=== PATIENT | male | born 1960 | race Caucasian/White ===

== ENCOUNTER 2019-01-05 16:57 | Inpatient (IN) | payer OTHER ==
[~2019-01-05] VITALS: Ht 177.8 cm; Wt 80.0 kg
[2019-01-06] VITALS (11 sets, daily range): BP systolic 113–139; BP diastolic 54–88; PULSE 60–101; RESP 18–20; Ht 177.8 cm; Wt 80.0 kg
[2019-01-06] MEDS ORDERED: VANCOMYCIN IV PER PHARMACY XX SCH (01:00)
[2019-01-06] MEDS ORDERED: ONDANSETRON 4 MG INJ IV PRN (01:00)
[2019-01-06] MEDS ORDERED: ACETAMINOPHEN 325 MG TAB PO PRN (01:00)
[2019-01-06] MEDS ORDERED: VANCOMYCIN HCL 1.5 GM in SOD CHLORIDE 0.9% 250 ML IVPB ONE (02:00)
[2019-01-06] MEDS: RANITIDINE 150 MG TAB PO SCH ×3 (02:18→20:12)
--- NOTE | 2019-01-06 03:18 | HP ---
Date/Time of Note Date/Time of Note DATE: 01/06/19 TIME: 03:14 Assessment/Plan VTE Prophylaxis SCD applied (from Ns): Yes Pharmacological prophylaxis: other Assessment/Plan Hospital Course Assessment and plan: 58-year-old male past medical history of indwelling catheter secondary to recurrent UTIs, hypospadism, homelessness, hypertension, drug abuse, who was transferred over here due to insurance purposes after presenting to outside emergency room with chills and body aches, signs of likely urinary tract infection. 1. Recurrent UTIs: Again patient has positive UA and elevated white blood cell count. History of recurrent UTIs multidrug-resistant -For now patient will be placed on aztreonam antibiotics given his penicillin allergy, and will obtain infectious disease consult. -Follow-up TSH, A1c, lipid panel. Tylenol PRN pain fevers, follow final culture results, IV fluids 2. Hypertension: Blood pressure is presently stable -Monitor, continue current PRN medications 3. Homelessness: We will get social work therapist consult 4. History of drug use: Counseled on cessation, monitor for signs of withdrawal HPI/ROS Admit Date/Time Admit Date/Time Jan 05, 2019 at 22:58 Hx of Present Illness 58-year-old male past medical history of indwelling catheter secondary to recurrent UTIs, hypospadism, homelessness, hypertension, drug abuse, who was transferred over here due to insurance purposes after presenting to outside emergency room with chills and body aches. Patient diagnosed with UTI as his white blood cell count was found to be elevated at the outside hospital in the 19,000 range. Patient has a history of MDR UTIs in the past and for the last couple of weeks she has been having increased urinary frequency and dysuria and inability to empty his bladder. He also complained of hematuria. Also has been having some urinary incontinence. No upper or lower GI bleeding, no chest pain or shortness of breath, no diarrhea constipation. 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 PMH/Family/Social Past Medical History Medications Current Medications Nicotine (Nicoderm 21 Mg/ 24hr) 1 patch DAILY TRANSDERM ; Start 01/06/19 at 01:00 Acetaminophen (Tylenol Tab) 650 mg Q6H PRN PO MILD PAIN(1-3)OR ELEVATED TEMP; Start 01/06/19 at 01:00 Acetaminophen/ Hydrocodone Bitart ([place] (5/325)) 1 tab Q6H PRN PO MODERATE PAIN LEVEL 4-6; Start 01/06/19 at 01:00 Sodium Chloride 1,000 ml @ 100 mls/hr Q10H IV ; Start 01/06/19 at 01:00 Lorazepam (Ativan) 1 mg Q6H PRN IV ANXIETY; Start 01/06/19 at 01:00 Ondansetron HCl (Zofran Inj) 4 mg Q6H PRN IV NAUSEA AND/OR VOMITING; Start 01/06/19 at 01:00 Vancomycin HCl (Vanco Iv Per Pharmacy) VANCOMYCIN PER PHARMACY PER PROTOCOL XX ; Start 01/06/19 at 01:00 Aztreonam 2 gm/ Sodium Chloride 100 ml @ 100 mls/hr Q12 IVPB ; Start 01/06/19 at 09:00 Vancomycin HCl 1.5 gm/Sodium Chloride 250 ml @ 83.333 mls/ hr ONCE ONCE IVPB ; Start 01/06/19 at 02:00; Stop 01/06/19 at 04:59 Ranitidine HCl (Zantac) 150 mg BID PO Last administered on 01/06/19at 02:18; Admin Dose 150 MG; Start 01/06/19 at 02:01 Coded Allergies: Penicillins (Verified Allergy, Unknown, 12/05/13) Sulfa (Sulfonamide Antibiotics) (Verified Allergy, Unknown, 12/05/13) aspirin (Verified Allergy, Unknown, 12/05/13) Past Surgical History Past Surgical Hx: other (Multiple surgical repairs for the hypo-Spadia) Social History Alcohol Use: none Smoking Status: Unknown if ever smoked Drug Use: other (Multiple drugs) Exam/Review of Systems Vital Signs Vitals Vital Signs Date Temp Pulse Resp B/P (MAP) Pulse Ox O2 O2 Flow FiO2 Time Delivery Rate 01/06/19 90 00:00 Exam Exam Gen: Lying in bed, no acute distress Head: Atraumatic. Eyes: Normal Conjunctiva. ENT: Normal External Ears, Nose and Mouth. Neck: Full range of motion. No meningismus. Resp: Clear to auscultation bilaterally. Cardio: Regular rate and rhythm. Abd: Soft, nondistended, normal bowel sounds, non tender. Ext: No lower extremity edema bilaterally Neuro: No focal deficits RADHA CORTEZ Jan 06, 2019 03:18
[2019-01-06] MEDS: NICOTINE (21 MG/24 HR) PATCH TRANSDERM SCH (04:28)
[2019-01-06] MEDS: SOD CHLORIDE 0.45% 1,000 ML IV SCH ×3 (04:29→20:12)
[2019-01-06] MEDS: HYDROCODONE/APAP (5/325) TAB PO PRN ×2 (05:10→18:24)
[2019-01-06] MEDS: LORAZEPAM 2 MG INJ IV PRN (05:54)
[2019-01-06] MEDS ORDERED: AZTREONAM 2 GM in SOD CHLORIDE 0.9% 100 ML IVPB SCH ×4 (09:00)
--- NOTE | 2019-01-06 10:36 | PN ---
Date/Time of Note Date/Time of Note DATE: 01/06/19 TIME: 10:33 Assessment/Plan VTE Prophylaxis SCD applied (from Nsg): Yes Pharmacological prophylaxis: heparin Lines/Catheters IV Catheter Type (from Nrsg): Saline Lock Urinary Cath still in place: Yes (10 TURKMEN) Reason Cath still needed: urinary retention Assessment/Plan Problems: (1) Bacteremia due to Gram-negative bacteria Status: Acute Comment: Patient's on vancomycin and aztreonam due to the possibility of penicillin allergy. In addition historically were informed he has had multiple recurrent urinary tract infections with multiple drug-resistant bacteria. Colleagues at [facility] have already called and informed us that his blood cultures are already positive. Check with them in the morning about any final sensitivities and then repeat his blood cultures. (2) Chronic indwelling Saunders catheter Status: Chronic Comment: Noted. He was seen [address] Cervantes. (3) Hypospadias in male Status: Chronic Comment: Noted. (4) Chemical dependency Status: Chronic Comment: We will have health care social worker see him I am also going to go ahead and do a urine drug screen (5) Homeless single person Status: Chronic Comment: rn women services consult Result Diagram: 01/06/19 0525 01/06/19 0525 Results 24hrs Laboratory Tests Test 01/06/19 05:25 White Blood Count 18.8 H Red Blood Count 3.14 L Hemoglobin 8.4 L Hematocrit 25.8 L Mean Corpuscular Volume 82.2 Mean Corpuscular Hemoglobin 26.8 L Mean Corpuscular Hemoglobin Concent 32.6 Red Cell Distribution Width 13.7 Platelet Count 432 H Mean Platelet Volume 10.6 H Immature Granulocytes % 1.900 H Neutrophils % 77.1 H Lymphocytes % 12.2 L Monocytes % 7.6 Eosinophils % 0.8 Basophils % 0.4 Nucleated Red Blood Cells % 0.0 Immature Granulocytes # 0.350 H Neutrophils # 14.5 H Lymphocytes # 2.3 Monocytes # 1.4 H Eosinophils # 0.2 Basophils # 0.1 Nucleated Red Blood Cells # 0.0 Blood Urea Nitrogen 47 H Creatinine 2.44 H Hemoglobin A1c 5.6 B-Type Natriuretic Peptide 214 H Triglycerides Level 101 Cholesterol Level 80 L LDL Cholesterol, Calculated 48 HDL Cholesterol 12 L Cholesterol/HDL Ratio 6.6 Thyroid Stimulating Hormone (TSH) < 0.015 L Subjective 24 Hr Interval Summary Free Text/Dictation Patient is sleeping and difficult to arouse actually appears to be narcotize Constitutional: no complaints Exam/Review of Systems Exam Vitals Vital Signs Date Temp Pulse Resp B/P (MAP) Pulse Ox O2 O2 Flow FiO2 Time Delivery Rate 01/06/19 76 08:15 01/06/19 98.3 18 113/69 97 Room Air 07:23 (84) Intake and Output 01/05/19 01/05/19 01/06/19 1515:00 23:00 07:00 IntakeIntake Total 2200 ml OutputOutput Total 1400 ml BalanceBalance 800 ml Constitutional: other (Difficult to arouse but does speak will not open his eyes) Neck: supple, non-tender Respiratory: clear to auscultation, normal air movement Cardiovascular: regular rate and rhythm, nl pulses Gastrointestinal: soft, nl liver, spleen, non-tender Genitourinary - Male: other (Post previous with chronic catheter) Results Results 24hrs Laboratory Tests Test 01/06/19 05:25 White Blood Count 18.8 H Red Blood Count 3.14 L Hemoglobin 8.4 L Hematocrit 25.8 L Mean Corpuscular Volume 82.2 Mean Corpuscular Hemoglobin 26.8 L Mean Corpuscular Hemoglobin Concent 32.6 Red Cell Distribution Width 13.7 Platelet Count 432 H Mean Platelet Volume 10.6 H Immature Granulocytes % 1.900 H Neutrophils % 77.1 H Lymphocytes % 12.2 L Monocytes % 7.6 Eosinophils % 0.8 Basophils % 0.4 Nucleated Red Blood Cells % 0.0 Immature Granulocytes # 0.350 H Neutrophils # 14.5 H Lymphocytes # 2.3 Monocytes # 1.4 H Eosinophils # 0.2 Basophils # 0.1 Nucleated Red Blood Cells # 0.0 Blood Urea Nitrogen 47 H Creatinine 2.44 H Hemoglobin A1c 5.6 B-Type Natriuretic Peptide 214 H Triglycerides Level 101 Cholesterol Level 80 L LDL Cholesterol, Calculated 48 HDL Cholesterol 12 L Cholesterol/HDL Ratio 6.6 Thyroid Stimulating Hormone (TSH) < 0.015 L Medications Medication Current Medications Nicotine (Nicoderm 21 Mg/ 24hr) 1 patch DAILY TRANSDERM Last administered on 01/06/19at 04:28; Admin Dose 1 PATCH; Start 01/06/19 at 01:00 Acetaminophen (Tylenol Tab) 650 mg Q6H PRN PO MILD PAIN(1-3)OR ELEVATED TEMP; Start 01/06/19 at 01:00 Acetaminophen/ Hydrocodone Bitart ([place] (5/325)) 1 tab Q6H PRN PO MODERATE PAIN LEVEL 4-6 Last administered on 01/06/19at 05:10; Admin Dose 1 TAB; Start 01/06/19 at 01:00 Sodium Chloride 1,000 ml @ 100 mls/hr Q10H IV Last administered on 01/06/19 04:29; Admin Dose 100 MLS/HR; Start 01/06/19 at 01:00 Lorazepam (Ativan) 1 mg Q6H PRN IV ANXIETY Last administered on 01/06/19at 05:54; Admin Dose 1 MG; Start 01/06/19 at 01:00 Ondansetron HCl (Zofran Inj) 4 mg Q6H PRN IV NAUSEA AND/OR VOMITING; Start 01/06/19 at 01:00 Vancomycin HCl (Vanco Iv Per Pharmacy) VANCOMYCIN PER PHARMACY PER PROTOCOL XX ; Start 01/06/19 at 01:00 Aztreonam 2 gm/ Sodium Chloride 100 ml @ 100 mls/hr Q12 IVPB Last administered on 01/06/19at 09:02; Admin Dose 100 MLS/HR; Start 01/06/19 at 09:00 Ranitidine HCl (Zantac) 150 mg BID PO Last administered on 01/06/19at 02:18; Admin Dose 150 MG; Start 01/06/19 at 02:01 Vancomycin HCl 250 ml @ 125 mls/hr Q24H IVPB ; Start 01/07/19 at 05:00 LOKI LICEA MD Jan 06, 2019 10:35
[2019-01-06] MEDS: MEROPENEM 1 GM/50ML(PMX) 50 ML IVPB SCH ×2 (12:35→20:12)
--- NOTE | 2019-01-06 12:51 | CONS ---
DATE OF ADMISSION: 01/05/2019 DATE OF CONSULTATION: 01/06/2019 TYPE OF CONSULTATION: Infectious disease. REASON FOR CONSULTATION: Antibiotic management. HISTORY OF PRESENT ILLNESS: Reji Roger is a 58-year-old male with a history of: 1. Indwelling catheter secondary to recurrent UTIs. 2. Hypospadias. 3. Hypertension. 4. Drug abuse. 5. Homelessness. He presented to an outside emergency room with chills and body aches. He was diagnosed with a urinar y tract infection and his white blood cell count was elevated in the 19,000 range. He has a history of multidrug resistant UTIs in the past and for the last couple of weeks he has been having increasin g urinary frequency and dysuria and inability to empty his bladder. He also complains of hematuria a nd urinary incontinence. He has had surgical repairs for is hypospadia in the past. PAST MEDICAL HISTORY: As outlined. PAST SURGICAL HISTORY: Multiple surgeries for hypospadia. ALLERGIES: NONE TO PENICILLIN, SULFA OR FOODS. MEDICATIONS: Per chart. REVIEW OF SYSTEMS: As per HPI. PHYSICAL EXAMINATION: GENERAL: The patient is a well-developed, well-nourished male, awake, responsive, in no acute distre ss. VITAL SIGNS: Stable. He is afebrile. SKIN: Without generalized rash. HEENT: Within normal limits. NECK: Supple. LYMPH NODES: None palpable. CHEST: Decreased breath sounds at the bases. HEART: Without murmur or gallop. ABDOMEN: Soft, nontender, without organosplenomegaly or masses. EXTREMITIES: Without cyanosis or clubbing or edema. RECTAL AND GENITAL: Deferred. NEUROLOGIC: No focal neurological abnormality. IMPRESSION AND PLAN: The patient has recurrent urinary tract infections. He has positive UA and jalen vated white count. Patient was placed on aztreonam given his PENICILLIN ALLERGY. He is also on vanc omycin. My feeling is that we can change the aztreonam to meropenem. Continue the vancomycin for time being and I will dictate my findings to the hospitalist and to Dr. Carver who noticed that the patient has bacteremia due to gram-negative rods. His blood cultures are positive according to Meghan tobin. He was seen previously by Dr. Cervantes. He has a chronic indwelling Saunders catheter. His white co unt is 18.8, H and H of 8.4 and 25.8, platelet count 432,000. BUN and creatinine 47/2.44. As noted, I will change his aztreonam to meropenem. Dictated By: ROBBY WILLARD MD, JD/MICHAEL Conf#: [id number] DID#: [id number] CC: HOLLY MINER MD;*EndCC*
--- NOTE | 2019-01-06 15:29 | CONS ---
Assessment/Plan Assessment/Plan Hospital Course (Demo Recall) 58-year-old male was sent to the emergency room by his primary care physician because of recurrent urinary tract infection that could not be treated as an outpatient as he does have multidrug-resistant organisms and he has multiple allergies to oral antibiotics. Patient is known to have a history of hypospadias and underwent surgeries for that. That was complicated by urethral strictures. The patient was seen here in 2013 with urinary retention. He was taught to do self-catheterization. After he is discharge he did it for 5 days and then he stopped. He states that his housing condition did change and that the reason he did not continue to do it. Over time he started having urinary incontinence and wetting himself. He recently also was evicted from his apartment and now is living in his car. He went to the emergency room at [facility] and they were able to insert a 10 [place] Saunders catheter for him and drained over 2 L of urine. Patient was transferred here because of his insurance. Presently the patient is doing better. The Saunders catheter is draining clear urine. Would recommend to keep the Saunders catheter in and in a day or 2 I will remove it and dilate his urethra and restart him on intermittent catheterization. We have to have him resume doing his self-catheterization. That will have 2 purposes one is to keep the urethra open and the second 1 to keep the bladder empty which is the reason why he developed recurrent infection and multidrug- resistant urinary tract infection. Consultation Date/Type/Reason Admit Date/Time Jan 05, 2019 at 22:58 Date of Consultation: Jan 06, 2019 Type of Consult Urology Reason for Consultation Urinary retention and recurrent urinary tract infections Requesting Provider: HOLLY MINER Date/Time of Note DATE: 01/06/19 TIME: 15:17 Hx of Present Illness 58-year-old male was sent to the emergency room by his primary care physician because of recurrent urinary tract infection that could not be treated as an outpatient as he does have multidrug-resistant organisms and he has multiple allergies to oral antibiotics. Patient is known to have a history of hypospad ias and underwent surgeries for that. That was complicated by urethral strictures. The patient was seen here in 2013 with urinary retention. He was taught to do self-catheterization. After he is discharge he did it for 5 days and then he stopped. He states that his housing condition did change and that the reason he did not continue to do it. Over time he started having urinary incontinence and wetting himself. He recently also was evicted from his apartment and now is living in his car. He went to the emergency room at [facility] and they were able to insert a 10 [place] Saunders catheter for him and drained over 2 L of urine. Patient was transferred here because of his insurance. Constitutional: no complaints Eyes: no complaints ENT: no complaints Respiratory: No shortness of breath Cardiovascular: No chest pain Gastrointestinal: other (He reports fecal incontinence at some time) Genitourinary: other (Urinary retention and urinary incontinence.) Musculoskeletal: no complaints Skin: no complaints Neurologic: no complaints Endocrine: no complaints Psychological: no complaints Past Medical History Medical History: urinary tract infection Home Meds No Active Prescriptions or Reported Meds Medications Current Medications Nicotine (Nicoderm 21 Mg/ 24hr) 1 patch DAILY TRANSDERM Last administered on 01/06/19at 04:28; Admin Dose 1 PATCH; Start 01/06/19 at 01:00 Acetaminophen (Tylenol Tab) 650 mg Q6H PRN PO MILD PAIN(1-3)OR ELEVATED TEMP; Start 01/06/19 at 01:00 Acetaminophen/ Hydrocodone Bitart ([place] (5/325)) 1 tab Q6H PRN PO MODERATE PAIN LEVEL 4-6 Last administered on 01/06/19at 05:10; Admin Dose 1 TAB; Start 01/06/19 at 01:00 Sodium Chloride 1,000 ml @ 100 mls/hr Q10H IV Last administered on 01/06/19at 04:29; Admin Dose 100 MLS/HR; Start 01/06/19 at 01:00 Lorazepam (Ativan) 1 mg Q6H PRN IV ANXIETY Last administered on 01/06/19at 05:54; Admin Dose 1 MG; Start 01/06/19 at 01:00 Ondansetron HCl (Zofran Inj) 4 mg Q6H PRN IV NAUSEA AND/OR VOMITING; Start 01/06/19 at 01:00 Vancomycin HCl (Vanco Iv Per Pharmacy) VANCOMYCIN PER PHARMACY PER PROTOCOL XX ; Start 01/06/19 at 01:00 Ranitidine HCl (Zantac) 150 mg BID PO Last administered on 01/06/19at 12:32; Admin Dose 150 MG; Start 01/06/19 at 02:01 Vancomycin HCl 250 ml @ 125 mls/hr Q24H IVPB ; Start 01/07/19 at 05:00 Meropenem/Sodium Chloride 50 ml @ 100 mls/hr Q12 IVPB Last administered on 01/06/19at 12:35; Admin Dose 100 MLS/HR; Start 01/06/19 at 12:00 Allergies: Coded Allergies: Penicillins (Verified Allergy, Unknown, 12/05/13) Sulfa (Sulfonamide Antibiotics) (Verified Allergy, Unknown, 12/05/13) aspirin (Verified Allergy, Unknown, 12/05/13) Past Surgical History Past Surgical Hx: other (Multiple surgical repairs for the hypospadias) Social History Alcohol Use: none Smoking Status: Former smoker Drug Use: other (Multiple drugs) Other Social History Patient is presently homeless Exam/Review of Systems Exam Vitals Vital Signs Date Temp Pulse Resp B/P (MAP) Pulse Ox O2 O2 Flow FiO2 Time Delivery Rate 01/06/19 98.0 60 18 114/54 97 Room Air 15:12 (74) Intake and Output 01/05/19 01/05/19 01/06/19 1515:00 23:00 07:00 IntakeIntake Total 2200 ml OutputOutput Total 1400 ml BalanceBalance 800 ml Constitutional: alert Psych: no complaints Head: normocephalic Eyes: nl conjunctiva ENMT: nl external ears & nose Neck: supple Respiratory: No wheezing Cardiovascular: No jugular venous distention (JVD) Gastrointestinal: soft; No bowel sounds, No surgical scars Genitourinary - Male: other (Hypospadias the urethral meatus is at the distal end of the penile shaft proximal to the silverman. Patient does have a 10 [place] Saunders catheter) Musculoskeletal: nl extremities to inspection Extremities: No calf tenderness Neurological: nl mental status Results Result Diagram: 01/06/19 0525 01/06/19 0525 Results 24hrs Laboratory Tests Test 01/06/19 05:25 01/06/19 12:54 White Blood Count 18.8 H Red Blood Count 3.14 L Hemoglobin 8.4 L Hematocrit 25.8 L Mean Corpuscular Volume 82.2 Mean Corpuscular Hemoglobin 26.8 L Mean Corpuscular Hemoglobin Concent 32.6 Red Cell Distribution Width 13.7 Platelet Count 432 H Mean Platelet Volume 10.6 H Immature Granulocytes % 1.900 H Neutrophils % 77.1 H Lymphocytes % 12.2 L Monocytes % 7.6 Eosinophils % 0.8 Basophils % 0.4 Nucleated Red Blood Cells % 0.0 Immature Granulocytes # 0.350 H Neutrophils # 14.5 H Lymphocytes # 2.3 Monocytes # 1.4 H Eosinophils # 0.2 Basophils # 0.1 Nucleated Red Blood Cells # 0.0 Blood Urea Nitrogen 47 H Creatinine 2.44 H Hemoglobin A1c 5.6 B-Type Natriuretic Peptide 214 H Triglycerides Level 101 Cholesterol Level 80 L LDL Cholesterol, Calculated 48 HDL Cholesterol 12 L Cholesterol/HDL Ratio 6.6 Thyroid Stimulating Hormone (TSH) < 0.015 L Iron Level 20 L Total Iron Binding Capacity 188 L Percent Iron Saturation 11 L Ferritin 411.0 H Rapid Plasma Reagin NONREACTIVE Hepatitis B Surface Antigen NEGATIVE Hepatitis C Antibody NEGATIVE Medications Medication Current Medications Nicotine (Nicoderm 21 Mg/ 24hr) 1 patch DAILY TRANSDERM Last administered on 01/06/19at 04:28; Admin Dose 1 PATCH; Start 01/06/19 at 01:00 Acetaminophen (Tylenol Tab) 650 mg Q6H PRN PO MILD PAIN(1-3)OR ELEVATED TEMP; Start 01/06/19 at 01:00 Acetaminophen/ Hydrocodone Bitart ([place] (5/325)) 1 tab Q6H PRN PO MODERATE PAIN LEVEL 4-6 Last administered on 01/06/19at 05:10; Admin Dose 1 TAB; Start 01/06/19 at 01:00 Sodium Chloride 1,000 ml @ 100 mls/hr Q10H IV Last administered on 01/06/19at 04:29; Admin Dose 100 MLS/HR; Start 01/06/19 at 01:00 Lorazepam (Ativan) 1 mg Q6H PRN IV ANXIETY Last administered on 01/06/19at 05:54; Admin Dose 1 MG; Start 01/06/19 at 01:00 Ondansetron HCl (Zofran Inj) 4 mg Q6H PRN IV NAUSEA AND/OR VOMITING; Start 01/06/19 at 01:00 Vancomycin HCl (Vanco Iv Per Pharmacy) VANCOMYCIN PER PHARMACY PER PROTOCOL XX ; Start 01/06/19 at 01:00 Ranitidine HCl (Zantac) 150 mg BID PO Last administered on 01/06/19at 12:32; Admin Dose 150 MG; Start 01/06/19 at 02:01 Vancomycin HCl 250 ml @ 125 mls/hr Q24H IVPB ; Start 01/07/19 at 05:00 Meropenem/Sodium Chloride 50 ml @ 100 mls/hr Q12 IVPB Last administered on 01/06/19at 12:35; Admin Dose 100 MLS/HR; Start 01/06/19 at 12:00 KELSI PARKER MD Jan 06, 2019 15:29
[2019-01-07] VITALS (9 sets, daily range): BP systolic 106–136; BP diastolic 58–74; PULSE 67–86; RESP 17–18
[2019-01-07] MEDS ORDERED: VANCOMYCIN 1 GM 250 ML IVPB SCH (05:00)
[2019-01-07] MEDS ORDERED: LACTATED RINGER'S 500 ML IV ONE ×2 (08:30→08:35)
[2019-01-07] MEDS: MEROPENEM 1 GM/50ML(PMX) 50 ML IVPB SCH ×2 (08:53→20:02)
[2019-01-07] MEDS: SOD CHLORIDE 0.45% 1,000 ML IV SCH ×2 (08:53→17:00)
[2019-01-07] MEDS: RANITIDINE 150 MG TAB PO SCH ×2 (08:55→20:02)
[2019-01-07] MEDS: NICOTINE (21 MG/24 HR) PATCH TRANSDERM SCH (08:55)
--- NOTE | 2019-01-07 10:14 | PN ---
Date/Time of Note Date/Time of Note DATE: 01/07/19 TIME: 10:10 Assessment/Plan VTE Prophylaxis Risk score (from [facility] [place])>0 risk: 1 SCD applied (from Ns): No SCD contraindicated: low risk/ambulating Pharmacological prophylaxis: heparin Pharm contraindication: low risk/ambulating Lines/Catheters IV Catheter Type (from [facility]): Peripheral IV Urinary Cath still in place: Yes (10 slovak) Reason Cath still needed: urinary retention Assessment/Plan Problems: (1) Bacteremia due to Gram-negative bacteria Status: Acute Comment: I called the [facility] and the [facility] laboratory. They identify the blood cultures as being gram-negative rods that are sensitive to ampicillin, Zosyn, gentamicin, Bactrim and cefazolin and resistant to Cipro. I requested them to send fax over copies report to the nursing station fax machine. Once we have the paper copy which we can scan into the chart adjust the antibiotics or as per infectious diseases (2) Urinary retention Status: Acute Comment: Please see consultation from Dr. Cervantes. (3) Hypospadias in male Status: Chronic Comment: Noted. (4) Chronic indwelling Saunders catheter Status: Chronic Comment: Please see recommendations from Dr. Cervantes (5) Chronic kidney disease (CKD) stage G3b/A2, moderately decreased glomerular filtration rate (GFR) between 30-44 mL/min/1.73 square meter and albuminuria creatinine ratio between 30-299 mg/g Status: Chronic Comment: Noted. Fortunately stable (6) Homeless single person Status: Chronic Comment: Assistance from case management and social workers (7) Smoker Status: Chronic Comment: Counseled (8) Chemical dependency Status: Chronic Comment: Assistance from case management and social workers Result Diagram: 01/07/19 0458 01/07/19 0458 Results 24hrs Laboratory Tests Test 01/06/19 12:54 01/06/19 18:20 01/07/19 04:58 Iron Level 20 L Total Iron Binding Capacity 188 L Percent Iron Saturation 11 L Ferritin 411.0 H Rapid Plasma Reagin NONREACTIVE Hepatitis B Surface Antigen NEGATIVE Hepatitis C Antibody NEGATIVE Urine Opiates Screen Negative Urine Barbiturates Negative Urine Amphetamines Screen Positive Urine Benzodiazepines Screen Negative Urine Cocaine Screen Positive Urine Cannabinoids Negative White Blood Count 15.0 #H Red Blood Count 3.13 L Hemoglobin 8.5 L Hematocrit 26.2 L Mean Corpuscular Volume 83.7 Mean Corpuscular Hemoglobin 27.2 L Mean Corpuscular Hemoglobin Concent 32.4 Red Cell Distribution Width 13.8 Platelet Count 450 H Mean Platelet Volume 10.6 H Immature Granulocytes % 2.000 H Neutrophils % 72.4 Lymphocytes % 15.0 Monocytes % 8.6 Eosinophils % 1.5 Basophils % 0.5 Nucleated Red Blood Cells % 0.0 Immature Granulocytes # 0.300 H Neutrophils # 10.8 H Lymphocytes # 2.3 Monocytes # 1.3 H Eosinophils # 0.2 Basophils # 0.1 Nucleated Red Blood Cells # 0.0 Erythrocyte Sedimentation Rate 116 H Sodium Level 138 Potassium Level 4.8 Chloride Level 106 Carbon Dioxide Level 25 Anion Gap 7 Blood Urea Nitrogen 42 H Creatinine 2.02 H Est Glomerular Filtrat Rate mL/min 34 L Glucose Level 139 Calcium Level 8.7 Total Bilirubin 0.2 Direct Bilirubin 0.00 Indirect Bilirubin 0.2 Aspartate Amino Transf (AST/SGOT) 18 Alanine Aminotransferase (ALT/SGPT) 20 Alkaline Phosphatase 107 Total Protein 5.9 L Albumin 2.7 L Globulin 3.20 Albumin/Globulin Ratio 0.84 Subjective 24 Hr Interval Summary Free Text/Dictation Patient reports he is feeling better today and would like to start ambulating. He is concerned that the catheter in his bladder may not be inserted quite far enough Constitutional: no complaints Respiratory: no complaints Cardiovascular: no complaints Gastrointestinal: no complaints Genitourinary: other (Sense of urgency) Musculoskeletal: no complaints Skin: no complaints Exam/Review of Systems Exam Vitals Vital Signs Date Temp Pulse Resp B/P (MAP) Pulse Ox O2 O2 Flow FiO2 Time Delivery Rate 01/07/19 77 08:00 01/07/19 98.0 17 136/68 98 07:31 (90) 01/06/19 Room Air 15:12 Intake and Output 01/06/19 01/06/19 01/07/19 1515:00 23:00 07:00 IntakeIntake Total 100 ml 2160 ml 800 ml OutputOutput Total 1840 ml 1500 ml BalanceBalance 100 ml 320 ml -700 ml Constitutional: alert, oriented Neck: supple, non-tender Respiratory: clear to auscultation, normal air movement Cardiovascular: regular rate and rhythm, nl pulses Gastrointestinal: soft, nl liver, spleen, non-tender Results Results 24hrs Laboratory Tests Test 01/06/19 12:54 6/8/19 18:20 01/07/19 04:58 Iron Level 20 L Total Iron Binding Capacity 188 L Percent Iron Saturation 11 L Ferritin 411.0 H Rapid Plasma Reagin NONREACTIVE Hepatitis B Surface Antigen NEGATIVE Hepatitis C Antibody NEGATIVE Urine Opiates Screen Negative Urine Barbiturates Negative Urine Amphetamines Screen Positive Urine Benzodiazepines Screen Negative Urine Cocaine Screen Positive Urine Cannabinoids Negative White Blood Count 15.0 #H Red Blood Count 3.13 L Hemoglobin 8.5 L Hematocrit 26.2 L Mean Corpuscular Volume 83.7 Mean Corpuscular Hemoglobin 27.2 L Mean Corpuscular Hemoglobin Concent 32.4 Red Cell Distribution Width 13.8 Platelet Count 450 H Mean Platelet Volume 10.6 H Immature Granulocytes % 2.000 H Neutrophils % 72.4 Lymphocytes % 15.0 Monocytes % 8.6 Eosinophils % 1.5 Basophils % 0.5 Nucleated Red Blood Cells % 0.0 Immature Granulocytes # 0.300 H Neutrophils # 10.8 H Lymphocytes # 2.3 Monocytes # 1.3 H Eosinophils # 0.2 Basophils # 0.1 Nucleated Red Blood Cells # 0.0 Erythrocyte Sedimentation Rate 116 H Sodium Level 138 Potassium Level 4.8 Chloride Level 106 Carbon Dioxide Level 25 Anion Gap 7 Blood Urea Nitrogen 42 H Creatinine 2.02 H Est Glomerular Filtrat Rate mL/min 34 L Glucose Level 139 Calcium Level 8.7 Total Bilirubin 0.2 Direct Bilirubin 0.00 Indirect Bilirubin 0.2 Aspartate Amino Transf (AST/SGOT) 18 Alanine Aminotransferase (ALT/SGPT) 20 Alkaline Phosphatase 107 Total Protein 5.9 L Albumin 2.7 L Globulin 3.20 Albumin/Globulin Ratio 0.84 Medications Medication Current Medications Nicotine (Nicoderm 21 Mg/ 24hr) 1 patch DAILY TRANSDERM Last administered on 01/07/19at 08:55; Admin Dose 1 PATCH; Start 01/06/19 at 01:00 Acetaminophen (Tylenol Tab) 650 mg Q6H PRN PO MILD PAIN(1-3)OR ELEVATED TEMP; Start 01/06/19 at 01:00 Acetaminophen/ Hydrocodone Bitart ([place] (5/325)) 1 tab Q6H PRN PO MODERATE PAIN LEVEL 4-6 Last administered on 01/06/19at 18:24; Admin Dose 1 TAB; Start 01/06/19 at 01:00 Sodium Chloride 1,000 ml @ 100 mls/hr Q10H IV Last administered on 01/07/19 08:53; Admin Dose 100 MLS/HR; Start 01/06/19 at 01:00 Lorazepam (Ativan) 1 mg Q6H PRN IV ANXIETY Last administered on 01/06/19at 05:54; Admin Dose 1 MG; Start 01/06/19 at 01:00 Ondansetron HCl (Zofran Inj) 4 mg Q6H PRN IV NAUSEA AND/OR VOMITING; Start 01/06/19 at 01:00 Vancomycin HCl (Vanco Iv Per Pharmacy) VANCOMYCIN PER PHARMACY PER PROTOCOL XX ; Start 01/06/19 at 01:00 Ranitidine HCl (Zantac) 150 mg BID PO Last administered on 01/07/19 08:55; Admin Dose 150 MG; Start 01/06/19 at 02:01 Vancomycin HCl 250 ml @ 125 mls/hr Q24H IVPB Last administered on 01/07/19 05:15; Admin Dose 125 MLS/HR; Start 01/07/19 at 05:00 Meropenem/Sodium Chloride 50 ml @ 100 mls/hr Q12 IVPB Last administered on 01/07/19 08:53; Admin Dose 100 MLS/HR; Start 01/06/19 at 12:00 LOKI LICEA MD Jan 07, 2019 10:14
--- NOTE | 2019-01-07 15:13 | CONS ---
Assessment/Plan Assessment/Plan Hospital Course (Demo Recall) ID PROGRESS NOTE CURRENT ABX: DAY # =>Vanco IV + Merrem 01/07/1945701/07/19457 HPI REVIEWED * 58-year-old male past medical history of indwelling catheter secondary to recurrent UTIs, hypospadias, homelessness, hypertension, drug abuse, who was transferred over here due to insurance purposes after presenting to outside emergency room with chills and body aches, signs of likely urinary tract infection. 24H INTERVAL SUMMARY * Resting, no fevers, VSS, NAD, without dyspnea -- no c/o * Indwelling FC in place * 01/06/19 ABD XR: Mild to moderate diffuse constipation. Otherwise, unremarkable abdomen radiograph. MICRO/OTHER * 01/06/19 BCX (-) * MRSA Nares ----> Pending PHYSICAL EXAMINATION: GENERAL: VSS, NAD HEENT: AT, NC, anicteric, NECK: Supple, CHEST: Equal chest rise bilaterally, without dyspnea on observation HEART: Pulse RRR ABDOMEN: Soft : deferred EXTREMITIES: Warm, dry SKIN: No rash, no diaphoresis ID ASSESSMENT 58 yo M admit with: 1. GNR SEPSIS 1) Bacteremia due to Gram-negative bacteria * Per [facility] regional laboratory> GNR sensitive to ampicillin, Zosyn, gentamicin, Bactrim and cefazolin and resistant to Cipro. * FAX from [place] requested to chart per notes 2. Recurrent GNR UTI 3. Urinary retention 4. Hypospadias in male 5. Chronic indwelling Saunders catheter 6. Chronic kidney disease (CKD) stage G3b/A2, moderately decreased glomerular filtration rate (GFR) between 30-44 = STABLE 7. Homeless single person 8. Tobaccoism -- long-term current smoker 9. Chemical dependency per notes ABX ALLERGIES: PCN/Sulfa INVASIVES: PIV FC CURRENT ABX: DAY # => Vanco IV + Merrem ID RECOMMENDATIONS/PLAN: 1. Continue Merrem for GNR bacteremia recurrent UTI -- DC Vanco IV no clear indication for this 1. Await results of [facility] lab results Consultation Date/Type/Reason Admit Date/Time Jan 05, 2019 at 22:58 Initial Consult Date 01/06/19 Requesting Provider: HOLLY MINER Date/Time of Note DATE: 01/07/19 TIME: 15:12 Exam/Review of Systems Exam Vitals Vital Signs Date Temp Pulse Resp B/P (MAP) Pulse Ox O2 O2 Flow FiO2 Time Delivery Rate 01/07/19 76 12:00 01/07/19 98.3 18 122/74 97 11:53 (90) 01/06/19 Room Air 15:12 Intake and Output 01/06/19 01/06/19 01/07/19 1515:00 23:00 07:00 IntakeIntake Total 100 ml 2160 ml 800 ml OutputOutput Total 1840 ml 1500 ml BalanceBalance 100 ml 320 ml -700 ml Results Result Diagram: 01/07/19 0458 01/07/19 0458 Results 24hrs Laboratory Tests Test 01/06/19 18:20 01/07/19 04:58 Urine Opiates Screen Negative Urine Barbiturates Negative Urine Amphetamines Screen Positive Urine Benzodiazepines Screen Negative Urine Cocaine Screen Positive Urine Cannabinoids Negative White Blood Count 15.0 #H Red Blood Count 3.13 L Hemoglobin 8.5 L Hematocrit 26.2 L Mean Corpuscular Volume 83.7 Mean Corpuscular Hemoglobin 27.2 L Mean Corpuscular Hemoglobin Concent 32.4 Red Cell Distribution Width 13.8 Platelet Count 450 H Mean Platelet Volume 10.6 H Immature Granulocytes % 2.000 H Neutrophils % 72.4 Lymphocytes % 15.0 Monocytes % 8.6 Eosinophils % 1.5 Basophils % 0.5 Nucleated Red Blood Cells % 0.0 Immature Granulocytes # 0.300 H Neutrophils # 10.8 H Lymphocytes # 2.3 Monocytes # 1.3 H Eosinophils # 0.2 Basophils # 0.1 Nucleated Red Blood Cells # 0.0 Erythrocyte Sedimentation Rate 116 H Sodium Level 138 Potassium Level 4.8 Chloride Level 106 Carbon Dioxide Level 25 Anion Gap 7 Blood Urea Nitrogen 42 H Creatinine 2.02 H Est Glomerular Filtrat Rate mL/min 34 L Glucose Level 139 Calcium Level 8.7 Total Bilirubin 0.2 Direct Bilirubin 0.00 Indirect Bilirubin 0.2 Aspartate Amino Transf (AST/SGOT) 18 Alanine Aminotransferase (ALT/SGPT) 20 Alkaline Phosphatase 107 Total Protein 5.9 L Albumin 2.7 L Globulin 3.20 Albumin/Globulin Ratio 0.84 Medications Medication Current Medications Nicotine (Nicoderm 21 Mg/ 24hr) 1 patch DAILY TRANSDERM Last administered on 01/07/19at 08:55; Admin Dose 1 PATCH; Start 01/06/19 at 01:00 Acetaminophen (Tylenol Tab) 650 mg Q6H PRN PO MILD PAIN(1-3)OR ELEVATED TEMP; Start 01/06/19 at 01:00 Acetaminophen/ Hydrocodone Bitart ([place] (5/325)) 1 tab Q6H PRN PO MODERATE PAIN LEVEL 4-6 Last administered on 01/06/19 18:24; Admin Dose 1 TAB; Start 01/06/19 at 01:00 Sodium Chloride 1,000 ml @ 100 mls/hr Q10H IV Last administered on 01/07/19 08:53; Admin Dose 100 MLS/HR; Start 01/06/19 at 01:00 Lorazepam (Ativan) 1 mg Q6H PRN IV ANXIETY Last administered on 01/06/19 05:54; Admin Dose 1 MG; Start 01/06/19 at 01:00 Ondansetron HCl (Zofran Inj) 4 mg Q6H PRN IV NAUSEA AND/OR VOMITING; Start 01/06/19 at 01:00 Vancomycin HCl (Vanco Iv Per Pharmacy) VANCOMYCIN PER PHARMACY PER PROTOCOL XX ; Start 01/06/19 at 01:00 Ranitidine HCl (Zantac) 150 mg BID PO Last administered on 01/07/19 08:55; Admin Dose 150 MG; Start 01/06/19 at 02:01 Vancomycin HCl 250 ml @ 125 mls/hr Q24H IVPB Last administered on 01/07/19 05:15; Admin Dose 125 MLS/HR; Start 01/07/19 at 05:00 Meropenem/Sodium Chloride 50 ml @ 100 mls/hr Q12 IVPB Last administered on 01/07/19 08:53; Admin Dose 100 MLS/HR; Start 01/06/19 at 12:00 EPI BORGES NP Jan 07, 2019 15:13
[2019-01-07] MEDS: HYDROCODONE/APAP (5/325) TAB PO PRN (20:02)
[2019-01-08] VITALS (10 sets, daily range): BP systolic 116–142; BP diastolic 64–75; PULSE 63–84; RESP 18–20
[2019-01-08] MEDS: SOD CHLORIDE 0.45% 1,000 ML IV SCH ×4 (03:25→23:00)
[2019-01-08] MEDS: NICOTINE (21 MG/24 HR) PATCH TRANSDERM SCH (09:42)
[2019-01-08] MEDS: RANITIDINE 150 MG TAB PO SCH ×2 (09:42→21:41)
[2019-01-08] MEDS: MEROPENEM 1 GM/50ML(PMX) 50 ML IVPB SCH ×2 (09:43→21:41)
[2019-01-08] MEDS: HYDROCODONE/APAP (5/325) TAB PO PRN ×2 (09:54→21:53)
[2019-01-08] MEDS ORDERED: CALAMINE/PRAMOXINE LOT 180 ML BTL TOP PRN (11:30)
--- NOTE | 2019-01-08 12:28 | PN ---
Date/Time of Note Date/Time of Note DATE: 01/08/19 TIME: 12:21 Assessment/Plan VTE Prophylaxis Risk score (from [facility] [place])>0 risk: 1 SCD applied (from [facility] [place]): No SCD contraindicated: low risk/ambulating Pharmacological prophylaxis: NA/contraindicated Pharm contraindication: bleeding Lines/Catheters IV [facility]ter Type (from [facility]): Peripheral IV Urinary Cath still in place: Yes (10 romanian) Reason Cath still needed: urinary retention Assessment/Plan Assessment/Plan 1. Acute GNR bacteremia - ID on board for antibiotic recommendations. Awaiting sensitivities from OSH. Continue on Meropenem for now - still with elevated WBC but remains afebrile - source most likely UTI 2. UTI - Urology consultation appreciated. continue with jones and jones care - antibiotics per ID recommendations - urine clear with minimal sediment present in tubing 3. LADAN on CKD - unsure baseline but Cr continues to improve - good urine outpt - continue IVF 4. Homelessness - SW consultation appreciated for resources 5. Urinary retention - jones care - Urology on board 6. Tobacco abuse - cessation counseling offered 7. Disposition - awaiting sensitives from OSH for blood/urine cultures - continue monitoring for improvement in renal function Result Diagram: 01/08/1952001/08/1921 Results 24hrs Laboratory Tests Test 01/08/19 05:21 White Blood Count 15.6 H Red Blood Count 3.26 L Hemoglobin 8.7 L Hematocrit 26.7 L Mean Corpuscular Volume 81.9 L Mean Corpuscular Hemoglobin 26.7 L Mean Corpuscular Hemoglobin Concent 32.6 Red Cell Distribution Width 13.7 Platelet Count 489 H Mean Platelet Volume 10.2 Immature Granulocytes % 2.900 H Neutrophils % 68.2 Lymphocytes % 16.5 Monocytes % 9.4 Eosinophils % 2.4 Basophils % 0.6 Nucleated Red Blood Cells % 0.0 Immature Granulocytes # 0.460 H Neutrophils # 10.7 H Lymphocytes # 2.6 Monocytes # 1.5 H Eosinophils # 0.4 Basophils # 0.1 Nucleated Red Blood Cells # 0.0 Sodium Level 139 Potassium Level 5.1 Chloride Level 106 Carbon Dioxide Level 25 Anion Gap 8 Blood Urea Nitrogen 36 H Creatinine 1.89 H Est Glomerular Filtrat Rate mL/min 37 L Glucose Level 105 Calcium Level 8.9 Total Bilirubin 0.2 Direct Bilirubin 0.00 Indirect Bilirubin 0.2 Aspartate Amino Transf (AST/SGOT) 17 Alanine Aminotransferase (ALT/SGPT) 25 Alkaline Phosphatase 107 Total Protein 6.5 Albumin 2.8 L Globulin 3.70 H Albumin/Globulin Ratio 0.75 Subjective 24 Hr Interval Summary Free Text/Dictation Patient is complaining of itching around rectal area. Patient feeling congested given has not really left his room. Ambulating without any issues to the restroom. Exam/Review of Systems Exam Vitals Vital Signs Date Temp Pulse Resp B/P (MAP) Pulse Ox O2 O2 Flow FiO2 Time Delivery Rate 01/08/19 98.4 79 19 118/75 95 12:02 (89) 01/06/19 Room Air 15:12 Intake and Output 01/07/19 01/07/19 01/08/19 1515:00 23:00 07:00 IntakeIntake Total 1250 ml 1750 ml OutputOutput Total 2500 ml 1200 ml BalanceBalance -1250 ml 550 ml Exam General: no acute distress. answering questions appropriately Neck: supple Chest: nontender CVS: S1, S2, regular rate and rhythm. no murmurs Lungs: clear to auscultation bilaterally. no wheezing or rhonchi Abd: soft, nontender, nondistended. no rebound or guarding. bowel sounds present diffusely : jones in place. clear urine. minimal dark sediment. no ciara bleeding Ext: moving all extremities SKin: warm, dry Results Results 24hrs Laboratory Tests Test 01/08/19 05:21 White Blood Count 15.6 H Red Blood Count 3.26 L Hemoglobin 8.7 L Hematocrit 26.7 L Mean Corpuscular Volume 81.9 L Mean Corpuscular Hemoglobin 26.7 L Mean Corpuscular Hemoglobin Concent 32.6 Red Cell Distribution Width 13.7 Platelet Count 489 H Mean Platelet Volume 10.2 Immature Granulocytes % 2.900 H Neutrophils % 68.2 Lymphocytes % 16.5 Monocytes % 9.4 Eosinophils % 2.4 Basophils % 0.6 Nucleated Red Blood Cells % 0.0 Immature Granulocytes # 0.460 H Neutrophils # 10.7 H Lymphocytes # 2.6 Monocytes # 1.5 H Eosinophils # 0.4 Basophils # 0.1 Nucleated Red Blood Cells # 0.0 Sodium Level 139 Potassium Level 5.1 Chloride Level 106 Carbon Dioxide Level 25 Anion Gap 8 Blood Urea Nitrogen 36 H Creatinine 1.89 H Est Glomerular Filtrat Rate mL/min 37 L Glucose Level 105 Calcium Level 8.9 Total Bilirubin 0.2 Direct Bilirubin 0.00 Indirect Bilirubin 0.2 Aspartate Amino Transf (AST/SGOT) 17 Alanine Aminotransferase (ALT/SGPT) 25 Alkaline Phosphatase 107 Total Protein 6.5 Albumin 2.8 L Globulin 3.70 H Albumin/Globulin Ratio 0.75 Medications Medication Current Medications Nicotine (Nicoderm 21 Mg/ 24hr) 1 patch DAILY TRANSDERM Last administered on 01/08/19 09:42; Admin Dose 1 PATCH; Start 01/06/19 at 01:00 Acetaminophen (Tylenol Tab) 650 mg Q6H PRN PO MILD PAIN(1-3)OR ELEVATED TEMP; Start 01/06/19 at 01:00 Acetaminophen/ Hydrocodone Bitart ([place] (5/325)) 1 tab Q6H PRN PO MODERATE PAIN LEVEL 4-6 Last administered on 01/08/19 09:54; Admin Dose 1 TAB; Start 01/06/19 at 01:00 Sodium Chloride 1,000 ml @ 100 mls/hr Q10H IV Last administered on 01/08/19 03:25; Admin Dose 100 MLS/HR; Start 01/06/19 at 01:00 Lorazepam (Ativan) 1 mg Q6H PRN IV ANXIETY Last administered on 01/06/19 05:54; Admin Dose 1 MG; Start 01/06/19 at 01:00 Ondansetron HCl (Zofran Inj) 4 mg Q6H PRN IV NAUSEA AND/OR VOMITING; Start 01/06/19 at 01:00 Ranitidine HCl (Zantac) 150 mg BID PO Last administered on 01/08/19 09:42; Admin Dose 150 MG; Start 01/06/19 at 02:01 Meropenem/Sodium Chloride 50 ml @ 100 mls/hr Q12 IVPB Last administered on 01/08/19 09:43; Admin Dose 100 MLS/HR; Start 01/06/19 at 12:00 Calamine/Pramoxine (Caladryl Lotion) 1 applic Q2H PRN TOP itching; Start 01/08/19 at 11:30 MADISON GOODE MD Jan 08, 2019 12:28
--- NOTE | 2019-01-08 14:46 | CONS ---
Assessment/Plan Assessment/Plan Hospital Course (Demo Recall) Patient is alert looks comfortable denies pain no fevers overnight. He has Saunders catheter. WBC 15.6 platelets 489 no shift BUN 36 creatinine 1.89 Microbiology: Blood cultures negative since admission Allergy: Penicillin, sulfa Antimicrobials: Meropenem Physical examination: This is well-developed middle-aged white man who is alert in no distress. Head atraumatic normocephalic sclera nonicteric. Neck is supple. Chest rise symmetrical breath sounds clear. Heart: S1-S2. Abdomen obe se soft bowel sounds present. Extremities without cyanosis Assessment: 1. Gram-negative tal bacteremia per report from [facility] 2. Urinary retention status post Saunders 3. Chronic kidney disease 4. Homelessness 5. Polysubstance abuse Plan: Patient remains stable, continue antibiotics, await for final cultures Consultation Date/Type/Reason Admit Date/Time Jan 05, 2019 at 22:58 Initial Consult Date 01/06/19 Type of Consult id Requesting Provider: HOLLY MINER Date/Time of Note DATE: 01/08/19 TIME: 14:46 Exam/Review of Systems Exam Vitals Vital Signs Date Temp Pulse Resp B/P (MAP) Pulse Ox O2 O2 Flow FiO2 Time Delivery Rate 01/08/19 98.4 79 19 118/75 95 12:02 (89) 01/06/19 Room Air 15:12 Intake and Output 01/07/19 01/07/19 01/08/19 1515:00 23:00 07:00 IntakeIntake Total 1250 ml 1750 ml OutputOutput Total 2500 ml 1200 ml BalanceBalance -1250 ml 550 ml Results Result Diagram: 01/08/1921 01/08/19 0521 Results 24hrs Laboratory Tests Test 01/08/19 05:21 White Blood Count 15.6 H Red Blood Count 3.26 L Hemoglobin 8.7 L Hematocrit 26.7 L Mean Corpuscular Volume 81.9 L Mean Corpuscular Hemoglobin 26.7 L Mean Corpuscular Hemoglobin Concent 32.6 Red Cell Distribution Width 13.7 Platelet Count 489 H Mean Platelet Volume 10.2 Immature Granulocytes % 2.900 H Neutrophils % 68.2 Lymphocytes % 16.5 Monocytes % 9.4 Eosinophils % 2.4 Basophils % 0.6 Nucleated Red Blood Cells % 0.0 Immature Granulocytes # 0.460 H Neutrophils # 10.7 H Lymphocytes # 2.6 Monocytes # 1.5 H Eosinophils # 0.4 Basophils # 0.1 Nucleated Red Blood Cells # 0.0 Sodium Level 139 Potassium Level 5.1 Chloride Level 106 Carbon Dioxide Level 25 Anion Gap 8 Blood Urea Nitrogen 36 H Creatinine 1.89 H Est Glomerular Filtrat Rate mL/min 37 L Glucose Level 105 Calcium Level 8.9 Total Bilirubin 0.2 Direct Bilirubin 0.00 Indirect Bilirubin 0.2 Aspartate Amino Transf (AST/SGOT) 17 Alanine Aminotransferase (ALT/SGPT) 25 Alkaline Phosphatase 107 Total Protein 6.5 Albumin 2.8 L Globulin 3.70 H Albumin/Globulin Ratio 0.75 Medications Medication Current Medications Nicotine (Nicoderm 21 Mg/ 24hr) 1 patch DAILY TRANSDERM Last administered on 01/08/19 09:42; Admin Dose 1 PATCH; Start 01/06/19 at 01:00 Acetaminophen (Tylenol Tab) 650 mg Q6H PRN PO MILD PAIN(1-3)OR ELEVATED TEMP; Start 01/06/19 at 01:00 Acetaminophen/ Hydrocodone Bitart ([place] (5/325)) 1 tab Q6H PRN PO MODERATE PAIN LEVEL 4-6 Last administered on 01/08/19 09:54; Admin Dose 1 TAB; Start 01/06/19 at 01:00 Sodium Chloride 1,000 ml @ 100 mls/hr Q10H IV Last administered on 01/08/19 14:37; Admin Dose 100 MLS/HR; Start 01/06/19 at 01:00 Lorazepam (Ativan) 1 mg Q6H PRN IV ANXIETY Last administered on 01/06/19 05:54; Admin Dose 1 MG; Start 01/06/19 at 01:00 Ondansetron HCl (Zofran Inj) 4 mg Q6H PRN IV NAUSEA AND/OR VOMITING; Start 01/06 at 01:00 Ranitidine HCl (Zantac) 150 mg BID PO Last administered on 01/08/19 09:42; Admin Dose 150 MG; Start 01/06/19 at 02:01 Meropenem/Sodium Chloride 50 ml @ 100 mls/hr Q12 IVPB Last administered on 01/08/19 09:43; Admin Dose 100 MLS/HR; Start 01/06/19 at 12:00 Calamine/Pramoxine (Caladryl Lotion) 1 applic Q2H PRN TOP itching; Start 01/08/19 at 11:30 JYOTI CRONIN NP Jan 08, 2019 14:46
--- NOTE | 2019-01-08 20:03 | CONS ---
Consult Date/Type/Reason Admit Date/Time Jan 05, 2019 at 22:58 Initial Consult Date 01/06/19 Type of Consultation: Urology Reason for Consultation Urinary retention and urethral stricture Requesting Provider: HOLLY MINER Date/Time of Note DATE: 01/08/19 TIME: 20:00 Subjective Patient is awake and comfortable, he denies any pain Objective Vitals Vital Signs Date Temp Pulse Resp B/P (MAP) Pulse Ox O2 O2 Flow FiO2 Time Delivery Rate 01/08/19 84 16:00 01/08/19 98.1 18 126/67 99 15:57 (86) 01/06/19 Room Air 15:12 Intake and Output 01/07/19 01/07/19 01/08/19 1515:00 23:00 07:00 IntakeIntake Total 1250 ml 1750 ml OutputOutput Total 2500 ml 1200 ml BalanceBalance -1250 ml 550 ml Exam The Saunders catheter is draining well and clear urine. This catheter is a 10 Cameroonian in size because of the severe stricture that he has. Results/Medications Result Diagram: 01/08/1952001/08/19 0521 Results 24 hrs Laboratory Tests Test 01/08/19 05:21 White Blood Count 15.6 H Red Blood Count 3.26 L Hemoglobin 8.7 L Hematocrit 26.7 L Mean Corpuscular Volume 81.9 L Mean Corpuscular Hemoglobin 26.7 L Mean Corpuscular Hemoglobin Concent 32.6 Red Cell Distribution Width 13.7 Platelet Count 489 H Mean Platelet Volume 10.2 Immature Granulocytes % 2.900 H Neutrophils % 68.2 Lymphocytes % 16.5 Monocytes % 9.4 Eosinophils % 2.4 Basophils % 0.6 Nucleated Red Blood Cells % 0.0 Immature Granulocytes # 0.460 H Neutrophils # 10.7 H Lymphocytes # 2.6 Monocytes # 1.5 H Eosinophils # 0.4 Basophils # 0.1 Nucleated Red Blood Cells # 0.0 Sodium Level 139 Potassium Level 5.1 Chloride Level 106 Carbon Dioxide Level 25 Anion Gap 8 Blood Urea Nitrogen 36 H Creatinine 1.89 H Est Glomerular Filtrat Rate mL/min 37 L Glucose Level 105 Calcium Level 8.9 Total Bilirubin 0.2 Direct Bilirubin 0.00 Indirect Bilirubin 0.2 Aspartate Amino Transf (AST/SGOT) 17 Alanine Aminotransferase (ALT/SGPT) 25 Alkaline Phosphatase 107 Total Protein 6.5 Albumin 2.8 L Globulin 3.70 H Albumin/Globulin Ratio 0.75 Home Meds No Active Prescriptions or Reported Meds Medications Current Medications Nicotine (Nicoderm 21 Mg/ 24hr) 1 patch DAILY TRANSDERM Last administered on 01/08/19 09:42; Admin Dose 1 PATCH; Start 01/06/19 at 01:00 Acetaminophen (Tylenol Tab) 650 mg Q6H PRN PO MILD PAIN(1-3)OR ELEVATED TEMP; Start 01/06/19 at 01:00 Acetaminophen/ Hydrocodone Bitart ([place] (5/325)) 1 tab Q6H PRN PO MODERATE PAIN LEVEL 4-6 Last administered on 01/08/19 09:54; Admin Dose 1 TAB; Start 01/06/19 at 01:00 Sodium Chloride 1,000 ml @ 100 mls/hr Q10H IV Last administered on 01/08/19 14:37; Admin Dose 100 MLS/HR; Start 01/06/19 at 01:00 Lorazepam (Ativan) 1 mg Q6H PRN IV ANXIETY Last administered on 01/06/19 05:54; Admin Dose 1 MG; Start 01/06/19 at 01:00 Ondansetron HCl (Zofran Inj) 4 mg Q6H PRN IV NAUSEA AND/OR VOMITING; Start 01/06/19 at 01:00 Ranitidine HCl (Zantac) 150 mg BID PO Last administered on 01/08/19 09:42; Admin Dose 150 MG; Start 01/06/19 at 02:01 Meropenem/Sodium Chloride 50 ml @ 100 mls/hr Q12 IVPB Last administered on 01/08/19 09:43; Admin Dose 100 MLS/HR; Start 01/06/19 at 12:00 Calamine/Pramoxine (Caladryl Lotion) 1 applic Q2H PRN TOP itching; Start 01/08/19 at 11:30 Clotrimazole (Lotrimin Cr) 1 applic BID TOP ; Start 01/08/19 at 21:00 Assessment/Plan Hospital Course (Demo Recall) 58-year-old male was sent to the emergency room by his primary care physician because of recurrent urinary tract infection that could not be treated as an outpatient as he does have multidrug-resistant organisms and he has multiple allergies to oral antibiotics. Patient is known to have a history of hypospad ias and underwent surgeries for that. That was complicated by urethral strictures. The patient was seen here in 2013 with urinary retention. He was taught to do self-catheterization. After his discharge he did it for 5 days and then he stopped. He states that his housing condition did change and that is the reason why he did not continue to do it. Over time he started having urinary incontinence and wetting himself. He recently also was evicted from his apartment and now is living in his car. He went to the emergency room at [facility] and they were able to insert a 10 Cameroonian Saunders catheter for him and drained over 2 L of urine. Patient was transferred here because of his insurance. Presently the patient is doing better. The Saunders catheter is draining clear urine. I will try to dilate the urethra in a.m. and after that may discontinue the Saunders catheter and have him do self-catheterization every 6 hours. KELSI PARKER MD Jan 08, 2019 20:03
[2019-01-08] MEDS: CLOTRIMAZOLE 1% 30 GM CR TOP SCH (21:52)
[2019-01-09] VITALS (12 sets, daily range): BP systolic 110–139; BP diastolic 63–87; PULSE 67–78; RESP 17–20
[2019-01-09] MEDS: SOD CHLORIDE 0.45% 1,000 ML IV SCH ×3 (05:39→19:00)
[2019-01-09] MEDS: RANITIDINE 150 MG TAB PO SCH ×2 (08:14→21:17)
[2019-01-09] MEDS: CLOTRIMAZOLE 1% 30 GM CR TOP SCH ×2 (08:14→21:17)
[2019-01-09] MEDS: MEROPENEM 1 GM/50ML(PMX) 50 ML IVPB SCH ×2 (08:14→21:17)
[2019-01-09] MEDS: NICOTINE (21 MG/24 HR) PATCH TRANSDERM SCH (08:14)
[2019-01-09] MEDS ORDERED: INSULIN REGULAR, HUMAN 100 UNIT/1 ML 3ML VIAL IVP STA (08:39)
[2019-01-09] MEDS ORDERED: DEXTROSE 50% 50 ML SYRINGE IV PRN (09:00)
--- NOTE | 2019-01-09 12:30 | PN ---
Date/Time of Note Date/Time of Note DATE: 01/09/19 TIME: 12:23 Assessment/Plan VTE Prophylaxis Risk [place] [facility] [place] risk: 3 SCD applied (from [facility] [place] Yes Pharmacological prophylaxis: NA/contraindicated Pharm contraindication: low risk/ambulating Lines/Catheters IV Catheter Type (from [facility]): Peripheral IV Urinary Cath still in place: No Assessment/Plan Assessment/Plan 1. Ecoli bacteremia - Cx results noted from [place] with sensitivities to all but Cipro - ID on board for antibiotic recommendations. - still with elevated WBC but remains afebrile - source most likely UTI 2. Ecoli UTI - Urology consultation appreciated. plans for dilation of urethra and straight catheterizations following removal of jones - antibiotics per ID recommendations - urine remains clear 3. LADAN on CKD - will check renal US - encourage hydration - good urine outpt - continue IVF 4. Homelessness - SW consultation appreciated. Patient still concerned about being discharged with no definite housing plans 5. Urinary retention - jones care - Urology on board 6. Tobacco abuse - cessation counseling offered 7. Disposition - Per Urology, will dilate urethra and d/c jones today - will touch base with ID regarding antibiotic plans for discharge Result Diagram: 01/09/19 0510 01/09/19 0510 Results 24hrs Laboratory Tests Test 01/09/19 05:10 01/09/19 09:59 01/09/19 10:44 White Blood Count 15.3 H Red Blood Count 3.36 L Hemoglobin 8.9 L Hematocrit 28.1 L Mean Corpuscular Volume 83.6 Mean Corpuscular Hemoglobin 26.5 L Mean Corpuscular Hemoglobin Concent 31.7 L Red Cell Distribution Width 13.7 Platelet Count 495 H Mean Platelet Volume 9.9 Immature Granulocytes % 2.900 H Neutrophils % 66.7 Lymphocytes % 17.1 Monocytes % 10.0 Eosinophils % 2.6 Basophils % 0.7 Nucleated Red Blood Cells % 0.0 Immature Granulocytes # 0.440 H Neutrophils # 10.2 H Lymphocytes # 2.6 Monocytes # 1.5 H Eosinophils # 0.4 Basophils # 0.1 Nucleated Red Blood Cells # 0.0 Sodium Level 138 Potassium Level 5.3 H Chloride Level 105 Carbon Dioxide Level 26 Anion Gap 7 Blood Urea Nitrogen 33 H Creatinine 1.97 H Glucose Level 102 Calcium Level 9.1 Phosphorus Level 4.4 Magnesium Level 1.9 Albumin 2.7 L Bedside Glucose 134 234 H Subjective 24 Hr Interval Summary Free Text/Dictation Patient complaining of calf discomfort after walking around unit 5 times yesterday. also with increased fatigue but denies any fevers or chills. Concerned about his housing situation and need to be in clean environment given hx UTI and need for self catheterization Exam/Review of Systems Exam Vitals Vital Signs Date Temp Pulse Resp B/P (MAP) Pulse Ox O2 O2 Flow FiO2 Time Delivery Rate 01/09/19 73 12:06 01/09/19 97.0 17 110/63 97 11:31 (79) 01/06/19 Room Air 15:12 Intake and Output 01/08/19 01/08/19 01/09/19 1515:00 23:00 07:00 IntakeIntake Total 1050 ml 800 ml 1830 ml OutputOutput Total 2800 ml 3800 ml BalanceBalance 1050 ml -2000 ml -1970 ml Exam General: no acute distress. answering questions appropriately Neck: supple CVS: S1, S2, regular rate and rhythm. no murmurs Lungs: clear to auscultation bilaterally. no wheezing or rhonchi Abd: soft, nontender, nondistended. no rebound or guarding. bowel sounds present diffusely : jones in place. clear urine. some mucus noted. no ciara bleeding Skin: warm, dry Results Results 24hrs Laboratory Tests Test 01/09/19 05:10 01/09/19 09:59 01/09/19 10:44 White Blood Count 15.3 H Red Blood Count 3.36 L Hemoglobin 8.9 L Hematocrit 28.1 L Mean Corpuscular Volume 83.6 Mean Corpuscular Hemoglobin 26.5 L Mean Corpuscular Hemoglobin Concent 31.7 L Red Cell Distribution Width 13.7 Platelet Count 495 H Mean Platelet Volume 9.9 Immature Granulocytes % 2.900 H Neutrophils % 66.7 Lymphocytes % 17.1 Monocytes % 10.0 Eosinophils % 2.6 Basophils % 0.7 Nucleated Red Blood Cells % 0.0 Immature Granulocytes # 0.440 H Neutrophils # 10.2 H Lymphocytes # 2.6 Monocytes # 1.5 H Eosinophils # 0.4 Basophils # 0.1 Nucleated Red Blood Cells # 0.0 Sodium Level 138 Potassium Level 5.3 H Chloride Level 105 Carbon Dioxide Level 26 Anion Gap 7 Blood Urea Nitrogen 33 H Creatinine 1.97 H Glucose Level 102 Calcium Level 9.1 Phosphorus Level 4.4 Magnesium Level 1.9 Albumin 2.7 L Bedside Glucose 134 234 H Medications Medication Current Medications Nicotine (Nicoderm 21 Mg/ 24hr) 1 patch DAILY TRANSDERM Last administered on 01/09/19 08:14; Admin Dose 1 PATCH; Start 01/06/19 at 01:00 Acetaminophen (Tylenol Tab) 650 mg Q6H PRN PO MILD PAIN(1-3)OR ELEVATED TEMP; Start 01/06/19 at 01:00 Acetaminophen/ Hydrocodone Bitart ([place] (5/325)) 1 tab Q6H PRN PO MODERATE PAIN LEVEL 4-6 Last administered on 01/08/19 21:53; Admin Dose 1 TAB; Start 01/06/19 at 01:00 Sodium Chloride 1,000 ml @ 100 mls/hr Q10H IV Last administered on 01/09/19 05:39; Admin Dose 100 MLS/HR; Start 01/06/19 at 01:00 Lorazepam (Ativan) 1 mg Q6H PRN IV ANXIETY Last administered on 01/06/19 05:54; Admin Dose 1 MG; Start 01/06/19 at 01:00 Ondansetron HCl (Zofran Inj) 4 mg Q6H PRN IV NAUSEA AND/OR VOMITING; Start 01/06/19 at 01:00 Ranitidine HCl (Zantac) 150 mg BID PO Last administered on 01/09/19 08:14; Admin Dose 150 MG; Start 01/06/19 at 02:01 Meropenem/Sodium Chloride 50 ml @ 100 mls/hr Q12 IVPB Last administered on 01/09/19 08:14; Admin Dose 100 MLS/HR; Start 01/06/19 at 12:00 Calamine/Pramoxine (Caladryl Lotion) 1 applic Q2H PRN TOP itching; Start 01/08/19 at 11:30 Clotrimazole (Lotrimin Cr) 1 applic BID TOP Last administered on 01/09/19 08:14; Admin Dose 1 APPLIC; Start 01/08/19 at 21:00 Dextrose (D50w Syringe) ONCE PRN IV DECREASED GLUCOSE Last administered on 01/09/19 10:19; Admin Dose 50 ML; Start 01/09/19 at 09:00; Stop 01/09/19 at 18:00 MADISON GOODE MD Jan 09, 2019 12:30
--- NOTE | 2019-01-09 14:36 | CONS ---
Assessment/Plan Assessment/Plan Hospital Course (Demo Recall) Patient is alert looks comfortable denies pain no fevers overnight. He has Saunders catheter. Microbiology: Blood cultures negative since admission blood culture from another facility grew E. coli, resistant to Cipro and Levaquin Allergy: Penicillin, sulfa Antimicrobials: Meropenem Physical examination: This is well-developed middle-aged white man who is alert in no distress. Head atraumatic normocephalic sclera nonicteric. Neck is supple. Chest rise symmetrical breath sounds clear. Heart: S1-S2. Abdomen obese soft bowel sounds present. Extremities without cyanosis Assessment: 1. Gram-negative tal bacteremia per report from [facility] 2. Urinary retention status post Saunders 3. Chronic kidney disease 4. Homelessness 5. Polysubstance abuse Plan: Patient remains stable, continue antibiotics, anticipate discharge on IV Invanz 1 g daily for 10 more days, urology recommendations noted Consultation Date/Type/Reason Admit Date/Time Jan 05, 2019 at 22:58 Initial Consult Date 01/06/19 Type of Consult id Requesting Provider: HOLLY MINER Date/Time of Note DATE: 01/09/19 TIME: 14:34 Exam/Review of Systems Exam Vitals Vital Signs Date Temp Pulse Resp B/P (MAP) Pulse Ox O2 O2 Flow FiO2 Time Delivery Rate 01/09/19 73 12:06 01/09/19 97.0 17 110/63 97 11:31 (79) 01/06/19 Room Air 15:12 Intake and Output 01/08/19 01/08/19 01/09/19 1515:00 23:00 07:00 IntakeIntake Total 1050 ml 800 ml 1830 ml OutputOutput Total 2800 ml 3800 ml BalanceBalance 1050 ml -2000 ml -1970 ml Results Result Diagram: 01/09/19 0510 01/09/19 0510 Results 24hrs Laboratory Tests Test 01/09/19 05:10 01/09/19 09:59 01/09/19 10:44 White Blood Count 15.3 H Red Blood Count 3.36 L Hemoglobin 8.9 L Hematocrit 28.1 L Mean Corpuscular Volume 83.6 Mean Corpuscular Hemoglobin 26.5 L Mean Corpuscular Hemoglobin Concent 31.7 L Red Cell Distribution Width 13.7 Platelet Count 495 H Mean Platelet Volume 9.9 Immature Granulocytes % 2.900 H Neutrophils % 66.7 Lymphocytes % 17.1 Monocytes % 10.0 Eosinophils % 2.6 Basophils % 0.7 Nucleated Red Blood Cells % 0.0 Immature Granulocytes # 0.440 H Neutrophils # 10.2 H Lymphocytes # 2.6 Monocytes # 1.5 H Eosinophils # 0.4 Basophils # 0.1 Nucleated Red Blood Cells # 0.0 Sodium Level 138 Potassium Level 5.3 H Chloride Level 105 Carbon Dioxide Level 26 Anion Gap 7 Blood Urea Nitrogen 33 H Creatinine 1.97 H Glucose Level 102 Calcium Level 9.1 Phosphorus Level 4.4 Magnesium Level 1.9 Albumin 2.7 L Bedside Glucose 134 234 H Medications Medication Current Medications Nicotine (Nicoderm 21 Mg/ 24hr) 1 patch DAILY TRANSDERM Last administered on 01/09/19 08:14; Admin Dose 1 PATCH; Start 01/06/19 at 01:00 Acetaminophen (Tylenol Tab) 650 mg Q6H PRN PO MILD PAIN(1-3)OR ELEVATED TEMP; Start 01/06/19 at 01:00 Acetaminophen/ Hydrocodone Bitart ([place] (5/325)) 1 tab Q6H PRN PO MODERATE PAIN LEVEL 4-6 Last administered on 01/08/19 21:53; Admin Dose 1 TAB; Start 01/06/19 at 01:00 Sodium Chloride 1,000 ml @ 100 mls/hr Q10H IV Last administered on 01/09/19 05:39; Admin Dose 100 MLS/HR; Start 01/06/19 at 01:00 Lorazepam (Ativan) 1 mg Q6H PRN IV ANXIETY Last administered on 01/06/19 05:54; Admin Dose 1 MG; Start 01/06/19 at 01:00 Ondansetron HCl (Zofran Inj) 4 mg Q6H PRN IV NAUSEA AND/OR VOMITING; Start 01/06/19 at 01:00 Ranitidine HCl (Zantac) 150 mg BID PO Last administered on 01/09/19 08:14; Admin Dose 150 MG; Start 01/06/19 at 02:01 Meropenem/Sodium Chloride 50 ml @ 100 mls/hr Q12 IVPB Last administered on 01/09/19 08:14; Admin Dose 100 MLS/HR; Start 01/06/19 at 12:00 Calamine/Pramoxine (Caladryl Lotion) 1 applic Q2H PRN TOP itching; Start 01/08/19 at 11:30 Clotrimazole (Lotrimin Cr) 1 applic BID TOP Last administered on 01/09/19at 08:14; Admin Dose 1 APPLIC; Start 01/08/19 at 21:00 Dextrose (D50w Syringe) ONCE PRN IV DECREASED GLUCOSE Last administered on 01/09/19at 10:19; Admin Dose 50 ML; Start 01/09/19 at 09:00; Stop 01/09/19 at 18:00 JYOTI CRONIN NP Jan 09, 2019 14:36
--- NOTE | 2019-01-09 17:11 | CONS ---
Consult Date/Type/Reason Admit Date/Time Jan 05, 2019 at 22:58 Initial Consult Date 01/06/19 Type of Consultation: Urology Reason for Consultation Urinary retention, urethral strictures and urinary tract infection Requesting Provider: HOLLY MINER Date/Time of Note DATE: 01/09/19 TIME: 17:09 Subjective Patient was anxious but looking forward to have the catheter removed and starting his own self-catheterization Objective Vitals Vital Signs Date Temp Pulse Resp B/P (MAP) Pulse Ox O2 O2 Flow FiO2 Time Delivery Rate 01/09/19 78 16:08 01/09/19 97.9 19 133/87 98 15:40 (102) 01/06/19 Room Air 15:12 Intake and Output 01/08/19 01/08/19 01/09/19 1515:00 23:00 07:00 IntakeIntake Total 1050 ml 800 ml 1830 ml OutputOutput Total 2800 ml 3800 ml BalanceBalance 1050 ml -2000 ml -1970 ml Exam Abdomen is soft. The 10 English Saunders catheter that he had was draining clear urine Results/Medications Result Diagram: 01/09/19 0510 01/09/19 0510 Results 24 hrs Laboratory Tests Test 01/09/19 05:10 01/09/19 09:59 01/09/19 10:44 White Blood Count 15.3 H Red Blood Count 3.36 L Hemoglobin 8.9 L Hematocrit 28.1 L Mean Corpuscular Volume 83.6 Mean Corpuscular Hemoglobin 26.5 L Mean Corpuscular Hemoglobin Concent 31.7 L Red Cell Distribution Width 13.7 Platelet Count 495 H Mean Platelet Volume 9.9 Immature Granulocytes % 2.900 H Neutrophils % 66.7 Lymphocytes % 17.1 Monocytes % 10.0 Eosinophils % 2.6 Basophils % 0.7 Nucleated Red Blood Cells % 0.0 Immature Granulocytes # 0.440 H Neutrophils # 10.2 H Lymphocytes # 2.6 Monocytes # 1.5 H Eosinophils # 0.4 Basophils # 0.1 Nucleated Red Blood Cells # 0.0 Sodium Level 138 Potassium Level 5.3 H Chloride Level 105 Carbon Dioxide Level 26 Anion Gap 7 Blood Urea Nitrogen 33 H Creatinine 1.97 H Glucose Level 102 Calcium Level 9.1 Phosphorus Level 4.4 Magnesium Level 1.9 Albumin 2.7 L Bedside Glucose 134 234 H Home Meds No Active Prescriptions or Reported Meds Medications Current Medications Nicotine (Nicoderm 21 Mg/ 24hr) 1 patch DAILY TRANSDERM Last administered on 01/09/19 08:14; Admin Dose 1 PATCH; Start 01/06/19 at 01:00 Acetaminophen (Tylenol Tab) 650 mg Q6H PRN PO MILD PAIN(1-3)OR ELEVATED TEMP; Start 01/06/19 at 01:00 Acetaminophen/ Hydrocodone Bitart ([place] (5/325)) 1 tab Q6H PRN PO MODERATE PAIN LEVEL 4-6 Last administered on 01/08/19 21:53; Admin Dose 1 TAB; Start 01/06/19 at 01:00 Sodium Chloride 1,000 ml @ 100 mls/hr Q10H IV Last administered on 01/09/19 16:59; Admin Dose 100 MLS/HR; Start 01/06/19 at 01:00 Lorazepam (Ativan) 1 mg Q6H PRN IV ANXIETY Last administered on 01/06/19 05:54; Admin Dose 1 MG; Start 01/06/19 at 01:00 Ondansetron HCl (Zofran Inj) 4 mg Q6H PRN IV NAUSEA AND/OR VOMITING; Start 01/06/19 at 01:00 Ranitidine HCl (Zantac) 150 mg BID PO Last administered on 01/09/19 08:14; Admin Dose 150 MG; Start 01/06/19 at 02:01 Meropenem/Sodium Chloride 50 ml @ 100 mls/hr Q12 IVPB Last administered on 01/09/19 08:14; Admin Dose 100 MLS/HR; Start 01/06/19 at 12:00 Calamine/Pramoxine (Caladryl Lotion) 1 applic Q2H PRN TOP itching; Start 01/08/19 at 11:30 Clotrimazole (Lotrimin Cr) 1 applic BID TOP Last administered on 01/09/19 08:14; Admin Dose 1 APPLIC; Start 01/08/19 at 21:00 Dextrose (D50w Syringe) ONCE PRN IV DECREASED GLUCOSE Last administered on 01/09/19 10:19; Admin Dose 50 ML; Start 01/09/19 at 09:00; Stop 01/09/19 at 18:00 Assessment/Plan Hospital Course (Demo Recall) 58-year-old male was sent to the emergency room by his primary care physician because of recurrent urinary tract infection that could not be treated as an outpatient as he does have multidrug-resistant organisms and he has multiple allergies to oral antibiotics. Patient is known to have a history of hypospadias and underwent surgeries for that. That was complicated by urethral strictures. The patient was seen here in 2013 with urinary retention. He was taught to do self-catheterization. After his discharge he did it for 5 days and then he stopped. He states that his housing condition did change and that is the reason why he did not continue to do it. Over time he started having urinary incontinence and wetting himself. He recently also was evicted from his apartment and now is living in his car. He went to the emergency room at [place] and they were able to insert a 10 English Saunders catheter for him and drained over 2 L of urine. Patient was transferred here because of his insurance. Presently the patient is doing better. I did remove the old 10 English Saunders catheter and then prepped the genital area and gave him 2% lidocaine jelly in the urethra for local anesthesia. Then I inserted a 14 English coud catheter at that went into the bladder without any problem. I did hand irrigated and it irrigates well. I will keep it overnight and then discontinue the Saunders catheter at 6 AM and have the patient start doing in and out catheterization every 6 hours. KELSI PARKER MD Jan 09, 2019 17:11
[2019-01-09] MEDS: LORAZEPAM 2 MG INJ IV PRN (22:30)
[2019-01-10] VITALS (12 sets, daily range): BP systolic 98–128; BP diastolic 63–79; PULSE 65–93; RESP 18–20
[2019-01-10] MEDS: SOD CHLORIDE 0.45% 1,000 ML IV SCH ×3 (05:22→21:44)
[2019-01-10] MEDS: MEROPENEM 1 GM/50ML(PMX) 50 ML IVPB SCH ×2 (08:07→21:44)
[2019-01-10] MEDS: RANITIDINE 150 MG TAB PO SCH ×2 (08:07→22:23)
[2019-01-10] MEDS: CLOTRIMAZOLE 1% 30 GM CR TOP SCH ×2 (08:07→21:00)
[2019-01-10] MEDS: NICOTINE (21 MG/24 HR) PATCH TRANSDERM SCH (08:07)
[2019-01-10] MEDS ORDERED: NICOTINE POLACRILEX 4 MG GUM BUCCAL PRN (10:30)
[2019-01-10] MEDS ORDERED: NICOTINE POLACRILEX 2 MG GUM BUCCAL PRN (11:00)
--- NOTE | 2019-01-10 13:55 | PN ---
Date/Time of Note Date/Time of Note DATE: 01/10/19 TIME: 13:52 Assessment/Plan VTE Prophylaxis Risk [place] ([place] [facility] [place]0 risk: 2 SCD applied (from [facility] [place] No SCD contraindicated: low risk/ambulating Pharmacological prophylaxis: NA/contraindicated Pharm contraindication: low risk/ambulating Lines/Catheters IV Catheter Type (from [facility]): Peripheral IV Urinary Cath still in place: No Assessment/Plan Assessment/Plan 1. Ecoli bacteremia - ID on board and appreciate recommendations. Will need Invanz until 01/19 to complete 2 week course - Cx results noted from [place] with sensitivities to all but Cipro - source most likely UTI 2. Ecoli UTI - Urology consultation appreciated. jones removed and patient taught how to self catheterization - antibiotics per ID recommendations - urine remains clear 3. LADAN on CKD- improving - US noted with medical disease as well as b/l hydro - encourage hydration - good urine outpt 4. Homelessness - consultation appreciated. Patient still concerned about being discharged with no definite housing plans 5. Urinary retention - Urology on board. patient taught to self cath 6. Tobacco abuse - cessation counseling offered 7. Disposition - CM on board for placement given need for IV antibiotics for 2 weeks Result Diagram: 01/10/19 0522 01/10/19 0522 Results 24hrs Laboratory Tests Test 01/10/19 05:22 White Blood Count 15.8 H Red Blood Count 3.50 L Hemoglobin 9.3 L Hematocrit 29.1 L Mean Corpuscular Volume 83.1 Mean Corpuscular Hemoglobin 26.6 L Mean Corpuscular Hemoglobin Concent 32.0 Red Cell Distribution Width 13.8 Platelet Count 502 H Mean Platelet Volume 10.0 Immature Granulocytes % 3.200 H Neutrophils % 65.8 Lymphocytes % 19.2 Monocytes % 8.8 Eosinophils % 2.3 Basophils % 0.7 Nucleated Red Blood Cells % 0.0 Immature Granulocytes # 0.510 H Neutrophils # 10.4 H Lymphocytes # 3.0 H Monocytes # 1.4 H Eosinophils # 0.4 Basophils # 0.1 Nucleated Red Blood Cells # 0.0 Sodium Level 138 Potassium Level 4.7 Chloride Level 106 Carbon Dioxide Level 25 Anion Gap 7 Blood Urea Nitrogen 35 H Creatinine 1.82 H Glucose Level 116 Calcium Level 9.4 Phosphorus Level 4.1 Magnesium Level 2.0 Albumin 3.1 L Subjective 24 Hr Interval Summary Free Text/Dictation Patient denies any acute issues. Still complaining of feeling clammy but no fevers appreciated. Exam/Review of Systems Exam Vitals Vital Signs Date Temp Pulse Resp B/P (MAP) Pulse Ox O2 O2 Flow FiO2 Time Delivery Rate 01/10/19 73 12:00 01/10/19 98.1 20 98/63 (75) 98 Room Air 11:50 Intake and Output 01/09/19 01/09/19 01/10/19 1515:00 23:00 07:00 IntakeIntake Total 50 ml 730 ml 1000 ml OutputOutput Total 1900 ml BalanceBalance 50 ml -1170 ml 1000 ml Exam General: no acute distress. answering questions appropriately Neck: supple CVS: S1, S2, regular rate and rhythm. no murmurs Lungs: clear to auscultation bilaterally. no wheezing or rhonchi Abd: soft, nontender, nondistended. no rebound or guarding. bowel sounds present diffusely Ext: moving all extremities. no edema appreciated Skin: warm, dry Results Results 24hrs Laboratory Tests Test 01/10/19 05:22 White Blood Count 15.8 H Red Blood Count 3.50 L Hemoglobin 9.3 L Hematocrit 29.1 L Mean Corpuscular Volume 83.1 Mean Corpuscular Hemoglobin 26.6 L Mean Corpuscular Hemoglobin Concent 32.0 Red Cell Distribution Width 13.8 Platelet Count 502 H Mean Platelet Volume 10.0 Immature Granulocytes % 3.200 H Neutrophils % 65.8 Lymphocytes % 19.2 Monocytes % 8.8 Eosinophils % 2.3 Basophils % 0.7 Nucleated Red Blood Cells % 0.0 Immature Granulocytes # 0.510 H Neutrophils # 10.4 H Lymphocytes # 3.0 H Monocytes # 1.4 H Eosinophils # 0.4 Basophils # 0.1 Nucleated Red Blood Cells # 0.0 Sodium Level 138 Potassium Level 4.7 Chloride Level 106 Carbon Dioxide Level 25 Anion Gap 7 Blood Urea Nitrogen 35 H Creatinine 1.82 H Glucose Level 116 Calcium Level 9.4 Phosphorus Level 4.1 Magnesium Level 2.0 Albumin 3.1 L Medications Medication Current Medications Nicotine (Nicoderm 21 Mg/ 24hr) 1 patch DAILY TRANSDERM Last administered on 01/10/19at 08:07; Admin Dose 1 PATCH; Start 01/06/19 at 01:00 Acetaminophen (Tylenol Tab) 650 mg Q6H PRN PO MILD PAIN(1-3)OR ELEVATED TEMP; Start 01/06/19 at 01:00 Acetaminophen/ Hydrocodone Bitart ([place] (5/325)) 1 tab Q6H PRN PO MODERATE PAIN LEVEL 4-6 Last administered on 01/08/19 21:53; Admin Dose 1 TAB; Start 01/06/19 at 01:00 Sodium Chloride 1,000 ml @ 100 mls/hr Q10H IV Last administered on 01/10/19 05:22; Admin Dose 100 MLS/HR; Start 01/06/19 at 01:00 Lorazepam (Ativan) 1 mg Q6H PRN IV ANXIETY Last administered on 01/09/19 22:30; Admin Dose 1 MG; Start 01/06/19 at 01:00 Ondansetron HCl (Zofran Inj) 4 mg Q6H PRN IV NAUSEA AND/OR VOMITING; Start 01/06/19 at 01:00 Ranitidine HCl (Zantac) 150 mg BID PO Last administered on 01/10/19 08:07; Admin Dose 150 MG; Start 01/06/19 at 02:01 Meropenem/Sodium Chloride 50 ml @ 100 mls/hr Q12 IVPB Last administered on 01/10/19 08:07; Admin Dose 100 MLS/HR; Start 01/06/19 at 12:00 Calamine/Pramoxine (Caladryl Lotion) 1 applic Q2H PRN TOP itching; Start 01/08/19 at 11:30 Clotrimazole (Lotrimin Cr) 1 applic BID TOP Last administered on 01/09/19 21:17; Admin Dose 1 APPLIC; Start 01/08/19 at 21:00 Nicotine Polacrilex (Nicorette) 4 mg Q2H PRN BUCCAL cravings; Start 01/10/19 at 11:00 MADISON GOODE MD Jan 10, 2019 13:55
--- NOTE | 2019-01-10 14:21 | CONS ---
Assessment/Plan Assessment/Plan Hospital Course (Demo Recall) Is alert feels good status post Saunders catheter discontinued by urology no fevers overnight Microbiology: Blood cultures negative since admission blood culture from another facility grew E. coli, resistant to Cipro and Levaquin Allergy: Penicillin, sulfa Antimicrobials: Meropenem Physical examination: This is well-developed middle-aged white man who is alert in no distress. Head atraumatic normocephalic sclera nonicteric. Neck is supple. Chest rise symmetrical breath sounds clear. Heart: S1-S2. Abdomen obese soft bowel sounds present. Extremities without cyanosis Assessment: 1. Gram-negative tal bacteremia per report from [facility] 2. Urinary retention status post Saunders 3. Chronic kidney disease 4. Homelessness 5. Polysubstance abuse Plan: Patient remains stable, anticipate discharge on IV Invanz 1 g daily for 9 more days, urology recommendations noted plan for self-catheterization Consultation Date/Type/Reason Admit Date/Time Jan 05, 2019 at 22:58 Initial Consult Date 01/06/19 Type of Consult id Requesting Provider: HOLLY MINER Date/Time of Note DATE: 01/10/19 TIME: 14:20 Exam/Review of Systems Exam Vitals Vital Signs Date Temp Pulse Resp B/P (MAP) Pulse Ox O2 O2 Flow FiO2 Time Delivery Rate 01/10/19 73 12:00 01/10/19 98.1 20 98/63 (75) 98 Room Air 11:50 Intake and Output 01/09/19 01/09/19 01/10/19 1515:00 23:00 07:00 IntakeIntake Total 50 ml 730 ml 1000 ml OutputOutput Total 1900 ml BalanceBalance 50 ml -1170 ml 1000 ml Results Result Diagram: 01/10/1952101/10/19521 Results 24hrs Laboratory Tests Test 01/10/19 05:22 White Blood Count 15.8 H Red Blood Count 3.50 L Hemoglobin 9.3 L Hematocrit 29.1 L Mean Corpuscular Volume 83.1 Mean Corpuscular Hemoglobin 26.6 L Mean Corpuscular Hemoglobin Concent 32.0 Red Cell Distribution Width 13.8 Platelet Count 502 H Mean Platelet Volume 10.0 Immature Granulocytes % 3.200 H Neutrophils % 65.8 Lymphocytes % 19.2 Monocytes % 8.8 Eosinophils % 2.3 Basophils % 0.7 Nucleated Red Blood Cells % 0.0 Immature Granulocytes # 0.510 H Neutrophils # 10.4 H Lymphocytes # 3.0 H Monocytes # 1.4 H Eosinophils # 0.4 Basophils # 0.1 Nucleated Red Blood Cells # 0.0 Sodium Level 138 Potassium Level 4.7 Chloride Level 106 Carbon Dioxide Level 25 Anion Gap 7 Blood Urea Nitrogen 35 H Creatinine 1.82 H Glucose Level 116 Calcium Level 9.4 Phosphorus Level 4.1 Magnesium Level 2.0 Albumin 3.1 L Medications Medication Current Medications Nicotine (Nicoderm 21 Mg/ 24hr) 1 patch DAILY TRANSDERM Last administered on 01/10/19 08:07; Admin Dose 1 PATCH; Start 01/06/19 at 01:00 Acetaminophen (Tylenol Tab) 650 mg Q6H PRN PO MILD PAIN(1-3)OR ELEVATED TEMP; Start 01/06/19 at 01:00 Acetaminophen/ Hydrocodone Bitart ([place] (5/325)) 1 tab Q6H PRN PO MODERATE PAIN LEVEL 4-6 Last administered on 01/08/19 21:53; Admin Dose 1 TAB; Start 01/06/19 at 01:00 Sodium Chloride 1,000 ml @ 100 mls/hr Q10H IV Last administered on 01/10/19 05:22; Admin Dose 100 MLS/HR; Start 01/06/19 at 01:00 Lorazepam (Ativan) 1 mg Q6H PRN IV ANXIETY Last administered on 01/09/19 22:30; Admin Dose 1 MG; Start 01/06/19 at 01:00 Ondansetron HCl (Zofran Inj) 4 mg Q6H PRN IV NAUSEA AND/OR VOMITING; Start 01/06/19 at 01:00 Ranitidine HCl (Zantac) 150 mg BID PO Last administered on 01/10/19 08:07; Admin Dose 150 MG; Start 01/06/19 at 02:01 Meropenem/Sodium Chloride 50 ml @ 100 mls/hr Q12 IVPB Last administered on 01/10/19 08:07; Admin Dose 100 MLS/HR; Start 01/06/19 at 12:00 Calamine/Pramoxine (Caladryl Lotion) 1 applic Q2H PRN TOP itching; Start 01/08/19 at 11:30 Clotrimazole (Lotrimin Cr) 1 applic BID TOP Last administered on 01/09/19at 21:17; Admin Dose 1 APPLIC; Start 01/08/19 at 21:00 Nicotine Polacrilex (Nicorette) 4 mg Q2H PRN BUCCAL cravings; Start 01/10/19 at 11:00 JYOTI CRONIN NP Jan 10, 2019 14:21
--- NOTE | 2019-01-10 19:24 | CONS ---
Consult Date/Type/Reason Admit Date/Time Jan 05, 2019 at 22:58 Initial Consult Date 01/06/19 Type of Consultation: Urology Reason for Consultation Urinary retention Requesting Provider: HOLLY MINER Date/Time of Note DATE: 01/10/19 TIME: 19:21 Subjective The patient is feeling comfortable and he attempted to catheterize himself earlier but needed some help from the nurse. He will be trying again tonight. Objective Vitals Vital Signs Date Temp Pulse Resp B/P (MAP) Pulse Ox O2 O2 Flow FiO2 Time Delivery Rate 01/10/19 97.9 82 18 116/68 99 Room Air 17:46 (84) Intake and Output 01/09/19 01/09/19 01/10/19 1515:00 23:00 07:00 IntakeIntake Total 50 ml 730 ml 1000 ml OutputOutput Total 1900 ml BalanceBalance 50 ml -1170 ml 1000 ml Exam Abdomen is soft and there is no tenderness. Results/Medications Result Diagram: 01/10/1922 01/10/19 0522 Results 24 hrs Laboratory Tests Test 01/10/19 05:22 White Blood Count 15.8 H Red Blood Count 3.50 L Hemoglobin 9.3 L Hematocrit 29.1 L Mean Corpuscular Volume 83.1 Mean Corpuscular Hemoglobin 26.6 L Mean Corpuscular Hemoglobin Concent 32.0 Red Cell Distribution Width 13.8 Platelet Count 502 H Mean Platelet Volume 10.0 Immature Granulocytes % 3.200 H Neutrophils % 65.8 Lymphocytes % 19.2 Monocytes % 8.8 Eosinophils % 2.3 Basophils % 0.7 Nucleated Red Blood Cells % 0.0 Immature Granulocytes # 0.510 H Neutrophils # 10.4 H Lymphocytes # 3.0 H Monocytes # 1.4 H Eosinophils # 0.4 Basophils # 0.1 Nucleated Red Blood Cells # 0.0 Sodium Level 138 Potassium Level 4.7 Chloride Level 106 Carbon Dioxide Level 25 Anion Gap 7 Blood Urea Nitrogen 35 H Creatinine 1.82 H Glucose Level 116 Calcium Level 9.4 Phosphorus Level 4.1 Magnesium Level 2.0 Albumin 3.1 L Home Meds No Active Prescriptions or Reported Meds Medications Current Medications Nicotine (Nicoderm 21 Mg/ 24hr) 1 patch DAILY TRANSDERM Last administered on 01/10/19at 08:07; Admin Dose 1 PATCH; Start 01/06/19 at 01:00 Acetaminophen (Tylenol Tab) 650 mg Q6H PRN PO MILD PAIN(1-3)OR ELEVATED TEMP; Start 01/06/19 at 01:00 Acetaminophen/ Hydrocodone Bitart ([place] (5/325)) 1 tab Q6H PRN PO MODERATE PAIN LEVEL 4-6 Last administered on 01/08/19at 21:53; Admin Dose 1 TAB; Start 01/06/19 at 01:00 Lorazepam (Ativan) 1 mg Q6H PRN IV ANXIETY Last administered on 01/09/19at 22:30; Admin Dose 1 MG; Start 01/06/19 at 01:00 Ondansetron HCl (Zofran Inj) 4 mg Q6H PRN IV NAUSEA AND/OR VOMITING; Start 01/06/19 at 01:00 Ranitidine HCl (Zantac) 150 mg BID PO Last administered on 01/10/19at 08:07; Admin Dose 150 MG; Start 01/06/19 at 02:01 Meropenem/Sodium Chloride 50 ml @ 100 mls/hr Q12 IVPB Last administered on 01/10/19at 08:07; Admin Dose 100 MLS/HR; Start 01/06/19 at 12:00 Calamine/Pramoxine (Caladryl Lotion) 1 applic Q2H PRN TOP itching; Start 01/08 at 11:30 Clotrimazole (Lotrimin Cr) 1 applic BID TOP Last administered on 01/09/19at 21:17; Admin Dose 1 APPLIC; Start 01/08/19 at 21:00 Nicotine Polacrilex (Nicorette) 4 mg Q2H PRN BUCCAL cravings; Start 01/10/19 at 11:00 Sodium Chloride 1,000 ml @ 100 mls/hr Q10H IV ; Start 01/10/19 at 16:00 Assessment/Plan Hospital Course (Demo Recall) 58-year-old male was sent to the emergency room by his primary care physician because of recurrent urinary tract infection that could not be treated as an outpatient as he does have multidrug-resistant organisms and he has multiple allergies to oral antibiotics. Patient is known to have a history of hypospadias and underwent surgeries for that. That was complicated by urethral strictures. The patient was seen here in 2013 with urinary retention. He was taught to do self-catheterization. After his discharge he did it for 5 days and then he stopped. He states that his housing condition did change and that is the reason why he did not continue to do it. Over time he started having urinary incontinence and wetting himself. He recently also was evicted from his apartment and now is living in his car. He went to the emergency room at [place] and they were able to insert a 10 [place] Saunders catheter for him and drained over 2 L of urine. Patient was transferred here because of his insurance. Presently the patient is doing better. The 14 [place]i Saunders catheter was removed this morning and the patient states that he did void but small amount and he was catheterized once at noon and is going to be catheterized again now. KELSI PARKER MD Jan 10, 2019 19:24
[2019-01-10] MEDS: LORAZEPAM 2 MG INJ IV PRN (22:26)
[2019-01-11 02:35] VITALS: BP 108/58; PULSE 83; RESP 16
[2019-01-11 07:47] VITALS: BP 113/68; PULSE 67; RESP 18
[2019-01-11] MEDS: CLOTRIMAZOLE 1% 30 GM CR TOP SCH ×2 (08:13→21:28)
[2019-01-11] MEDS: RANITIDINE 150 MG TAB PO SCH ×2 (08:14→21:28)
[2019-01-11] MEDS: MEROPENEM 1 GM/50ML(PMX) 50 ML IVPB SCH ×2 (08:14→21:28)
[2019-01-11] MEDS: NICOTINE (21 MG/24 HR) PATCH TRANSDERM SCH (08:19)
--- NOTE | 2019-01-11 08:22 | CONS ---
Consult Date/Type/Reason Admit Date/Time Jan 05, 2019 at 22:58 Initial Consult Date 01/06/19 Type of Consultation: Urology Reason for Consultation Urinary retention Requesting Provider: HOLLY MINER Date/Time of Note DATE: 01/11/19 TIME: 08:18 Subjective Patient is comfortable. He tried to do the self-catheterization but had difficulty. Objective Vitals Vital Signs Date Temp Pulse Resp B/P (MAP) Pulse Ox O2 O2 Flow FiO2 Time Delivery Rate 01/11/19 98.0 67 18 113/68 96 07:47 (83) 01/10/19 Room Air 19:43 Intake and Output 01/10/19 01/10/19 01/11/19 1515:00 23:00 07:00 IntakeIntake Total 750 ml 850 ml OutputOutput Total 700 ml 1360 ml BalanceBalance 50 ml 850 ml -1360 ml Exam Bladder is full and distended. But he has no pain. Indicating chronic urinary retention Results/Medications Result Diagram: 01/10/1952101/10/19521 Home Meds No Active Prescriptions or Reported Meds Medications Current Medications Nicotine (Nicoderm 21 Mg/ 24hr) 1 patch DAILY TRANSDERM Last administered on 01/10/19at 08:07; Admin Dose 1 PATCH; Start 01/06/19 at 01:00 Acetaminophen (Tylenol Tab) 650 mg Q6H PRN PO MILD PAIN(1-3)OR ELEVATED TEMP; Start 01/06/19 at 01:00 Acetaminophen/ Hydrocodone Bitart ([place] (5/325)) 1 tab Q6H PRN PO MODERATE PAIN LEVEL 4-6 Last administered on 01/08/19at 21:53; Admin Dose 1 TAB; Start 01/06/19 at 01:00 Lorazepam (Ativan) 1 mg Q6H PRN IV ANXIETY Last administered on 01/10/19at 22:26; Admin Dose 1 MG; Start 01/06/19 at 01:00 Ondansetron HCl (Zofran Inj) 4 mg Q6H PRN IV NAUSEA AND/OR VOMITING; Start 01/06/19 at 01:00 Ranitidine HCl (Zantac) 150 mg BID PO Last administered on 01/10/19at 22:23; Admin Dose 150 MG; Start 01/06/19 at 02:01 Meropenem/Sodium Chloride 50 ml @ 100 mls/hr Q12 IVPB Last administered on 01/10/19at 21:44; Admin Dose 100 MLS/HR; Start 01/06/19 at 12:00 Calamine/Pramoxine (Caladryl Lotion) 1 applic Q2H PRN TOP itching; Start 01/08/19 at 11:30 Clotrimazole (Lotrimin Cr) 1 applic BID TOP Last administered on 01/09/19at 21:17; Admin Dose 1 APPLIC; Start 01/08/19 at 21:00 Nicotine Polacrilex (Nicorette) 4 mg Q2H PRN BUCCAL cravings; Start 01/10/19 at 11:00 Sodium Chloride 1,000 ml @ 100 mls/hr Q10H IV Last administered on 01/10/19 21:44; Admin Dose 100 MLS/HR; Start 01/10/19 at 16:00 Assessment/Plan Hospital Course (Demo Recall) 58-year-old male was sent to the emergency room by his primary care physician because of recurrent urinary tract infection that could not be treated as an outpatient as he does have multidrug-resistant organisms and he has multiple allergies to oral antibiotics. Patient is known to have a history of hypospadias and underwent surgeries for that. That was complicated by urethral strictures. The patient was seen here in 2013 with urinary retention. He was taught to do self-catheterization. After his discharge he did it for 5 days and then he stopped. He states that his housing condition did change and that is the reason why he did not continue to do it. Over time he started having urinary incontinence and wetting himself. He recently also was evicted from his apartment and now is living in his car. He went to the emergency room at [place] and they were able to insert a 10 Latvian Saunders catheter for him and drained over 2 L of urine. Patient was transferred here because of his insurance. Presently the patient is doing better. The 14 Latvian Saunders catheter was removed on 01/10/2019. The patient has been started on and out catheterization every 6 hours. The nurses are trying to help him learn how to do it. He had some difficulty last night and the nurse did the catheterization and drained 900 mL. I had him try this morning with me watching him he was able to pass the catheter and once the catheter reached the area of the sphincter he was not able to push it further but I helped him and pushed it in for him and 800 mL of urine drained out. We have to continue to do the end and out cath on him and continue to teach him. We have to try to get him a more simple type of tray. KELSI PARKER MD Jan 11, 2019 08:22
--- NOTE | 2019-01-11 11:37 | CONS ---
Assessment/Plan Assessment/Plan Hospital Course (Demo Recall) All noted, no acute changes Microbiology: Blood cultures negative since admission blood culture from another facility grew E. coli, resistant to Cipro and Levaquin Allergy: Penicillin, sulfa Antimicrobials: Meropenem Physical examination: This is well-developed middle-aged white man who is alert in no distress. Head atraumatic normocephalic sclera nonicteric. Neck is supple. Chest rise symmetrical breath sounds clear. Heart: S1-S2. Abdomen obese soft bowel sounds present. Extremities without cyanosis Assessment: 1. E coli bacteremia per report from [facility] 2. Urinary retention status post Saunders dc'd 3. Chronic kidney disease 4. Homelessness 5. Polysubstance abuse 6. COPD Plan: Patient remains stable, continue abx for 8 more days, continue straight cath, repeat urine cx, f/u urology recommendations Consultation Date/Type/Reason Admit Date/Time Jan 05, 2019 at 22:58 Initial Consult Date 01/06/19 Type of Consult id Requesting Provider: HOLLY MINER Date/Time of Note DATE: 01/11/19 TIME: 11:31 Exam/Review of Systems Exam Vitals Vital Signs Date Temp Pulse Resp B/P (MAP) Pulse Ox O2 O2 Flow FiO2 Time Delivery Rate 01/11/19 98.0 67 18 113/68 96 07:47 (83) 01/10/19 Room Air 19:43 Intake and Output 01/10/19 01/10/19 01/11/19 1515:00 23:00 07:00 IntakeIntake Total 750 ml 850 ml OutputOutput Total 700 ml 1360 ml BalanceBalance 50 ml 850 ml -1360 ml Results Result Diagram: 01/11/19 0724 01/11/19 0724 Results 24hrs Laboratory Tests Test 01/11/19 07:24 White Blood Count 16.6 H Red Blood Count 3.55 L Hemoglobin 9.5 L Hematocrit 29.3 L Mean Corpuscular Volume 82.5 Mean Corpuscular Hemoglobin 26.8 L Mean Corpuscular Hemoglobin Concent 32.4 Red Cell Distribution Width 14.2 Platelet Count 464 H Mean Platelet Volume 10.1 Immature Granulocytes % 2.700 H Neutrophils % 65.4 Lymphocytes % 19.3 Monocytes % 10.2 Eosinophils % 1.6 Basophils % 0.8 Nucleated Red Blood Cells % 0.0 Immature Granulocytes # 0.450 H Neutrophils # 10.9 H Lymphocytes # 3.2 H Monocytes # 1.7 H Eosinophils # 0.3 Basophils # 0.1 Nucleated Red Blood Cells # 0.0 Sodium Level 138 Potassium Level 4.8 Chloride Level 105 Carbon Dioxide Level 26 Anion Gap 7 Blood Urea Nitrogen 38 H Creatinine 2.02 H Glucose Level 112 Calcium Level 9.7 Phosphorus Level 4.5 Magnesium Level 2.1 Albumin 3.2 L Medications Medication Current Medications Nicotine (Nicoderm 21 Mg/ 24hr) 1 patch DAILY TRANSDERM Last administered on 01/11/19 08:19; Admin Dose 1 PATCH; Start 01/06/19 at 01:00 Acetaminophen (Tylenol Tab) 650 mg Q6H PRN PO MILD PAIN(1-3)OR ELEVATED TEMP; Start 01/06/19 at 01:00 Acetaminophen/ Hydrocodone Bitart ([place] (5/325)) 1 tab Q6H PRN PO MODERATE PAIN LEVEL 4-6 Last administered on 01/08/19at 21:53; Admin Dose 1 TAB; Start 01/06/19 at 01:00 Lorazepam (Ativan) 1 mg Q6H PRN IV ANXIETY Last administered on 01/10/19 22:26; Admin Dose 1 MG; Start 01/06/19 at 01:00 Ondansetron HCl (Zofran Inj) 4 mg Q6H PRN IV NAUSEA AND/OR VOMITING; Start 01/06/19 at 01:00 Ranitidine HCl (Zantac) 150 mg BID PO Last administered on 01/11/19 08:14; Admin Dose 150 MG; Start 01/06/19 at 02:01 Meropenem/Sodium Chloride 50 ml @ 100 mls/hr Q12 IVPB Last administered on 01/11/19 08:14; Admin Dose 100 MLS/HR; Start 01/06/19 at 12:00 Calamine/Pramoxine (Caladryl Lotion) 1 applic Q2H PRN TOP itching; Start 01/08/19 at 11:30 Clotrimazole (Lotrimin Cr) 1 applic BID TOP Last administered on 01/11/19 08:13; Admin Dose 1 APPLIC; Start 01/08/19 at 21:00 Nicotine Polacrilex (Nicorette) 4 mg Q2H PRN BUCCAL cravings; Start 01/10/19 at 11:00 Sodium Chloride 1,000 ml @ 100 mls/hr Q10H IV Last administered on 01/10/19at 21:44; Admin Dose 100 MLS/HR; Start 01/10/19 at 16:00 JYOTI CRONIN NP Jan 11, 2019 11:37
[2019-01-11] MEDS: SOD CHLORIDE 0.45% 1,000 ML IV SCH ×2 (12:00→18:13)
--- NOTE | 2019-01-11 14:41 | PN ---
Date/Time of Note Date/Time of Note DATE: 01/11/19 TIME: 14:37 Assessment/Plan VTE Prophylaxis Risk score (from Ns)>0 risk: 1 SCD applied (from Ns): No SCD contraindicated: low risk/ambulating Pharmacological prophylaxis: LMWH Lines/Catheters IV Catheter Type (from [facility]): Peripheral IV Urinary Cath still in place: No Assessment/Plan Hospital Course Assessment and plan 1. Sepsis, E. coli associated, stable finish antibiotics 01/19 2. Recurrent/ complicated cystitis. Urology assistance; undergoing catheterization training 3. Chronic urethral stricture/indwelling Saunders's status. Saunders continued a few days back. 4. Chronic hypospadias h/o surgery 5. Substance abuse: Meth cocaine 6. Acute renal failure/obstructive uropathy fairly stable possible CKD 7. Hypertension 8. COPD? 8. Tobacco abuse status post counseling offered patch 9. Anemia 10. Constipation 11. thyroid nodule, outpatient endocrinology S: Patient attempting catheterization training with the assistance of urology events noted O: Vital signs stable PE No pallor Regular Clear Bs+ nt nd no RRG No edema Result Diagram: 01/11/1924 01/11/1924 Results 24hrs Laboratory Tests Test 01/11/19 07:24 White Blood Count 16.6 H Red Blood Count 3.55 L Hemoglobin 9.5 L Hematocrit 29.3 L Mean Corpuscular Volume 82.5 Mean Corpuscular Hemoglobin 26.8 L Mean Corpuscular Hemoglobin Concent 32.4 Red Cell Distribution Width 14.2 Platelet Count 464 H Mean Platelet Volume 10.1 Immature Granulocytes % 2.700 H Neutrophils % 65.4 Lymphocytes % 19.3 Monocytes % 10.2 Eosinophils % 1.6 Basophils % 0.8 Nucleated Red Blood Cells % 0.0 Immature Granulocytes # 0.450 H Neutrophils # 10.9 H Lymphocytes # 3.2 H Monocytes # 1.7 H Eosinophils # 0.3 Basophils # 0.1 Nucleated Red Blood Cells # 0.0 Sodium Level 138 Potassium Level 4.8 Chloride Level 105 Carbon Dioxide Level 26 Anion Gap 7 Blood Urea Nitrogen 38 H Creatinine 2.02 H Glucose Level 112 Calcium Level 9.7 Phosphorus Level 4.5 Magnesium Level 2.1 Albumin 3.2 L Exam/Review of Systems Exam Vitals Vital Signs Date Temp Pulse Resp B/P (MAP) Pulse Ox O2 O2 Flow FiO2 Time Delivery Rate 01/11/19 98.0 67 18 113/68 96 07:47 (83) 01/10/19 Room Air 19:43 Intake and Output 01/10/19 01/10/19 01/11/19 1515:00 23:00 07:00 IntakeIntake Total 750 ml 850 ml OutputOutput Total 700 ml 1360 ml BalanceBalance 50 ml 850 ml -1360 ml Results Results 24hrs Laboratory Tests Test 01/11/19 07:24 White Blood Count 16.6 H Red Blood Count 3.55 L Hemoglobin 9.5 L Hematocrit 29.3 L Mean Corpuscular Volume 82.5 Mean Corpuscular Hemoglobin 26.8 L Mean Corpuscular Hemoglobin Concent 32.4 Red Cell Distribution Width 14.2 Platelet Count 464 H Mean Platelet Volume 10.1 Immature Granulocytes % 2.700 H Neutrophils % 65.4 Lymphocytes % 19.3 Monocytes % 10.2 Eosinophils % 1.6 Basophils % 0.8 Nucleated Red Blood Cells % 0.0 Immature Granulocytes # 0.450 H Neutrophils # 10.9 H Lymphocytes # 3.2 H Monocytes # 1.7 H Eosinophils # 0.3 Basophils # 0.1 Nucleated Red Blood Cells # 0.0 Sodium Level 138 Potassium Level 4.8 Chloride Level 105 Carbon Dioxide Level 26 Anion Gap 7 Blood Urea Nitrogen 38 H Creatinine 2.02 H Glucose Level 112 Calcium Level 9.7 Phosphorus Level 4.5 Magnesium Level 2.1 Albumin 3.2 L Medications Medication Current Medications Nicotine (Nicoderm 21 Mg/ 24hr) 1 patch DAILY TRANSDERM Last administered on at 08:19; Admin Dose 1 PATCH; Start 01/06/19 at 01:00 Acetaminophen (Tylenol Tab) 650 mg Q6H PRN PO MILD PAIN(1-3)OR ELEVATED TEMP; Start 01/06/19 at 01:00 Acetaminophen/ Hydrocodone Bitart ([place] (5/325)) 1 tab Q6H PRN PO MODERATE PAIN LEVEL 4-6 Last administered on 01/08/19at 21:53; Admin Dose 1 TAB; Start 01/06/19 at 01:00 Lorazepam (Ativan) 1 mg Q6H PRN IV ANXIETY Last administered on 01/10/19at 22:26; Admin Dose 1 MG; Start 01/06/19 at 01:00 Ondansetron HCl (Zofran Inj) 4 mg Q6H PRN IV NAUSEA AND/OR VOMITING; Start 01/06/19 at 01:00 Ranitidine HCl (Zantac) 150 mg BID PO Last administered on 01/11/19 08:14; Admin Dose 150 MG; Start 01/06/19 at 02:01 Meropenem/Sodium Chloride 50 ml @ 100 mls/hr Q12 IVPB Last administered on 01/11/19 08:14; Admin Dose 100 MLS/HR; Start 01/06/19 at 12:00 Calamine/Pramoxine (Caladryl Lotion) 1 applic Q2H PRN TOP itching; Start 01/08/19 at 11:30 Clotrimazole (Lotrimin Cr) 1 applic BID TOP Last administered on 01/11/19 08:13; Admin Dose 1 APPLIC; Start 01/08/19 at 21:00 Nicotine Polacrilex (Nicorette) 4 mg Q2H PRN BUCCAL cravings; Start 01/10/19 at 11:00 Sodium Chloride 1,000 ml @ 100 mls/hr Q10H IV Last administered on 01/10/19at 21:44; Admin Dose 100 MLS/HR; Start 01/10/19 at 16:00 DEBI BAKER MD Jan 11, 2019 14:41
[2019-01-11 14:44] VITALS: BP 121/61; PULSE 84; RESP 18
[2019-01-11] MEDS ORDERED: BISACODYL (EC) 5 MG TAB PO PRN (15:00)
[2019-01-11] MEDS ORDERED: ALBUTEROL HFA 8 GM INHALER INH PRN (15:00)
[2019-01-11 19:34] VITALS: BP 127/74; PULSE 79; RESP 18
[2019-01-11] MEDS: MULTIVITAMINS THERAPEUTIC TAB PO SCH (21:27)
[2019-01-11] MEDS: LACTOBACILLUS RHAMNOSUS CAP PO SCH (21:28)
[2019-01-11] MEDS: LORAZEPAM 2 MG INJ IV PRN (21:35)
[2019-01-12 02:10] VITALS: BP 118/70; PULSE 69; RESP 18
[2019-01-12] MEDS: SOD CHLORIDE 0.45% 1,000 ML IV SCH ×2 (05:19→18:15)
[2019-01-12 07:43] VITALS: BP 104/57; PULSE 59; RESP 18
[2019-01-12] MEDS: LACTOBACILLUS RHAMNOSUS CAP PO SCH ×2 (09:10→21:07)
[2019-01-12] MEDS: MULTIVITAMINS THERAPEUTIC TAB PO SCH (09:11)
[2019-01-12] MEDS: RANITIDINE 150 MG TAB PO SCH ×2 (09:11→21:07)
[2019-01-12] MEDS: SENNA/DOCUSATE NA (8.6MG/50MG) TAB PO SCH (09:11)
[2019-01-12] MEDS: NICOTINE (21 MG/24 HR) PATCH TRANSDERM SCH (09:13)
[2019-01-12] MEDS: ENOXAPARIN 30 MG/0.3 ML SYG SC SCH (09:20)
[2019-01-12] MEDS: MEROPENEM 1 GM/50ML(PMX) 50 ML IVPB SCH ×2 (09:22→21:07)
[2019-01-12] MEDS: CLOTRIMAZOLE 1% 30 GM CR TOP SCH ×2 (09:25→21:00)
--- NOTE | 2019-01-12 12:10 | CONS ---
Assessment/Plan Assessment/Plan Hospital Course (Demo Recall) Feels good, no fevers Microbiology: Blood cultures negative since admission blood culture from another facility grew E. coli, resistant to Cipro and Levaquin Allergy: Penicillin, sulfa Antimicrobials: Meropenem Physical examination: This is well-developed middle-aged white man who is alert in no distress. Head atraumatic normocephalic sclera nonicteric. Neck is supple. Chest rise symmetrical breath sounds clear. Heart: S1-S2. Abdomen obese soft bowel sounds present. Extremities without cyanosis Assessment: 1. E coli bacteremia per report from [facility] 2. Urinary retention status post Saunders dc'd 3. Chronic kidney disease 4. Homelessness 5. Polysubstance abuse 6. COPD Plan: Patient remains stable, continue abx for 7 more days, continue straight cath, f/u urology recommendations Consultation Date/Type/Reason Admit Date/Time Jan 05, 2019 at 22:58 Initial Consult Date 01/06/19 Type of Consult id Requesting Provider: HOLLY MINER Date/Time of Note DATE: 01/12/19 TIME: 12:09 Exam/Review of Systems Exam Vitals Vital Signs Date Temp Pulse Resp B/P (MAP) Pulse Ox O2 O2 Flow FiO2 Time Delivery Rate 01/12/19 97.8 59 18 104/57 97 Room Air 07:43 (73) Intake and Output 01/11/19 01/11/19 01/12/19 1515:00 23:00 07:00 IntakeIntake Total 930 ml 1730 ml 855 ml OutputOutput Total 1500 ml 3275 ml 975 ml BalanceBalance -570 ml -1545 ml -120 ml Results Result Diagram: 01/12/19 0647 01/12/19 0647 Results 24hrs Laboratory Tests Test 01/12/19 06:47 01/12/19 11:48 White Blood Count 14.1 H Red Blood Count 3.51 L Hemoglobin 9.1 L Hematocrit 29.0 L Mean Corpuscular Volume 82.6 Mean Corpuscular Hemoglobin 25.9 L Mean Corpuscular Hemoglobin Concent 31.4 L Red Cell Distribution Width 14.3 Platelet Count 406 Mean Platelet Volume 10.1 Immature Granulocytes % 3.000 H Neutrophils % 62.8 Lymphocytes % 20.9 Monocytes % 10.7 Eosinophils % 1.8 Basophils % 0.8 Nucleated Red Blood Cells % 0.0 Immature Granulocytes # 0.430 H Neutrophils # 8.9 H Lymphocytes # 3.0 H Monocytes # 1.5 H Eosinophils # 0.3 Basophils # 0.1 Nucleated Red Blood Cells # 0.0 Prothrombin Time 12.9 Prothrombin Time Ratio 1.0 INR International Normalized Ratio 0.96 Sodium Level 139 Potassium Level 4.5 Chloride Level 106 Carbon Dioxide Level 25 Anion Gap 8 Blood Urea Nitrogen 36 H Creatinine 1.77 H Est Glomerular Filtrat Rate mL/min 40 L Glucose Level 111 Calcium Level 9.4 Lab Scanned Report REFERENCE LAB Medications Medication Current Medications Nicotine (Nicoderm 21 Mg/ 24hr) 1 patch DAILY TRANSDERM Last administered on 01/12/19 09:13; Admin Dose 1 PATCH; Start 01/06/19 at 01:00 Acetaminophen (Tylenol Tab) 650 mg Q6H PRN PO MILD PAIN(1-3)OR ELEVATED TEMP; Start 01/06/19 at 01:00 Acetaminophen/ Hydrocodone Bitart ([place] (5/325)) 1 tab Q6H PRN PO MODERATE PAIN LEVEL 4-6 Last administered on 01/08/19 21:53; Admin Dose 1 TAB; Start 01/06/19 at 01:00 Lorazepam (Ativan) 1 mg Q6H PRN IV ANXIETY Last administered on 01/11/19 21:35; Admin Dose 1 MG; Start 01/06/19 at 01:00 Ondansetron HCl (Zofran Inj) 4 mg Q6H PRN IV NAUSEA AND/OR VOMITING; Start 01/06/19 at 01:00 Ranitidine HCl (Zantac) 150 mg BID PO Last administered on 01/12/19 09:11; Admin Dose 150 MG; Start 01/06/19 at 02:01 Meropenem/Sodium Chloride 50 ml @ 100 mls/hr Q12 IVPB Last administered on 01/12/19 09:22; Admin Dose 100 MLS/HR; Start 01/06/19 at 12:00 Calamine/Pramoxine (Caladryl Lotion) 1 applic Q2H PRN TOP itching; Start 01/08/19 at 11:30 Clotrimazole (Lotrimin Cr) 1 applic BID TOP Last administered on 01/12/19 09:25; Admin Dose 1 APPLIC; Start 01/08/19 at 21:00 Nicotine Polacrilex (Nicorette) 4 mg Q2H PRN BUCCAL cravings; Start 01/10/19 at 11:00 Sodium Chloride 1,000 ml @ 100 mls/hr Q10H IV Last administered on 01/12/19 05:19; Admin Dose 100 MLS/HR; Start 01/10/19 at 16:00 Enoxaparin Sodium (Lovenox) 30 mg DAILY SC Last administered on 01/12/19 09:20; Admin Dose 30 MG; Start 01/12/19 at 09:00 Lactobacillus Acidophilus/ Rhamnosus (Culturelle) 1 cap BID PO Last administered on 01/12/19 09:10; Admin Dose 1 CAP; Start 01/11/19 at 21:00 Albuterol (Ventolin Hfa) 2 puff Q6H RESP THERAPY PRN INH SHORTNESS OF BREATH; Start 01/11/19 at 15:00 Senna/Docusate Sodium (Senokot-S) 2 tab DAILY PO Last administered on 01/12/19 09:11; Admin Dose 2 TAB; Start 01/12/19 at 09:00 Bisacodyl (Dulcolax) 10 mg DAILY PRN PO CONSTIPATION; Start 01/11/19 at 15:00 Multivitamins Therapeutic (Theragran) 1 tab DAILY PO Last administered on 01/12/19 09:11; Admin Dose 1 TAB; Start 01/11/19 at 20:30 JYOTI CRONIN NP Jan 12, 2019 12:10
[2019-01-12 13:55] VITALS: BP 132/62; PULSE 79; RESP 18
--- NOTE | 2019-01-12 15:25 | PN ---
Date/Time of Note Date/Time of Note DATE: 01/12/19 TIME: 15:22 Assessment/Plan VTE Prophylaxis Risk score (from Ns)>0 risk: 1 SCD applied (from Ns): No SCD contraindicated: low risk/ambulating Pharmacological prophylaxis: LMWH Lines/Catheters IV Catheter Type (from [facility]): Peripheral IV Urinary Cath still in place: No Assessment/Plan Hospital Course A/P 1. Sepsis, Ecoli assoc, stable, antibiotics till 01/19 2. Recurrent/ complicated cystitis. appreciate Urology assistance; undergoing catheterization training 3. Chronic urethral stricture/indwelling Saunders status. Saunders dced a few days back. 4. Chronic hypospadias h/o surgery 5. Substance abuse: Meth cocaine 6. Acute renal failure/obstructive uropathy fairly stable. possible CKD. Patient aware. 7. Hypertension 8. COPD? 8. Tobacco abuse status post counseling offered patch 9. Anemia 10. Constipation 11. Thyroid nodule, outpatient endocrinology 12. FTT awaiting placement due to homelessness S: 01/11: patient attempting catheterization training with the assistance of urology events noted 01/12: No distress. O: Vital signs stable PE No pallor Regular Clear Bs+ nt nd no RRG No edema Result Diagram: 01/12/19 0647 01/12/19 0647 Results 24hrs Laboratory Tests Test 01/12/19 06:47 01/12/19 11:48 White Blood Count 14.1 H Red Blood Count 3.51 L Hemoglobin 9.1 L Hematocrit 29.0 L Mean Corpuscular Volume 82.6 Mean Corpuscular Hemoglobin 25.9 L Mean Corpuscular Hemoglobin Concent 31.4 L Red Cell Distribution Width 14.3 Platelet Count 406 Mean Platelet Volume 10.1 Immature Granulocytes % 3.000 H Neutrophils % 62.8 Lymphocytes % 20.9 Monocytes % 10.7 Eosinophils % 1.8 Basophils % 0.8 Nucleated Red Blood Cells % 0.0 Immature Granulocytes # 0.430 H Neutrophils # 8.9 H Lymphocytes # 3.0 H Monocytes # 1.5 H Eosinophils # 0.3 Basophils # 0.1 Nucleated Red Blood Cells # 0.0 Prothrombin Time 12.9 Prothrombin Time Ratio 1.0 INR International Normalized Ratio 0.96 Sodium Level 139 Potassium Level 4.5 Chloride Level 106 Carbon Dioxide Level 25 Anion Gap 8 Blood Urea Nitrogen 36 H Creatinine 1.77 H Est Glomerular Filtrat Rate mL/min 40 L Glucose Level 111 Calcium Level 9.4 Lab Scanned Report REFERENCE LAB Exam/Review of Systems Exam Vitals Vital Signs Date Temp Pulse Resp B/P (MAP) Pulse Ox O2 O2 Flow FiO2 Time Delivery Rate 01/12/19 97.9 79 18 132/62 95 Room Air 13:55 (85) Intake and Output 01/11/19 01/11/19 01/12/19 1515:00 23:00 07:00 IntakeIntake Total 930 ml 1730 ml 855 ml OutputOutput Total 1500 ml 3275 ml 975 ml BalanceBalance -570 ml -1545 ml -120 ml Results Results 24hrs Laboratory Tests Test 01/12/19 06:47 01/12/19 11:48 White Blood Count 14.1 H Red Blood Count 3.51 L Hemoglobin 9.1 L Hematocrit 29.0 L Mean Corpuscular Volume 82.6 Mean Corpuscular Hemoglobin 25.9 L Mean Corpuscular Hemoglobin Concent 31.4 L Red Cell Distribution Width 14.3 Platelet Count 406 Mean Platelet Volume 10.1 Immature Granulocytes % 3.000 H Neutrophils % 62.8 Lymphocytes % 20.9 Monocytes % 10.7 Eosinophils % 1.8 Basophils % 0.8 Nucleated Red Blood Cells % 0.0 Immature Granulocytes # 0.430 H Neutrophils # 8.9 H Lymphocytes # 3.0 H Monocytes # 1.5 H Eosinophils # 0.3 Basophils # 0.1 Nucleated Red Blood Cells # 0.0 Prothrombin Time 12.9 Prothrombin Time Ratio 1.0 INR International Normalized Ratio 0.96 Sodium Level 139 Potassium Level 4.5 Chloride Level 106 Carbon Dioxide Level 25 Anion Gap 8 Blood Urea Nitrogen 36 H Creatinine 1.77 H Est Glomerular Filtrat Rate mL/min 40 L Glucose Level 111 Calcium Level 9.4 Lab Scanned Report REFERENCE LAB Medications Medication Current Medications Nicotine (Nicoderm 21 Mg/ 24hr) 1 patch DAILY TRANSDERM Last administered on 01/12/19at 09:13; Admin Dose 1 PATCH; Start 01/06/19 at 01:00 Acetaminophen (Tylenol Tab) 650 mg Q6H PRN PO MILD PAIN(1-3)OR ELEVATED TEMP; Start 01/06/19 at 01:00 Acetaminophen/ Hydrocodone Bitart ([place] (5/325)) 1 tab Q6H PRN PO MODERATE PAIN LEVEL 4-6 Last administered on 01/08/19 21:53; Admin Dose 1 TAB; Start 01/06/19 at 01:00 Lorazepam (Ativan) 1 mg Q6H PRN IV ANXIETY Last administered on 01/11/19 21:35; Admin Dose 1 MG; Start 01/06/19 at 01:00 Ondansetron HCl (Zofran Inj) 4 mg Q6H PRN IV NAUSEA AND/OR VOMITING; Start 01/06/19 at 01:00 Ranitidine HCl (Zantac) 150 mg BID PO Last administered on 01/12/19 09:11; Admin Dose 150 MG; Start 01/06/19 at 02:01 Meropenem/Sodium Chloride 50 ml @ 100 mls/hr Q12 IVPB Last administered on 01/12/19 09:22; Admin Dose 100 MLS/HR; Start 01/06/19 at 12:00 Calamine/Pramoxine (Caladryl Lotion) 1 applic Q2H PRN TOP itching; Start 01/08/19 at 11:30 Clotrimazole (Lotrimin Cr) 1 applic BID TOP Last administered on 01/12/19 09:25; Admin Dose 1 APPLIC; Start 01/08/19 at 21:00 Nicotine Polacrilex (Nicorette) 4 mg Q2H PRN BUCCAL cravings; Start 01/10/19 at 11:00 Sodium Chloride 1,000 ml @ 100 mls/hr Q10H IV Last administered on 01/12/19 05:19; Admin Dose 100 MLS/HR; Start 01/10/19 at 16:00 Enoxaparin Sodium (Lovenox) 30 mg DAILY SC Last administered on 01/12/19 09:20; Admin Dose 30 MG; Start 01/12/19 at 09:00 Lactobacillus Acidophilus/ Rhamnosus (Culturelle) 1 cap BID PO Last administe red on 01/12/19 09:10; Admin Dose 1 CAP; Start 01/11/19 at 21:00 Albuterol (Ventolin Hfa) 2 puff Q6H RESP THERAPY PRN INH SHORTNESS OF BREATH; Start 01/11/19 at 15:00 Senna/Docusate Sodium (Senokot-S) 2 tab DAILY PO Last administered on 6/14/19at 09:11; Admin Dose 2 TAB; Start 01/12/19 at 09:00 Bisacodyl (Dulcolax) 10 mg DAILY PRN PO CONSTIPATION; Start 01/11/19 at 15:00 Multivitamins Therapeutic (Theragran) 1 tab DAILY PO Last administered on 01/12/19at 09:11; Admin Dose 1 TAB; Start 01/11/19 at 20:30 DEBI BAKER MD Jan 12, 2019 15:25
[2019-01-12 19:55] VITALS: BP 140/74; PULSE 75; RESP 18
--- NOTE | 2019-01-12 20:03 | CONS ---
Consult Date/Type/Reason Admit Date/Time Jan 05, 2019 at 22:58 Initial Consult Date 01/06/19 Type of Consultation: Urology Reason for Consultation Urinary retention Requesting Provider: HOLLY MINER Date/Time of Note DATE: 01/12/19 TIME: 19:59 Subjective Patient is very happy as he is able to do his self-catheterization with the catheters I provided him. Objective Vitals Vital Signs Date Temp Pulse Resp B/P (MAP) Pulse Ox O2 O2 Flow FiO2 Time Delivery Rate 01/12/19 98.1 75 18 140/74 97 19:55 (96) 01/12/19 Room Air 13:55 Intake and Output 01/11/19 01/11/19 01/12/19 1515:00 23:00 07:00 IntakeIntake Total 930 ml 1730 ml 855 ml OutputOutput Total 1500 ml 3275 ml 975 ml BalanceBalance -570 ml -1545 ml -120 ml Exam Patient is catheterizing himself and have good urine output. The urine is cl ear. Results/Medications Result Diagram: 01/12/19 0647 01/12/19 0647 Results 24 hrs Laboratory Tests Test 01/12/19 06:47 01/12/19 11:48 White Blood Count 14.1 H Red Blood Count 3.51 L Hemoglobin 9.1 L Hematocrit 29.0 L Mean Corpuscular Volume 82.6 Mean Corpuscular Hemoglobin 25.9 L Mean Corpuscular Hemoglobin Concent 31.4 L Red Cell Distribution Width 14.3 Platelet Count 406 Mean Platelet Volume 10.1 Immature Granulocytes % 3.000 H Neutrophils % 62.8 Lymphocytes % 20.9 Monocytes % 10.7 Eosinophils % 1.8 Basophils % 0.8 Nucleated Red Blood Cells % 0.0 Immature Granulocytes # 0.430 H Neutrophils # 8.9 H Lymphocytes # 3.0 H Monocytes # 1.5 H Eosinophils # 0.3 Basophils # 0.1 Nucleated Red Blood Cells # 0.0 Prothrombin Time 12.9 Prothrombin Time Ratio 1.0 INR International Normalized Ratio 0.96 Sodium Level 139 Potassium Level 4.5 Chloride Level 106 Carbon Dioxide Level 25 Anion Gap 8 Blood Urea Nitrogen 36 H Creatinine 1.77 H Est Glomerular Filtrat Rate mL/min 40 L Glucose Level 111 Calcium Level 9.4 Lab Scanned Report REFERENCE LAB Home Meds No Active Prescriptions or Reported Meds Medications Current Medications Nicotine (Nicoderm 21 Mg/ 24hr) 1 patch DAILY TRANSDERM Last administered on 01/12/19 09:13; Admin Dose 1 PATCH; Start 01/06/19 at 01:00 Acetaminophen (Tylenol Tab) 650 mg Q6H PRN PO MILD PAIN(1-3)OR ELEVATED TEMP; Start 01/06/19 at 01:00 Acetaminophen/ Hydrocodone Bitart ([place] (5/325)) 1 tab Q6H PRN PO MODERATE PAIN LEVEL 4-6 Last administered on 01/08/19 21:53; Admin Dose 1 TAB; Start 01/06/19 at 01:00 Lorazepam (Ativan) 1 mg Q6H PRN IV ANXIETY Last administered on 01/11/19 21:35; Admin Dose 1 MG; Start 01/06/19 at 01:00 Ondansetron HCl (Zofran Inj) 4 mg Q6H PRN IV NAUSEA AND/OR VOMITING; Start 01/06/19 at 01:00 Ranitidine HCl (Zantac) 150 mg BID PO Last administered on 01/12/19 09:11; Admin Dose 150 MG; Start 01/06/19 at 02:01 Meropenem/Sodium Chloride 50 ml @ 100 mls/hr Q12 IVPB Last administered on 01/12/19 09:22; Admin Dose 100 MLS/HR; Start 01/06/19 at 12:00 Calamine/Pramoxine (Caladryl Lotion) 1 applic Q2H PRN TOP itching; Start 01/08/19 at 11:30 Clotrimazole (Lotrimin Cr) 1 applic BID TOP Last administered on 01/12/19 09:25; Admin Dose 1 APPLIC; Start 01/08/19 at 21:00 Nicotine Polacrilex (Nicorette) 4 mg Q2H PRN BUCCAL cravings Last administered on 01/12/19 17:31; Admin Dose 4 MG; Start 01/10/19 at 11:00 Sodium Chloride 1,000 ml @ 100 mls/hr Q10H IV Last administered on 01/12/19 18:15; Admin Dose 100 MLS/HR; Start 01/10/19 at 16:00 Enoxaparin Sodium (Lovenox) 30 mg DAILY SC Last administered on 6/14/19at 09:20; Admin Dose 30 MG; Start 01/12/19 at 09:00 Lactobacillus Acidophilus/ Rhamnosus (Culturelle) 1 cap BID PO Last administered on 01/12/19at 09:10; Admin Dose 1 CAP; Start 01/11/19 at 21:00 Albuterol (Ventolin Hfa) 2 puff Q6H RESP THERAPY PRN INH SHORTNESS OF BREATH; Start 01/11/19 at 15:00 Senna/Docusate Sodium (Senokot-S) 2 tab DAILY PO Last administered on 01/12/19at 09:11; Admin Dose 2 TAB; Start 01/12/19 at 09:00; Stop 01/13/19 at 23:00 Bisacodyl (Dulcolax) 10 mg DAILY PRN PO CONSTIPATION; Start 01/11/19 at 15:00 Multivitamins Therapeutic (Theragran) 1 tab DAILY PO Last administered on 01/12/19at 09:11; Admin Dose 1 TAB; Start 01/11/19 at 20:30 Assessment/Plan Hospital Course (Demo Recall) 58-year-old male was sent to the emergency room by his primary care physician because of recurrent urinary tract infection that could not be treated as an outpatient as he does have multidrug-resistant organisms and he has multiple allergies to oral antibiotics. Patient is known to have a history of hypospadias and underwent surgeries for that. That was complicated by urethral strictures. The patient was seen here in 2013 with urinary retention. He was taught to do self-catheterization. After his discharge he did it for 5 days and then he stopped. He states that his housing condition did change and that is the reason why he did not continue to do it. Over time he started having urinary incontinence and wetting himself. He recently also was evicted from his apartment and now is living in his car. He went to the emergency room at [facility] and they were able to insert a 10 [place]ik Saunders catheter for him and drained over 2 L of urine. Patient was transferred here because of his insurance. Presently the patient is doing better. The 14 Tajik Saunders catheter was removed on 01/10/2019. The patient has been started on and out catheterization every 6 hours. I did provide him with catheters that are self lubricated and hydrophilic. He learned very fast how to use them and is being successful. I have requested from the onsite case manager to have his insurance provide him with these catheters so he could use them at home. KELSI PARKER MD Jan 12, 2019 20:03
[2019-01-12] MEDS: LORAZEPAM 2 MG INJ IV PRN (23:42)
[2019-01-13 01:43] VITALS: BP 126/68; PULSE 70; RESP 18
[2019-01-13] MEDS: SOD CHLORIDE 0.45% 1,000 ML IV SCH ×2 (05:53→14:00)
[2019-01-13 07:46] VITALS: BP 117/62; PULSE 71; RESP 18
[2019-01-13] MEDS: LACTOBACILLUS RHAMNOSUS CAP PO SCH ×2 (09:39→21:27)
[2019-01-13] MEDS: MULTIVITAMINS THERAPEUTIC TAB PO SCH (09:40)
[2019-01-13] MEDS: MEROPENEM 1 GM/50ML(PMX) 50 ML IVPB SCH ×2 (09:40→21:34)
[2019-01-13] MEDS: NICOTINE (21 MG/24 HR) PATCH TRANSDERM SCH (09:40)
[2019-01-13] MEDS: SENNA/DOCUSATE NA (8.6MG/50MG) TAB PO SCH (09:40)
[2019-01-13] MEDS: RANITIDINE 150 MG TAB PO SCH ×2 (09:40→21:27)
[2019-01-13] MEDS: ENOXAPARIN 30 MG/0.3 ML SYG SC SCH (09:41)
[2019-01-13] MEDS: CLOTRIMAZOLE 1% 30 GM CR TOP SCH ×2 (09:41→21:54)
--- NOTE | 2019-01-13 12:54 | PN ---
Date/Time of Note Date/Time of Note DATE: 01/13/19 TIME: 12:47 Assessment/Plan VTE Prophylaxis Risk score (from Ns)>0 risk: 1 SCD applied (from [facility] [place]): No SCD contraindicated: bilateral LE trauma Pharmacological prophylaxis: heparin Lines/Catheters IV Catheter Type (from [facility]): Peripheral IV Urinary Cath still in place: No Assessment/Plan Problems: (1) Left thyroid nodule Status: Chronic Comment: At this time this is perfectly appropriate for biopsy. Given that he will be here for a few days there is no reason to wait for an outpatient follow- up and will get this done now (2) Right thyroid nodule Status: Chronic Comment: At this time this is perfectly appropriate for biopsy. Given that he will be here for a few days there is no reason to wait for an outpatient follow- up and will get this done now (3) Bacteremia due to Escherichia coli Status: Acute Comment: Completing IV antibiotic therapy (4) E. coli UTI Status: Acute Comment: Completing IV antibiotic therapy (5) Chronic indwelling Saunders catheter Status: Chronic Comment: Being transitioned over to self cath. We will try to make sure to connect the dots about which type of catheters. Dr. Cervantes is very carefully specified the following "speedi cath flex coud pro 44 cm 15 [place] spends 150/month patient to do self-catheterization 5 times a day (6) Hypospadias in male Status: Chronic Comment: Noted. (7) Chronic kidney disease (CKD) stage G3b/A2, moderately decreased glomerular filtration rate (GFR) between 30-44 mL/min/1.73 square meter and albuminuria creatinine ratio between 30-299 mg/g Status: Chronic Comment: Stable and at baseline (8) Homeless single person Status: Chronic Comment: Noted. (9) Anemia Comment: Noted. Result Diagram: 01/12/19 0647 01/12/19 0647 Subjective 24 Hr Interval Summary Free Text/Dictation Patient reports he is doing well and is awaiting completion of the antibiotics on the for discharge. He also is very curious about getting a completion of the work-up for his thyroid nodules Constitutional: no complaints Cardiovascular: no complaints Gastrointestinal: no complaints Genitourinary: no complaints Musculoskeletal: no complaints Exam/Review of Systems Exam Vitals Vital Signs Date Temp Pulse Resp B/P (MAP) Pulse Ox O2 O2 Flow FiO2 Time Delivery Rate 01/13/19 97.9 71 18 117/62 98 Room Air 07:46 (80) Intake and Output 01/12/19 01/12/19 01/13/19 1515:00 23:00 07:00 IntakeIntake Total 950 ml 1400 ml 1050 ml OutputOutput Total 1640 ml 775 ml 850 ml BalanceBalance -690 ml 625 ml 200 ml Constitutional: alert, oriented Neck: supple, non-tender Respiratory: clear to auscultation, normal air movement Cardiovascular: regular rate and rhythm, nl pulses Gastrointestinal: soft, nl liver, spleen, non-tender Medications Medication Current Medications Nicotine (Nicoderm 21 Mg/ 24hr) 1 patch DAILY TRANSDERM Last administered on 01/13/19 09:40; Admin Dose 1 PATCH; Start 01/06/19 at 01:00 Acetaminophen (Tylenol Tab) 650 mg Q6H PRN PO MILD PAIN(1-3)OR ELEVATED TEMP; Start 01/06/19 at 01:00 Acetaminophen/ Hydrocodone Bitart ([place] (5/325)) 1 tab Q6H PRN PO MODERATE PAIN LEVEL 4-6 Last administered on 01/08/19 21:53; Admin Dose 1 TAB; Start 01/06/19 at 01:00 Lorazepam (Ativan) 1 mg Q6H PRN IV ANXIETY Last administered on 01/12/19 23:42; Admin Dose 1 MG; Start 01/06/19 at 01:00 Ondansetron HCl (Zofran Inj) 4 mg Q6H PRN IV NAUSEA AND/OR VOMITING; Start 01/06 at 01:00 Ranitidine HCl (Zantac) 150 mg BID PO Last administered on 01/13/19 09:40; Admin Dose 150 MG; Start 01/06/19 at 02:01 Meropenem/Sodium Chloride 50 ml @ 100 mls/hr Q12 IVPB Last administered on 01/13/19 09:40; Admin Dose 100 MLS/HR; Start 01/06/19 at 12:00 Calamine/Pramoxine (Caladryl Lotion) 1 applic Q2H PRN TOP itching; Start 01/08/19 at 11:30 Clotrimazole (Lotrimin Cr) 1 applic BID TOP Last administered on 6/15/19at 09:41; Admin Dose 1 APPLIC; Start 01/08/19 at 21:00 Nicotine Polacrilex (Nicorette) 4 mg Q2H PRN BUCCAL cravings Last administered on 01/12/19at 17:31; Admin Dose 4 MG; Start 01/10/19 at 11:00 Sodium Chloride 1,000 ml @ 100 mls/hr Q10H IV Last administered on 01/13/19 05:53; Admin Dose 100 MLS/HR; Start 01/10/19 at 16:00 Enoxaparin Sodium (Lovenox) 30 mg DAILY SC Last administered on 01/13/19 09:41; Admin Dose 30 MG; Start 01/12/19 at 09:00 Lactobacillus Acidophilus/ Rhamnosus (Culturelle) 1 cap BID PO Last administered on 01/13/19at 09:39; Admin Dose 1 CAP; Start 01/11/19 at 21:00 Albuterol (Ventolin Hfa) 2 puff Q6H RESP THERAPY PRN INH SHORTNESS OF BREATH; Start 01/11/19 at 15:00 Senna/Docusate Sodium (Senokot-S) 2 tab DAILY PO Last administered on 01/13/19at 09:40; Admin Dose 2 TAB; Start 01/12/19 at 09:00; Stop 01/13/19 at 23:00 Bisacodyl (Dulcolax) 10 mg DAILY PRN PO CONSTIPATION; Start 01/11/19 at 15:00 Multivitamins Therapeutic (Theragran) 1 tab DAILY PO Last administered on 01/13/19at 09:40; Admin Dose 1 TAB; Start 01/11/19 at 20:30 LOKI LICEA MD Jan 13, 2019 12:54
--- NOTE | 2019-01-13 15:08 | CONS ---
Consult Date/Type/Reason Admit Date/Time Jan 05, 2019 at 22:58 Initial Consult Date 01/06/19 Type of Consultation: Urology Reason for Consultation Urinary retention and hydronephrosis Requesting Provider: HOLLY MINER Date/Time of Note DATE: 01/13/19 TIME: 15:05 Subjective Patient is doing well and he is able now to do his self-catheterization without a problem Objective Vitals Vital Signs Date Temp Pulse Resp B/P (MAP) Pulse Ox O2 O2 Flow FiO2 Time Delivery Rate 01/13/19 97.9 71 18 117/62 98 Room Air 07:46 (80) Intake and Output 01/12/19 01/12/19 01/13/19 1515:00 23:00 07:00 IntakeIntake Total 950 ml 1400 ml 1050 ml OutputOutput Total 1640 ml 775 ml 850 ml BalanceBalance -690 ml 625 ml 200 ml Exam Patient is getting about 900 mL every 6 hours of urine output. He is drinking a lot of fluids and he was also on IV fluids. The IV was discontinued Results/Medications Result Diagram: 01/12/19 0647 01/12/19 0647 Home Meds No Active Prescriptions or Reported Meds Medications Current Medications Nicotine (Nicoderm 21 Mg/ 24hr) 1 patch DAILY TRANSDERM Last administered on 01/13/19at 09:40; Admin Dose 1 PATCH; Start 01/06/19 at 01:00 Acetaminophen (Tylenol Tab) 650 mg Q6H PRN PO MILD PAIN(1-3)OR ELEVATED TEMP; Start 01/06/19 at 01:00 Acetaminophen/ Hydrocodone Bitart ([place] (5/325)) 1 tab Q6H PRN PO MODERATE PAIN LEVEL 4-6 Last administered on 01/08/19at 21:53; Admin Dose 1 TAB; Start 01/06/19 at 01:00 Lorazepam (Ativan) 1 mg Q6H PRN IV ANXIETY Last administered on 01/12/19at 23:42; Admin Dose 1 MG; Start 01/06/19 at 01:00 Ondansetron HCl (Zofran Inj) 4 mg Q6H PRN IV NAUSEA AND/OR VOMITING; Start 01/06/19 at 01:00 Ranitidine HCl (Zantac) 150 mg BID PO Last administered on 01/13/19at 09:40; Admin Dose 150 MG; Start 01/06/19 at 02:01 Meropenem/Sodium Chloride 50 ml @ 100 mls/hr Q12 IVPB Last administered on 09:40; Admin Dose 100 MLS/HR; Start 01/06/19 at 12:00 Calamine/Pramoxine (Caladryl Lotion) 1 applic Q2H PRN TOP itching; Start 01/08/19 at 11:30 Clotrimazole (Lotrimin Cr) 1 applic BID TOP Last administered on 01/13/19 09:41; Admin Dose 1 APPLIC; Start 01/08/19 at 21:00 Nicotine Polacrilex (Nicorette) 4 mg Q2H PRN BUCCAL cravings Last administered on 01/12/19 17:31; Admin Dose 4 MG; Start 01/10/19 at 11:00 Sodium Chloride 1,000 ml @ 100 mls/hr Q10H IV Last administered on 01/13/19 05:53; Admin Dose 100 MLS/HR; Start 01/10/19 at 16:00 Enoxaparin Sodium (Lovenox) 30 mg DAILY SC Last administered on 01/13/19 09:41; Admin Dose 30 MG; Start 01/12/19 at 09:00 Lactobacillus Acidophilus/ Rhamnosus (Culturelle) 1 cap BID PO Last administered on 01/13/19 09:39; Admin Dose 1 CAP; Start 01/11/19 at 21:00 Albuterol (Ventolin Hfa) 2 puff Q6H RESP THERAPY PRN INH SHORTNESS OF BREATH; Start 01/11/19 at 15:00 Senna/Docusate Sodium (Senokot-S) 2 tab DAILY PO Last administered on 01/13/19 09:40; Admin Dose 2 TAB; Start 01/12/19 at 09:00; Stop 01/13/19 at 23:00 Bisacodyl (Dulcolax) 10 mg DAILY PRN PO CONSTIPATION; Start 01/11/19 at 15:00 Multivitamins Therapeutic (Theragran) 1 tab DAILY PO Last administered on 01/13/19 09:40; Admin Dose 1 TAB; Start 01/11/19 at 20:30 Assessment/Plan Hospital Course (Demo Recall) 58-year-old male was sent to the emergency room by his primary care physician because of recurrent urinary tract infection that could not be treated as an outpatient as he does have multidrug-resistant organisms and he has multiple allergies to oral antibiotics. Patient is known to have a history of hypospadias and underwent surgeries for that. That was complicated by urethral strictures. The patient was seen here in 2013 with urinary retention. He was taught to do self-catheterization. After his discharge he did it for 5 days and then he stopped. He states that his housing condition did change and that is the reason why he did not continue to do it. Over time he started having urinary incontinence and wetting himself. He recently also was evicted from his apartment and now is living in his car. He went to the emergency room at [place] and they were able to insert a 10 Taj[place] Saunders catheter for him and drained over 2 L of urine. Patient was transferred here because of his insurance. Presently the patient is doing better. The 14 Tajik Saunders catheter was removed on 01/10/2019. The patient has been started on and out catheterization every 6 hours. I did provide him with catheters that are self lubricated and hydrophilic. He learned very fast how to use them and is being successful. He continues to do well with the self- catheterization but the volume that he is getting is very high about 900 mL every 6 hours. Ideally he should have about 500 mL every 6 hours. Told him to drink less fluid and the IV fluid was stopped. Once the placement for him is arranged and the catheter supplies are provided then he may be discharged. KELSI PARKER MD Jan 13, 2019 15:08
--- NOTE | 2019-01-13 15:40 | CONS ---
Consultation Date/Type/Reason Admit Date/Time Jan 05, 2019 at 22:58 Initial Consult Date 01/06/19 Type of Consult SUBJECTIVE: PT is awake, alert, afebrile. NO acute events over night. VS: stable T: 97.9 LABS: reviewed. Microbiology: Blood cultures negative since admission blood culture from another facility grew E. coli, resistant to Cipro and Levaquin Allergy: Penicillin, sulfa Antimicrobials: Meropenem Physical examination: GEN: This is well-developed middle-aged white man, who is alert in no distress. HENT: Head atraumatic normocephalic, sclera nonicteric. Neck is supple. PULM: Chest rise symmetrical breath sounds clear. Heart: S1-S2. Abdomen: obese, soft , bowel sounds present. Extremities without cyanosis Assessment: 1. E coli bacteremia per report from [facility] 2. Urinary retention status post Saunders dc'd 3. Chronic kidney disease 4. Homelessness 5. Polysubstance abuse 6. COPD Plan: Patient remains stable. Will continue current abx for 6 more days. Pt is able to straight cath. Urology recommendations Requesting Provider: HOLLY MINER Date/Time of Note DATE: 01/13/19 TIME: 15:36 Exam/Review of Systems Exam Vitals Vital Signs Date Temp Pulse Resp B/P (MAP) Pulse Ox O2 O2 Flow FiO2 Time Delivery Rate 01/13/19 97.9 71 18 117/62 98 Room Air 07:46 (80) Intake and Output 01/12/19 01/12/19 01/13/19 1515:00 23:00 07:00 IntakeIntake Total 950 ml 1400 ml 1050 ml OutputOutput Total 1640 ml 775 ml 850 ml BalanceBalance -690 ml 625 ml 200 ml Results Result Diagram: 01/12/19 0647 01/12/19 0647 Medications Medication Current Medications Nicotine (Nicoderm 21 Mg/ 24hr) 1 patch DAILY TRANSDERM Last administered on 01/13/19at 09:40; Admin Dose 1 PATCH; Start 01/06/19 at 01:00 Acetaminophen (Tylenol Tab) 650 mg Q6H PRN PO MILD PAIN(1-3)OR ELEVATED TEMP; Start 01/06/19 at 01:00 Acetaminophen/ Hydrocodone Bitart ([place] (5/325)) 1 tab Q6H PRN PO MODERATE PAIN LEVEL 4-6 Last administered on 01/08/19 21:53; Admin Dose 1 TAB; Start 01/06/19 at 01:00 Lorazepam (Ativan) 1 mg Q6H PRN IV ANXIETY Last administered on 01/12/19 23:42; Admin Dose 1 MG; Start 01/06/19 at 01:00 Ondansetron HCl (Zofran Inj) 4 mg Q6H PRN IV NAUSEA AND/OR VOMITING; Start 01/06/19 at 01:00 Ranitidine HCl (Zantac) 150 mg BID PO Last administered on 01/13/19 09:40; Admin Dose 150 MG; Start 01/06/19 at 02:01 Meropenem/Sodium Chloride 50 ml @ 100 mls/hr Q12 IVPB Last administered on 01/13/19 09:40; Admin Dose 100 MLS/HR; Start 01/06/19 at 12:00 Calamine/Pramoxine (Caladryl Lotion) 1 applic Q2H PRN TOP itching; Start 01/08/19 at 11:30 Clotrimazole (Lotrimin Cr) 1 applic BID TOP Last administered on 01/13/19 09:41; Admin Dose 1 APPLIC; Start 01/08/19 at 21:00 Nicotine Polacrilex (Nicorette) 4 mg Q2H PRN BUCCAL cravings Last administered on 01/12/19 17:31; Admin Dose 4 MG; Start 01/10/19 at 11:00 Enoxaparin Sodium (Lovenox) 30 mg DAILY SC Last administered on 01/13/19 09:41; Admin Dose 30 MG; Start 01/12/19 at 09:00 Lactobacillus Acidophilus/ Rhamnosus (Culturelle) 1 cap BID PO Last administered on 01/13/19 09:39; Admin Dose 1 CAP; Start 01/11/19 at 21:00 Albuterol (Ventolin Hfa) 2 puff Q6H RESP THERAPY PRN INH SHORTNESS OF BREATH; Start 01/11/19 at 15:00 Senna/Docusate Sodium (Senokot-S) 2 tab DAILY PO Last administered on 01/13/19 09:40; Admin Dose 2 TAB; Start 01/12/19 at 09:00; Stop 01/13/19 at 23:00 Bisacodyl (Dulcolax) 10 mg DAILY PRN PO CONSTIPATION; Start 01/11/19 at 15:00 Multivitamins Therapeutic (Theragran) 1 tab DAILY PO Last administered on at 09:40; Admin Dose 1 TAB; Start 01/11/19 at 20:30 DANNA VIDAL Jan 13, 2019 15:40
[2019-01-13 20:10] VITALS: BP 111/70; PULSE 88; RESP 20
[2019-01-13] MEDS: LORAZEPAM 2 MG INJ IV PRN (21:35)
[2019-01-14 02:16] VITALS: BP 121/62; PULSE 82; RESP 17
[2019-01-14 07:46] VITALS: BP 124/65; PULSE 73; RESP 17
[2019-01-14] MEDS: MULTIVITAMINS THERAPEUTIC TAB PO SCH (08:12)
[2019-01-14] MEDS: RANITIDINE 150 MG TAB PO SCH ×2 (08:12→20:49)
[2019-01-14] MEDS: LACTOBACILLUS RHAMNOSUS CAP PO SCH ×2 (08:12→20:49)
[2019-01-14] MEDS: NICOTINE (21 MG/24 HR) PATCH TRANSDERM SCH (08:12)
[2019-01-14] MEDS: MEROPENEM 1 GM/50ML(PMX) 50 ML IVPB SCH ×2 (08:12→20:49)
[2019-01-14] MEDS: CLOTRIMAZOLE 1% 30 GM CR TOP SCH ×2 (08:13→20:50)
[2019-01-14] MEDS: ENOXAPARIN 30 MG/0.3 ML SYG SC SCH (08:14)
[2019-01-14] MEDS: LORAZEPAM 2 MG INJ IV PRN ×2 (09:52→21:45)
--- NOTE | 2019-01-14 10:07 | PN ---
Date/Time of Note Date/Time of Note DATE: 01/14/19 TIME: 10:04 Assessment/Plan VTE Prophylaxis Risk score (from Ns)>0 risk: 1 SCD applied (from Ns): No SCD contraindicated: low risk/ambulating Pharmacological prophylaxis: heparin Lines/Catheters IV Catheter Type (from Nrs): [place] Urinary Cath still in place: No Assessment/Plan Problems: (1) Bacteremia due to Escherichia coli Status: Acute Comment: Completing the antibiotic course on the as per infectious disease (2) E. coli UTI Status: Acute Comment: Completing antibiotic therapy on the as per ID (3) Urinary retention Status: Acute Comment: Doing self-catheterization. Please note that Dr. Cervantes had actually written physical prescriptions for the catheters. Communicated this extensively and thoroughly to case management so they can do the leg work in the week leading up to discharge about making sure this does not fall through the cracks (4) Chronic kidney disease (CKD) stage G3b/A2, moderately decreased glomerular filtration rate (GFR) between 30-44 mL/min/1.73 square meter and albuminuria creatinine ratio between 30-299 mg/g Status: Chronic Comment: Stable and at baseline (5) Hypospadias in male Status: Chronic Comment: Noted. (6) Chemical dependency Status: Chronic Comment: Re-counseled again (7) Left thyroid nodule Status: Chronic Comment: For biopsy in radiology tomorrow (8) Right thyroid nodule Status: Chronic Comment: For biopsy in radiology tomorrow Result Diagram: 01/12/19 0647 01/12/19 0647 Subjective 24 Hr Interval Summary Free Text/Dictation Patient continues to do relatively well though he has questions about the thyroid biopsy scheduled for the morning Constitutional: no complaints Respiratory: no complaints Cardiovascular: no complaints Gastrointestinal: no complaints Genitourinary: no complaints Exam/Review of Systems Exam Vitals Vital Signs Date Temp Pulse Resp B/P (MAP) Pulse Ox O2 O2 Flow FiO2 Time Delivery Rate 01/14/19 98.1 73 17 124/65 96 Room Air 07:46 (84) Intake and Output 01/13/19 01/13/19 01/14/19 1515:00 23:00 07:00 IntakeIntake Total 850 ml 550 ml 400 ml OutputOutput Total 875 ml 1000 ml BalanceBalance -25 ml 550 ml -600 ml Constitutional: alert, oriented Neck: supple, non-tender, thyromegaly (Bilateral thyroid nodules) Respiratory: clear to auscultation, normal air movement Cardiovascular: regular rate and rhythm, nl pulses Gastrointestinal: soft, nl liver, spleen, non-tender Medications Medication Current Medications Nicotine (Nicoderm 21 Mg/ 24hr) 1 patch DAILY TRANSDERM Last administered on 01/14/19 08:12; Admin Dose 1 PATCH; Start 01/06/19 at 01:00 Acetaminophen (Tylenol Tab) 650 mg Q6H PRN PO MILD PAIN(1-3)OR ELEVATED TEMP; Start 01/06/19 at 01:00 Acetaminophen/ Hydrocodone Bitart ([place] (5/325)) 1 tab Q6H PRN PO MODERATE PAIN LEVEL 4-6 Last administered on 01/08/19 21:53; Admin Dose 1 TAB; Start 01/06/19 at 01:00 Lorazepam (Ativan) 1 mg Q6H PRN IV ANXIETY Last administered on 01/14/19 09:52; Admin Dose 1 MG; Start 01/06/19 at 01:00 Ondansetron HCl (Zofran Inj) 4 mg Q6H PRN IV NAUSEA AND/OR VOMITING; Start 01/06/19 at 01:00 Ranitidine HCl (Zantac) 150 mg BID PO Last administered on 01/14/19 08:12; Admin Dose 150 MG; Start 01/06/19 at 02:01 Meropenem/Sodium Chloride 50 ml @ 100 mls/hr Q12 IVPB Last administered on 01/14/19 08:12; Admin Dose 100 MLS/HR; Start 01/06/19 at 12:00 Calamine/Pramoxine (Caladryl Lotion) 1 applic Q2H PRN TOP itching; Start 01/08/19 at 11:30 Clotrimazole (Lotrimin Cr) 1 applic BID TOP Last administered on 01/13/19 21:54; Admin Dose 1 APPLIC; Start 01/08/19 at 21:00 Nicotine Polacrilex (Nicorette) 4 mg Q2H PRN BUCCAL cravings Last administered on 01/12/19 17:31; Admin Dose 4 MG; Start 01/10/19 at 11:00 Enoxaparin Sodium (Lovenox) 30 mg DAILY SC Last administered on 01/14/19at 08:14; Admin Dose 30 MG; Start 01/12/19 at 09:00 Lactobacillus Acidophilus/ Rhamnosus (Culturelle) 1 cap BID PO Last administered on 01/14/19at 08:12; Admin Dose 1 CAP; Start 01/11/19 at 21:00 Albuterol (Ventolin Hfa) 2 puff Q6H RESP THERAPY PRN INH SHORTNESS OF BREATH; Start 01/11/19 at 15:00 Bisacodyl (Dulcolax) 10 mg DAILY PRN PO CONSTIPATION; Start 01/11/19 at 15:00 Multivitamins Therapeutic (Theragran) 1 tab DAILY PO Last administered on 01/14/19at 08:12; Admin Dose 1 TAB; Start 01/11/19 at 20:30 LOKI LICEA MD Jan 14, 2019 10:07
--- NOTE | 2019-01-14 14:33 | CONS ---
Consultation Date/Type/Reason Admit Date/Time Jan 05, 2019 at 22:58 Initial Consult Date 01/06/19 Type of Consult SUBJECTIVE: PT is alert, afebrile. No acute events over night. VS: stable T: 98.1 LABS: reviewed. Microbiology: Blood cultures negative since admission blood culture from another facility grew E. coli, resistant to Cipro and Levaquin Allergy: Penicillin, sulfa Antimicrobials: Meropenem Physical examination: GEN: This is well-developed middle-aged white man, who is alert in no distress. HENT: Head atraumatic normocephalic, sclera nonicteric. Neck is supple. PULM: Chest rise symmetrical breath sounds clear. Heart: S1-S2. Abdomen: obese, soft , bowel sounds present. Extremities without cyanosis Assessment: 1. E coli bacteremia per report from [facility] 2. Urinary retention status post Saunders dc'd 3. Chronic kidney disease 4. Homelessness 5. Polysubstance abuse 6. COPD 7. Lt thyroid nodule. Plan: Patient remains stable. Will continue current abx for 5 more days. Pt is able to straight cath. Urology recommendations. Bx of the thyroid nodule on Tuesday. Requesting Provider: HOLLY MINER Date/Time of Note DATE: 01/14/19 TIME: 14:31 Exam/Review of Systems Exam Vitals Vital Signs Date Temp Pulse Resp B/P (MAP) Pulse Ox O2 O2 Flow FiO2 Time Delivery Rate 01/14/19 98.1 73 17 124/65 96 Room Air 07:46 (84) Intake and Output 01/13/19 01/13/19 01/14/19 1515:00 23:00 07:00 IntakeIntake Total 850 ml 550 ml 400 ml OutputOutput Total 875 ml 1000 ml BalanceBalance -25 ml 550 ml -600 ml Results Result Diagram: 01/12/19 0647 01/12/19 0647 Medications Medication Current Medications Nicotine (Nicoderm 21 Mg/ 24hr) 1 patch DAILY TRANSDERM Last administered on 01/14/19at 08:12; Admin Dose 1 PATCH; Start 01/06/19 at 01:00 Acetaminophen (Tylenol Tab) 650 mg Q6H PRN PO MILD PAIN(1-3)OR ELEVATED TEMP; Start 01/06/19 at 01:00 Acetaminophen/ Hydrocodone Bitart ([place] (5/325)) 1 tab Q6H PRN PO MODERATE PAIN LEVEL 4-6 Last administered on 01/08/19 21:53; Admin Dose 1 TAB; Start 01/06/19 at 01:00 Lorazepam (Ativan) 1 mg Q6H PRN IV ANXIETY Last administered on 01/14/19 09:52; Admin Dose 1 MG; Start 01/06/19 at 01:00 Ondansetron HCl (Zofran Inj) 4 mg Q6H PRN IV NAUSEA AND/OR VOMITING; Start 01/06/19 at 01:00 Ranitidine HCl (Zantac) 150 mg BID PO Last administered on 01/14/19 08:12; Admin Dose 150 MG; Start 01/06/19 at 02:01 Meropenem/Sodium Chloride 50 ml @ 100 mls/hr Q12 IVPB Last administered on 01/14/19 08:12; Admin Dose 100 MLS/HR; Start 01/06/19 at 12:00 Calamine/Pramoxine (Caladryl Lotion) 1 applic Q2H PRN TOP itching; Start 01/08/19 at 11:30 Clotrimazole (Lotrimin Cr) 1 applic BID TOP Last administered on 01/13/19 21:54; Admin Dose 1 APPLIC; Start 01/08/19 at 21:00 Nicotine Polacrilex (Nicorette) 4 mg Q2H PRN BUCCAL cravings Last administered on 01/12/19at 17:31; Admin Dose 4 MG; Start 01/10/19 at 11:00 Enoxaparin Sodium (Lovenox) 30 mg DAILY SC Last administered on 01/14/19at 08:14; Admin Dose 30 MG; Start 01/12/19 at 09:00 Lactobacillus Acidophilus/ Rhamnosus (Culturelle) 1 cap BID PO Last administered on 01/14/19at 08:12; Admin Dose 1 CAP; Start 01/11/19 at 21:00 Albuterol (Ventolin Hfa) 2 puff Q6H RESP THERAPY PRN INH SHORTNESS OF BREATH; Start 01/11/19 at 15:00 Bisacodyl (Dulcolax) 10 mg DAILY PRN PO CONSTIPATION; Start 01/11/19 at 15:00 Multivitamins Therapeutic (Theragran) 1 tab DAILY PO Last administered on 01/14/19at 08:12; Admin Dose 1 TAB; Start 01/11/19 at 20:30 DANNA VIDAL Jan 14, 2019 14:33
[2019-01-14 15:08] VITALS: BP 129/86; PULSE 76; RESP 16
--- NOTE | 2019-01-14 16:06 | CONS ---
Consult Date/Type/Reason Admit Date/Time Jan 05, 2019 at 22:58 Initial Consult Date 01/06/19 Type of Consultation: Urology Reason for Consultation Urinary retention and bilateral hydronephrosis Requesting Provider: HOLLY MINER Date/Time of Note DATE: 01/14/19 TIME: 16:04 Subjective Patient states that he did urinate twice, about 200 mL each time but 1 hour later he did the self cath and drained 1100 mL. Objective Vitals Vital Signs Date Temp Pulse Resp B/P (MAP) Pulse Ox O2 O2 Flow FiO2 Time Delivery Rate 01/14/19 97.6 76 16 129/86 99 Room Air 15:08 (100) Intake and Output 01/13/19 01/13/19 01/14/19 1515:00 23:00 07:00 IntakeIntake Total 850 ml 550 ml 400 ml OutputOutput Total 875 ml 1000 ml BalanceBalance -25 ml 550 ml -600 ml Exam Abdomen is soft. The patient is doing his self-catheterization and he is doing it without problems. Results/Medications Result Diagram: 01/12/19 0647 01/12/19 0647 Home Meds No Active Prescriptions or Reported Meds Medications Current Medications Nicotine (Nicoderm 21 Mg/ 24hr) 1 patch DAILY TRANSDERM Last administered on 01/14/19at 08:12; Admin Dose 1 PATCH; Start 01/06/19 at 01:00 Acetaminophen (Tylenol Tab) 650 mg Q6H PRN PO MILD PAIN(1-3)OR ELEVATED TEMP; Start 01/06/19 at 01:00 Acetaminophen/ Hydrocodone Bitart ([place] (5/325)) 1 tab Q6H PRN PO MODERATE PAIN LEVEL 4-6 Last administered on 01/08/19at 21:53; Admin Dose 1 TAB; Start 01/06/19 at 01:00 Lorazepam (Ativan) 1 mg Q6H PRN IV ANXIETY Last administered on 01/14/19at 09:52; Admin Dose 1 MG; Start 01/06/19 at 01:00 Ondansetron HCl (Zofran Inj) 4 mg Q6H PRN IV NAUSEA AND/OR VOMITING; Start 01/06/19 at 01:00 Ranitidine HCl (Zantac) 150 mg BID PO Last administered on 01/14/19at 08:12; Admin Dose 150 MG; Start 01/06/19 at 02:01 Meropenem/Sodium Chloride 50 ml @ 100 mls/hr Q12 IVPB Last administered on 01/14/19 08:12; Admin Dose 100 MLS/HR; Start 01/06/19 at 12:00 Calamine/Pramoxine (Caladryl Lotion) 1 applic Q2H PRN TOP itching; Start 01/08/19 at 11:30 Clotrimazole (Lotrimin Cr) 1 applic BID TOP Last administered on 01/13/19at 21:54; Admin Dose 1 APPLIC; Start 01/08/19 at 21:00 Nicotine Polacrilex (Nicorette) 4 mg Q2H PRN BUCCAL cravings Last administered on 01/12/19 17:31; Admin Dose 4 MG; Start 01/10/19 at 11:00 Enoxaparin Sodium (Lovenox) 30 mg DAILY SC Last administered on 01/14/19 08:14; Admin Dose 30 MG; Start 01/12/19 at 09:00 Lactobacillus Acidophilus/ Rhamnosus (Culturelle) 1 cap BID PO Last administered on 01/14/19 08:12; Admin Dose 1 CAP; Start 01/11/19 at 21:00 Albuterol (Ventolin Hfa) 2 puff Q6H RESP THERAPY PRN INH SHORTNESS OF BREATH; Start 01/11/19 at 15:00 Bisacodyl (Dulcolax) 10 mg DAILY PRN PO CONSTIPATION; Start 01/11/19 at 15:00 Multivitamins Therapeutic (Theragran) 1 tab DAILY PO Last administered on 01/14/19 08:12; Admin Dose 1 TAB; Start 01/11/19 at 20:30 Assessment/Plan Hospital Course (Demo Recall) 58-year-old male was sent to the emergency room by his primary care physician because of recurrent urinary tract infection that could not be treated as an outpatient as he does have multidrug-resistant organisms and he has multiple allergies to oral antibiotics. Patient is known to have a history of hypospadias and underwent surgeries for that. That was complicated by urethral strictures. The patient was seen here in 2013 with urinary retention. He was taught to do self-catheterization. After his discharge he did it for 5 days and then he stopped. He states that his housing condition did change and that is the reason why he did not continue to do it. Over time he started having urinary incontinence and wetting himself. He recently also was evicted from his apartment and now is living in his car. He went to the emergency room at [place] and they were able to insert a 10 [place] Saunders catheter for him and drained over 2 L of urine. Patient was transferred here because of his insurance. Presently the patient is doing better. The 14 [place] Saunders catheter was removed on 01/10/2019. The patient has been started on and out catheterization every 6 hours. I did provide him with catheters that are self lubricated and hydrophilic. He learned very fast how to use them and is being successful. He continues to do well with the self- catheterization but the volume that he is getting is very high about 900 mL every 6 hours last one was 1100 mL. Ideally he should have about 500 mL every 6 hours. Told him to drink less fluid. Continue in and out catheter every 6 hours KELSI PARKER MD Jan 14, 2019 16:06
[2019-01-14] MEDS: HYDROCODONE/APAP (5/325) TAB PO PRN (17:25)
[2019-01-14 19:46] VITALS: BP 118/77; PULSE 80; RESP 18
[2019-01-15 02:21] VITALS: BP 120/66; PULSE 84; RESP 18
[2019-01-15] MEDS: ENOXAPARIN 30 MG/0.3 ML SYG SC SCH (09:00)
[2019-01-15] MEDS: CLOTRIMAZOLE 1% 30 GM CR TOP SCH ×2 (09:18→20:18)
[2019-01-15] MEDS: MULTIVITAMINS THERAPEUTIC TAB PO SCH (09:18)
[2019-01-15] MEDS: NICOTINE (21 MG/24 HR) PATCH TRANSDERM SCH (09:18)
[2019-01-15] MEDS: LACTOBACILLUS RHAMNOSUS CAP PO SCH ×2 (09:18→20:18)
[2019-01-15] MEDS: MEROPENEM 1 GM/50ML(PMX) 50 ML IVPB SCH ×2 (09:18→20:18)
[2019-01-15] MEDS: RANITIDINE 150 MG TAB PO SCH ×2 (09:18→20:18)
[2019-01-15] MEDS ORDERED: LIDOCAINE 1% (MDV) 20 ML INJ ONE (10:58)
--- NOTE | 2019-01-15 13:58 | PN ---
Date/Time of Note Date/Time of Note DATE: 01/15/19 TIME: 13:58 Assessment/Plan VTE Prophylaxis Risk score (from Ns)>0 risk: 1 SCD applied (from Ns): No SCD contraindicated: other Pharmacological prophylaxis: NA/contraindicated Pharm contraindication: low risk/ambulating, renal impairment Lines/Catheters [facility] [place] Urinary Cath still in place: No Assessment/Plan Hospital Course SUBJECTIVE: No fevers, dysuria or hematuria. Doing well. OBJECTIVE: Vital signs-see below PHYSICAL EXAM: Constitutional: Adequately built,not in acute distress. HEENT: Head atraumatic and normocephalic. Eyes: Extraocular muscles intact. Anicteric sclerae. Pupils equal bilaterally, reactive to light. NECK: Supple without lymph node. CHEST: Clear and good breath sounds equally. No wheezing. No rhonchi. HEART: S1, S2. Regular rate and rhythm. ABDOMEN: Soft/non tender with no rebound tenderness. Bowel sounds were present. EXTREMITIES: No cyanosis, clubbing or edema. NEUROLOGIC: Alert and oriented x3. No focal deficit. No sensory deficit. PSYCHOSOCIAL: No signs of depression. INTEGUMENTARY: No open wounds. ASSESSMENT AND PLAN:58 yo M w/ckd,recurrent uti w/MDRO,multiple abx allergies,urinary retntion requiring self cath who a,so stopped doing self cath recently ,tx from osh for incontinence.. Bacteremia due to Escherichia coli -Completing the antibiotic course on the 21st as per infectious disease E. coli UTI Completing antibiotic therapy on the 21st as per ID Urinary retention -Doing self-catheterization. Please note that Dr. Cervantes had actually written physical prescriptions for the catheters. Communicated this extensively and thoroughly to case management so they can do the leg work in the week leading up to discharge about making sure this does not fall through the cracks Chronic kidney disease (CKD) stage G3b/A2 - Stable and at baseline Bilateral thyroid nodules -s/p biopsy -f/u pathology Homelessnes -SW f/u Tobacco dependency -counselled -Nicotine patch Meth/coccaine abuse -counselled DVT prophylaxis: SCDs Disposition - CM on board for placement given need for IV antibiotics for 2 weeks.. Please not homelessness is the major barrier in discharging this patient. For the most part, he would need to complete the antibiotics in the hospital until Tuesday unless a long-term will open set for him. Patient was seen in collaboration with Dr. Brannon. Result Diagram: 01/12/1947 01/12/1947 Exam/Review of Systems Exam Vitals Vital Signs Date Temp Pulse Resp B/P (MAP) Pulse Ox O2 O2 Flow FiO2 Time Delivery Rate 01/15/19 97.4 84 18 120/66 98 02:21 (84) 01/14/19 Room Air 15:08 Intake and Output 01/14/19 01/14/19 01/15/19 1515:00 23:00 07:00 IntakeIntake Total 50 ml 710 ml OutputOutput Total 1935 ml 480 ml 775 ml BalanceBalance -1885 ml 230 ml -775 ml Medications Medication Current Medications Nicotine (Nicoderm 21 Mg/ 24hr) 1 patch DAILY TRANSDERM Last administered on 01/15/19at 09:18; Admin Dose 1 PATCH; Start 01/06/19 at 01:00 Acetaminophen (Tylenol Tab) 650 mg Q6H PRN PO MILD PAIN(1-3)OR ELEVATED TEMP; Start 01/06/19 at 01:00 Acetaminophen/ Hydrocodone Bitart ([place] (5/325)) 1 tab Q6H PRN PO MODERATE PAIN LEVEL 4-6 Last administered on 01/14/19at 17:25; Admin Dose 1 TAB; Start 01/06/19 at 01:00 Lorazepam (Ativan) 1 mg Q6H PRN IV ANXIETY Last administered on 01/14/19at 21:45; Admin Dose 1 MG; Start 01/06/19 at 01:00 Ondansetron HCl (Zofran Inj) 4 mg Q6H PRN IV NAUSEA AND/OR VOMITING; Start 01/06/19 at 01:00 Ranitidine HCl (Zantac) 150 mg BID PO Last administered on 01/15/19at 09:18; Admin Dose 150 MG; Start 01/06/19 at 02:01 Meropenem/Sodium Chloride 50 ml @ 100 mls/hr Q12 IVPB Last administered on 01/15/19at 09:18; Admin Dose 100 MLS/HR; Start 01/06/19 at 12:00 Calamine/Pramoxine (Caladryl Lotion) 1 applic Q2H PRN TOP itching; Start 01/08/19 at 11:30 Clotrimazole (Lotrimin Cr) 1 applic BID TOP Last administered on 01/15/19 09:18; Admin Dose 1 APPLIC; Start 01/08/19 at 21:00 Nicotine Polacrilex (Nicorette) 4 mg Q2H PRN BUCCAL cravings Last administered on 01/12/19 17:31; Admin Dose 4 MG; Start 01/10/19 at 11:00 Enoxaparin Sodium (Lovenox) 30 mg DAILY SC Last administered on 01/14/19at 08:14; Admin Dose 30 MG; Start 01/12/19 at 09:00 Lactobacillus Acidophilus/ Rhamnosus (Culturelle) 1 cap BID PO Last administered on 01/15/19 09:18; Admin Dose 1 CAP; Start 01/11/19 at 21:00 Albuterol (Ventolin Hfa) 2 puff Q6H RESP THERAPY PRN INH SHORTNESS OF BREATH; Start 01/11/19 at 15:00 Bisacodyl (Dulcolax) 10 mg DAILY PRN PO CONSTIPATION; Start 01/11/19 at 15:00 Multivitamins Therapeutic (Theragran) 1 tab DAILY PO Last administered on 01/15/19 09:18; Admin Dose 1 TAB; Start 01/11/19 at 20:30 COLLINS SCHREIBER NP Jan 15, 2019 13:58
[2019-01-15 14:00] VITALS: BP 123/77; PULSE 82; RESP 16
[2019-01-15] MEDS: HYDROCODONE/APAP (5/325) TAB PO PRN (14:44)
--- NOTE | 2019-01-15 15:25 | CONS ---
Assessment/Plan Assessment/Plan Hospital Course (Demo Recall) All noted, s/p thyroid bx, no fevers Microbiology: Blood cultures negative since admission blood culture from another facility grew E. coli, resistant to Cipro and Levaquin Allergy: Penicillin, sulfa Antimicrobials: Meropenem Physical examination: This is well-developed middle-aged white man who is alert in no distress. Head atraumatic normocephalic sclera nonicteric. Neck is supple. Chest rise symmetrical breath sounds clear. Heart: S1-S2. Abdomen obese soft bowel sounds present. Extremities without cyanosis Assessment: 1. E coli bacteremia per [facility] from [facility] 2. Urinary retention status post Saunders dc'd 3. Chronic kidney disease 4. Homelessness 5. Polysubstance abuse 6. COPD Plan: Patient remains stable, continue abx for 4 more days, continue self cath Consultation Date/Type/Reason Admit Date/Time Jan 05, 2019 at 22:58 Initial Consult Date 01/06/19 Type of Consult id Requesting Provider: HOLLY MINER Date/Time of Note DATE: 01/15/19 TIME: 15:24 Exam/Review of Systems Exam Vitals Vital Signs Date Temp Pulse Resp B/P (MAP) Pulse Ox O2 O2 Flow FiO2 Time Delivery Rate 01/15/19 97.9 82 16 123/77 98 14:00 (92) 01/14/19 Room Air 15:08 Intake and Output 01/14/19 01/14/19 01/15/19 1515:00 23:00 07:00 IntakeIntake Total 50 ml 710 ml OutputOutput Total 1935 ml 480 ml 775 ml BalanceBalance -1885 ml 230 ml -775 ml Results Result Diagram: 01/12/19 0647 01/12/19 0647 Medications Medication Current Medications Nicotine (Nicoderm 21 Mg/ 24hr) 1 patch DAILY TRANSDERM Last administered on 01/15/19at 09:18; Admin Dose 1 PATCH; Start 01/06/19 at 01:00 Acetaminophen (Tylenol Tab) 650 mg Q6H PRN PO MILD PAIN(1-3)OR ELEVATED TEMP; Start 01/06/19 at 01:00 Acetaminophen/ Hydrocodone Bitart ([place] (5/325)) 1 tab Q6H PRN PO MODERATE PAIN LEVEL 4-6 Last administered on 01/15/19at 14:44; Admin Dose 1 TAB; Start 01/06/19 at 01:00 Lorazepam (Ativan) 1 mg Q6H PRN IV ANXIETY Last administered on 01/14/19at 21:45; Admin Dose 1 MG; Start 01/06/19 at 01:00 Ondansetron HCl (Zofran Inj) 4 mg Q6H PRN IV NAUSEA AND/OR VOMITING; Start 01/06/19 at 01:00 Ranitidine HCl (Zantac) 150 mg BID PO Last administered on 01/15/19 09:18; Admin Dose 150 MG; Start 01/06/19 at 02:01 Meropenem/Sodium Chloride 50 ml @ 100 mls/hr Q12 IVPB Last administered on 01/15/19 09:18; Admin Dose 100 MLS/HR; Start 01/06/19 at 12:00 Calamine/Pramoxine (Caladryl Lotion) 1 applic Q2H PRN TOP itching; Start 01/08/19 at 11:30 Clotrimazole (Lotrimin Cr) 1 applic BID TOP Last administered on 01/15/19 09:18; Admin Dose 1 APPLIC; Start 01/08/19 at 21:00 Nicotine Polacrilex (Nicorette) 4 mg Q2H PRN BUCCAL cravings Last administered on 01/12/19at 17:31; Admin Dose 4 MG; Start 01/10/19 at 11:00 Lactobacillus Acidophilus/ Rhamnosus (Culturelle) 1 cap BID PO Last administered on 01/15/19 09:18; Admin Dose 1 CAP; Start 01/11/19 at 21:00 Albuterol (Ventolin Hfa) 2 puff Q6H RESP THERAPY PRN INH SHORTNESS OF BREATH; Start 01/11/19 at 15:00 Bisacodyl (Dulcolax) 10 mg DAILY PRN PO CONSTIPATION; Start 01/11/19 at 15:00 Multivitamins Therapeutic (Theragran) 1 tab DAILY PO Last administered on 09:18; Admin Dose 1 TAB; Start 01/11/19 at 20:30 JYOTI CRONIN NP Jan 15, 2019 15:25
--- NOTE | 2019-01-15 19:21 | CONS ---
Consult Date/Type/Reason Admit Date/Time Jan 05, 2019 at 22:58 Initial Consult Date 01/06/19 Type of Consultation: Urology Reason for Consultation Urinary retention Requesting Provider: HOLLY MINER Date/Time of Note DATE: 01/15/19 TIME: 19:18 Subjective Patient is feeling comfortable. He did have ultrasound-guided needle aspiration biopsy of his thyroid nodules. He still unable to urinate on his own and needs to continue doing the self-catheterization Objective Vitals Vital Signs Date Temp Pulse Resp B/P (MAP) Pulse Ox O2 O2 Flow FiO2 Time Delivery Rate 01/15/19 97.9 82 16 123/77 98 14:00 (92) 01/14/19 Room Air 15:08 Intake and Output 01/14/19 01/14/19 01/15/19 1515:00 23:00 07:00 IntakeIntake Total 50 ml 710 ml OutputOutput Total 1935 ml 480 ml 775 ml BalanceBalance -1885 ml 230 ml -775 ml Exam The abdomen is soft. He is doing his self-catheterization Results/Medications Result Diagram: 01/12/19 0647 01/12/19 0647 Home Meds No Active Prescriptions or Reported Meds Medications Current Medications Nicotine (Nicoderm 21 Mg/ 24hr) 1 patch DAILY TRANSDERM Last administered on 01/15/19at 09:18; Admin Dose 1 PATCH; Start 01/06/19 at 01:00 Acetaminophen (Tylenol Tab) 650 mg Q6H PRN PO MILD PAIN(1-3)OR ELEVATED TEMP; Start 01/06/19 at 01:00 Acetaminophen/ Hydrocodone Bitart ([place] (5/325)) 1 tab Q6H PRN PO MODERATE PAIN LEVEL 4-6 Last administered on 01/15/19at 14:44; Admin Dose 1 TAB; Start 01/06/19 at 01:00 Lorazepam (Ativan) 1 mg Q6H PRN IV ANXIETY Last administered on 01/14/19at 21:45; Admin Dose 1 MG; Start 01/06/19 at 01:00 Ondansetron HCl (Zofran Inj) 4 mg Q6H PRN IV NAUSEA AND/OR VOMITING; Start 01/06/19 at 01:00 Ranitidine HCl (Zantac) 150 mg BID PO Last administered on 01/15/19at 09:18; Admin Dose 150 MG; Start 01/06/19 at 02:01 Meropenem/Sodium Chloride 50 ml @ 100 mls/hr Q12 IVPB Last administered on 01/15/19 09:18; Admin Dose 100 MLS/HR; Start 01/06/19 at 12:00 Calamine/Pramoxine (Caladryl Lotion) 1 applic Q2H PRN TOP itching; Start 01/08/19 at 11:30 Clotrimazole (Lotrimin Cr) 1 applic BID TOP Last administered on 01/15/19 09:18; Admin Dose 1 APPLIC; Start 01/08/19 at 21:00 Nicotine Polacrilex (Nicorette) 4 mg Q2H PRN BUCCAL cravings Last administered on 01/12/19 17:31; Admin Dose 4 MG; Start 01/10/19 at 11:00 Lactobacillus Acidophilus/ Rhamnosus (Culturelle) 1 cap BID PO Last administered on 01/15/19 09:18; Admin Dose 1 CAP; Start 01/11/19 at 21:00 Albuterol (Ventolin Hfa) 2 puff Q6H RESP THERAPY PRN INH SHORTNESS OF BREATH; Start 01/11/19 at 15:00 Bisacodyl (Dulcolax) 10 mg DAILY PRN PO CONSTIPATION; Start 01/11/19 at 15:00 Multivitamins Therapeutic (Theragran) 1 tab DAILY PO Last administered on 01/15/19 09:18; Admin Dose 1 TAB; Start 01/11/19 at 20:30 Assessment/Plan Hospital Course (Demo Recall) 58-year-old male was sent to the emergency room by his primary care physician because of recurrent urinary tract infection that could not be treated as an outpatient as he does have multidrug-resistant organisms and he has multiple allergies to oral antibiotics. Patient is known to have a history of hypospadias and underwent surgeries for that. That was complicated by urethral strictures. The patient was seen here in 2013 with urinary retention. He was taught to do self-catheterization. After his discharge he did it for 5 days and then he stopped. He states that his housing condition did change and that is the reason why he did not continue to do it. Over time he started having urinary incontinence and wetting himself. He recently also was evicted from his apartment and now is living in his car. He went to the emergency room at [place] and they were able to insert a 10 [place] Saunders catheter for him and drained over 2 L of urine. Patient was transferred here because of his insurance. Presently the patient is doing better. Patient is doing his own self-catheterization and he is doing cath without any problem. He did undergo ultrasound-guided biopsy of his thyroid nodules today. Urologically he will continue doing his self-catheterization every 6 hours KELSI PARKER MD Jan 15, 2019 19:21
[2019-01-15 20:30] VITALS: BP 136/87; PULSE 83; RESP 17
[2019-01-16 02:33] VITALS: BP 128/75; PULSE 81; RESP 19
[2019-01-16 07:35] VITALS: BP 99/52; PULSE 70; RESP 16
[2019-01-16] MEDS: NICOTINE (21 MG/24 HR) PATCH TRANSDERM SCH (08:13)
[2019-01-16] MEDS: MULTIVITAMINS THERAPEUTIC TAB PO SCH (08:14)
[2019-01-16] MEDS: MEROPENEM 1 GM/50ML(PMX) 50 ML IVPB SCH ×2 (08:14→20:10)
[2019-01-16] MEDS: LACTOBACILLUS RHAMNOSUS CAP PO SCH ×2 (08:14→20:10)
[2019-01-16] MEDS: CLOTRIMAZOLE 1% 30 GM CR TOP SCH ×2 (08:14→20:39)
[2019-01-16] MEDS: RANITIDINE 150 MG TAB PO SCH ×2 (08:14→20:10)
--- NOTE | 2019-01-16 10:05 | PN ---
Date/Time of Note Date/Time of Note DATE: 01/16/19 TIME: 10:03 Assessment/Plan VTE Prophylaxis Risk score (from Ns)>0 risk: 1 SCD applied (from Nsg): Yes Pharmacological prophylaxis: NA/contraindicated Pharm contraindication: low risk/ambulating Lines/Catheters IV Catheter Type (from Nrsg): Peripheral IV Urinary Cath still in place: No Assessment/Plan Hospital Course SUBJECTIVE: No acute overnight episodes. OBJECTIVE: Vital signs-see below PHYSICAL EXAM: Constitutional: Adequately built,not in acute distress. HEENT: Head atraumatic and normocephalic. Eyes: Extraocular muscles intact. Anicteric sclerae. Pupils equal bilaterally, reactive to light. NECK: Supple without lymph node. CHEST: Clear and good breath sounds equally. No wheezing. No rhonchi. HEART: S1, S2. Regular rate and rhythm. ABDOMEN: Soft/non tender with no rebound tenderness. Bowel sounds were present. EXTREMITIES: No cyanosis, clubbing or edema. NEUROLOGIC: Alert and oriented x3. No focal deficit. No sensory deficit. PSYCHOSOCIAL: No signs of depression. INTEGUMENTARY: No open wounds. ASSESSMENT AND PLAN:58 yo M w/ckd,recurrent uti w/MDRO,multiple abx allergies,urinary retntion requiring self cath who a,so stopped doing self cath recently ,tx from osh for incontinence.. Bacteremia due to Escherichia coli -Completing the antibiotic course on the as per infectious disease E. coli UTI -Completing antibiotic therapy on the as per ID Urinary retention -Doing self-catheterization. Patient's insurance will cover supplies. Chronic kidney disease (CKD) stage G3b/A2 -Creatinine slightly went up today. Will request nephrology consultation while patient is in-house. Bilateral thyroid nodules -s/p biopsy -f/u pathology Homelessness -SW f/u Tobacco dependency -counselled -Nicotine patch Meth/cocaine abuse -counselled DVT prophylaxis: SCDs Disposition - CM on board for placement given need for IV antibiotics for 2 weeks.. Please not homelessness is the major barrier in discharging this patient. For the most part, he would need to complete the antibiotics in the hospital until Tuesday unless a penitentiary will open set for him. Discharge once thyroid biopsy results are available. Patient was seen in collaboration with Dr. Brannon. Result Diagram: 01/16/19 0643 01/16/19 0643 Results 24hrs Laboratory Tests Test 01/16/19 06:43 White Blood Count 14.2 H Red Blood Count 3.71 L Hemoglobin 9.7 L Hematocrit 31.0 L Mean Corpuscular Volume 83.6 Mean Corpuscular Hemoglobin 26.1 L Mean Corpuscular Hemoglobin Concent 31.3 L Red Cell Distribution Width 14.4 Platelet Count 332 Mean Platelet Volume 10.6 H Immature Granulocytes % 2.000 H Neutrophils % 58.8 Lymphocytes % 25.2 Monocytes % 10.0 Eosinophils % 3.0 Basophils % 1.0 Nucleated Red Blood Cells % 0.0 Immature Granulocytes # 0.290 H Neutrophils # 8.3 H Lymphocytes # 3.6 H Monocytes # 1.4 H Eosinophils # 0.4 Basophils # 0.1 Nucleated Red Blood Cells # 0.0 Sodium Level 139 Potassium Level 4.2 Chloride Level 105 Carbon Dioxide Level 27 Anion Gap 7 Blood Urea Nitrogen 42 H Creatinine 1.91 H Est Glomerular Filtrat Rate mL/min 36 L Glucose Level 117 Calcium Level 9.5 Magnesium Level 1.9 Exam/Review of Systems Exam Vitals Vital Signs Date Temp Pulse Resp B/P (MAP) Pulse Ox O2 O2 Flow FiO2 Time Delivery Rate 01/16/19 98.0 70 16 99/52 (68) 96 07:35 01/14/19 Room Air 15:08 Intake and Output 01/15/19 01/15/19 01/16/19 1515:00 23:00 07:00 IntakeIntake Total 50 ml OutputOutput Total 1400 ml 800 ml 675 ml BalanceBalance -1400 ml -750 ml -675 ml Results Results 24hrs Laboratory Tests Test 01/16/19 06:43 White Blood Count 14.2 H Red Blood Count 3.71 L Hemoglobin 9.7 L Hematocrit 31.0 L Mean Corpuscular Volume 83.6 Mean Corpuscular Hemoglobin 26.1 L Mean Corpuscular Hemoglobin Concent 31.3 L Red Cell Distribution Width 14.4 Platelet Count 332 Mean Platelet Volume 10.6 H Immature Granulocytes % 2.000 H Neutrophils % 58.8 Lymphocytes % 25.2 Monocytes % 10.0 Eosinophils % 3.0 Basophils % 1.0 Nucleated Red Blood Cells % 0.0 Immature Granulocytes # 0.290 H Neutrophils # 8.3 H Lymphocytes # 3.6 H Monocytes # 1.4 H Eosinophils # 0.4 Basophils # 0.1 Nucleated Red Blood Cells # 0.0 Sodium Level 139 Potassium Level 4.2 Chloride Level 105 Carbon Dioxide Level 27 Anion Gap 7 Blood Urea Nitrogen 42 H Creatinine 1.91 H Est Glomerular Filtrat Rate mL/min 36 L Glucose Level 117 Calcium Level 9.5 Magnesium Level 1.9 Medications Medication Current Medications Nicotine (Nicoderm 21 Mg/ 24hr) 1 patch DAILY TRANSDERM Last administered on 01/16/19 08:13; Admin Dose 1 PATCH; Start 01/06/19 at 01:00 Acetaminophen (Tylenol Tab) 650 mg Q6H PRN PO MILD PAIN(1-3)OR ELEVATED TEMP; Start 01/06/19 at 01:00 Acetaminophen/ Hydrocodone Bitart ([place] (5/325)) 1 tab Q6H PRN PO MODERATE PAIN LEVEL 4-6 Last administered on 01/15/19 14:44; Admin Dose 1 TAB; Start 01/06/19 at 01:00 Lorazepam (Ativan) 1 mg Q6H PRN IV ANXIETY Last administered on 01/14/19 21:45; Admin Dose 1 MG; Start 01/06/19 at 01:00 Ondansetron HCl (Zofran Inj) 4 mg Q6H PRN IV NAUSEA AND/OR VOMITING; Start at 01:00 Ranitidine HCl (Zantac) 150 mg BID PO Last administered on 01/16/19 08:14; Admin Dose 150 MG; Start 01/06/19 at 02:01 Meropenem/Sodium Chloride 50 ml @ 100 mls/hr Q12 IVPB Last administered on 01/16/19 08:14; Admin Dose 100 MLS/HR; Start 01/06/19 at 12:00 Calamine/Pramoxine (Caladryl Lotion) 1 applic Q2H PRN TOP itching; Start 01/08/19 at 11:30 Clotrimazole (Lotrimin Cr) 1 applic BID TOP Last administered on 01/15/19 09:18; Admin Dose 1 APPLIC; Start 01/08/19 at 21:00 Nicotine Polacrilex (Nicorette) 4 mg Q2H PRN BUCCAL cravings Last administered on 01/12/19 17:31; Admin Dose 4 MG; Start 01/10/19 at 11:00 Lactobacillus Acidophilus/ Rhamnosus (Culturelle) 1 cap BID PO Last administered on 01/16/19at 08:14; Admin Dose 1 CAP; Start 01/11/19 at 21:00 Albuterol (Ventolin Hfa) 2 puff Q6H RESP THERAPY PRN INH SHORTNESS OF BREATH; Start 01/11/19 at 15:00 Bisacodyl (Dulcolax) 10 mg DAILY PRN PO CONSTIPATION; Start 01/11/19 at 15:00 Multivitamins Therapeutic (Theragran) 1 tab DAILY PO Last administered on 01/16/19at 08:14; Admin Dose 1 TAB; Start 01/11/19 at 20:30 COLLINS SCHREIBER NP Jan 16, 2019 10:05
--- NOTE | 2019-01-16 11:29 | CONS ---
Assessment/Plan Assessment/Plan Hospital Course (Demo Recall) No acute changes, afebrile, nad Microbiology: Blood cultures negative since admission blood culture from another facility grew E. coli, resistant to Cipro and Levaquin Allergy: Penicillin, sulfa Antimicrobials: Meropenem Physical examination: This is well-developed middle-aged white man who is alert in no distress. Head atraumatic normocephalic sclera nonicteric. Neck is supple. Chest rise symmetrical breath sounds clear. Heart: S1-S2. Abdomen obese soft bowel sounds present. Extremities without cyanosis Assessment: 1. S/p E coli bacteremia per report from [facility] 2. Urinary retention 3. Chronic kidney disease 4. Homelessness 5. Polysubstance abuse 6. COPD Plan: Patient remains stable, continue abx for 3 more days, await for thyroid bx results Consultation Date/Type/Reason Admit Date/Time Jan 05, 2019 at 22:58 Initial Consult Date 01/06/19 Type of Consult id Requesting Provider: HOLLY MINER Date/Time of Note DATE: 01/16/19 TIME: 11:28 Exam/Review of Systems Exam Vitals Vital Signs Date Temp Pulse Resp B/P (MAP) Pulse Ox O2 O2 Flow FiO2 Time Delivery Rate 01/16/19 98.0 70 16 99/52 (68) 96 07:35 01/14/19 Room Air 15:08 Intake and Output 01/15/19 01/15/19 01/16/19 1515:00 23:00 07:00 IntakeIntake Total 50 ml OutputOutput Total 1400 ml 800 ml 675 ml BalanceBalance -1400 ml -750 ml -675 ml Results Result Diagram: 01/16/19 0643 01/16/19 0643 Results 24hrs Laboratory Tests Test 01/16/19 06:43 White Blood Count 14.2 H Red Blood Count 3.71 L Hemoglobin 9.7 L Hematocrit 31.0 L Mean Corpuscular Volume 83.6 Mean Corpuscular Hemoglobin 26.1 L Mean Corpuscular Hemoglobin Concent 31.3 L Red Cell Distribution Width 14.4 Platelet Count 332 Mean Platelet Volume 10.6 H Immature Granulocytes % 2.000 H Neutrophils % 58.8 Lymphocytes % 25.2 Monocytes % 10.0 Eosinophils % 3.0 Basophils % 1.0 Nucleated Red Blood Cells % 0.0 Immature Granulocytes # 0.290 H Neutrophils # 8.3 H Lymphocytes # 3.6 H Monocytes # 1.4 H Eosinophils # 0.4 Basophils # 0.1 Nucleated Red Blood Cells # 0.0 Sodium Level 139 Potassium Level 4.2 Chloride Level 105 Carbon Dioxide Level 27 Anion Gap 7 Blood Urea Nitrogen 42 H Creatinine 1.91 H Est Glomerular Filtrat Rate mL/min 36 L Glucose Level 117 Calcium Level 9.5 Magnesium Level 1.9 Medications Medication Current Medications Nicotine (Nicoderm 21 Mg/ 24hr) 1 patch DAILY TRANSDERM Last administered on 01/16/19 08:13; Admin Dose 1 PATCH; Start 01/06/19 at 01:00 Acetaminophen (Tylenol Tab) 650 mg Q6H PRN PO MILD PAIN(1-3)OR ELEVATED TEMP; Start 01/06/19 at 01:00 Acetaminophen/ Hydrocodone Bitart ([place] (5/325)) 1 tab Q6H PRN PO MODERATE PAIN LEVEL 4-6 Last administered on 01/15/19 14:44; Admin Dose 1 TAB; Start 01/06/19 at 01:00 Lorazepam (Ativan) 1 mg Q6H PRN IV ANXIETY Last administered on 01/14/19 21:45; Admin Dose 1 MG; Start 01/06/19 at 01:00 Ondansetron HCl (Zofran Inj) 4 mg Q6H PRN IV NAUSEA AND/OR VOMITING; Start 01/06/19 at 01:00 Ranitidine HCl (Zantac) 150 mg BID PO Last administered on 01/16/19 08:14; Admin Dose 150 MG; Start 01/06/19 at 02:01 Meropenem/Sodium Chloride 50 ml @ 100 mls/hr Q12 IVPB Last administered on 01/16/19at 08:14; Admin Dose 100 MLS/HR; Start 01/06/19 at 12:00 Calamine/Pramoxine (Caladryl Lotion) 1 applic Q2H PRN TOP itching; Start 01/08/19 at 11:30 Clotrimazole (Lotrimin Cr) 1 applic BID TOP Last administered on 01/15/19 09:18; Admin Dose 1 APPLIC; Start 01/08/19 at 21:00 Nicotine Polacrilex (Nicorette) 4 mg Q2H PRN BUCCAL cravings Last administered on 6/14/19at 17:31; Admin Dose 4 MG; Start 01/10/19 at 11:00 Lactobacillus Acidophilus/ Rhamnosus (Culturelle) 1 cap BID PO Last administered on 01/16/19at 08:14; Admin Dose 1 CAP; Start 01/11/19 at 21:00 Albuterol (Ventolin Hfa) 2 puff Q6H RESP THERAPY PRN INH SHORTNESS OF BREATH; Start 01/11/19 at 15:00 Bisacodyl (Dulcolax) 10 mg DAILY PRN PO CONSTIPATION; Start 01/11/19 at 15:00 Multivitamins Therapeutic (Theragran) 1 tab DAILY PO Last administered on 01/16/19at 08:14; Admin Dose 1 TAB; Start 01/11/19 at 20:30 JYOTI CRONIN NP Jan 16, 2019 11:29
[2019-01-16 13:58] VITALS: BP 115/64; PULSE 80; RESP 18
--- NOTE | 2019-01-16 15:28 | CONS ---
DATE OF ADMISSION: 01/05/2019 DATE OF CONSULTATION: 01/16/2019 TYPE OF CONSULTATION: Nephrology REASON FOR CONSULTATION: Acute kidney injury. PHYSICIAN REQUESTING CONSULT: Mary Schreiber NP HISTORY OF PRESENT ILLNESS: This is a 58-year-old male with a past medical history of UTI, history o f hypospadias and history of indwelling Saunders catheter, history of hypertension who presented to [facility] from an outside facility due to fevers, chills and body aches. The patient on admission was noted to have white count 19,000. The patient was treated for multidrug resistant U TI. In terms of patient's renal history, on admission the patient noted to have a creatinine of 2.44 mg p ast year. The patient was seen by urologist, Dr. Cervantes, as renal ultrasound shows evidence of bila teral hydronephrosis. The patient has been receiving intermittent catheterization with a gradual sta bilization and improvement in renal function. There have been no reports of any hemoptysis, hemateme sis or hematochezia. PAST MEDICAL HISTORY: As stated above, history of urinary retention, history of UTI, history of home lessness, history of hypertension. ALLERGIES: PLEASE SEE LIST. PAST SURGICAL HISTORY: The patient had multiple ureteral surgeries. FAMILY HISTORY: No family history of kidney disease. SOCIAL HISTORY: Previous history of drug use. MEDICATIONS: Have been reviewed. REVIEW OF SYSTEMS: A 14-point review of systems was conducted. Pertinent positives stated in the HP I, otherwise negative. PHYSICAL EXAMINATION: VITAL SIGNS: Blood pressure is 99/52, respirations 16, pulse 70, temperature 98.0. HEENT: Head is normocephalic. NECK: Supple. HEART: Regular rate. LUNGS: Show diminished breath sounds at the base. ABDOMEN: Soft, nontender to palpation without rebound or guarding. EXTREMITIES: Negative for clubbing, cyanosis, no edema. DERMATOLOGIC: No rashes. MUSCULOSKELETAL: No joint effusions. NEUROLOGIC: No change in exam. LABORATORY DATA: Has been reviewed. IMAGING STUDIES: Have been reviewed. ASSESSMENT AND PLAN: This is a 58-year-old male with: 1. Nonoliguric acute kidney injury with unknown baseline creatinine. Etiology of acute kidney injur y is likely secondary to obstructive uropathy, possible hemodynamics. The patient's renal function h as improved with intermittent catheterization. Renal ultrasound does show evidence of bilateral hydr onephrosis. Recommendation at this point is to check urinalysis with microanalysis, check urine elec trolytes. We will repeat a renal ultrasound to see if hydronephrosis has resolved. Monitor renal fu nction closely. If renal function continues to decline and hydronephrosis still present on imaging s tudies, the patient may require indwelling Saunders catheter. 2. Bilateral hydronephrosis. Continue current medical management. Continue intermittent catheteriz ation. We will follow up with urology. 3. Multidrug resistant infection. Continue current antibiotic regimen. 4. Anemia. Continue to monitor hemoglobin and hematocrit levels. 5. Mineral bone disorder, monitor calcium and phosphorus levels. 6. Bacteremia sepsis secondary to E. coli. Continue antibiotic therapy. 7. Bilateral thyroid nodules. The patient is status post , follow up pathology. Thank you, Mary, for this very interesting consult. It will be a pleasure to follow patient with yo u throughout the hospital course. Dictated By: YESSENIA BROTHERS DO NR/NTS Conf#: [id number] DID#: [id number] CC: MARY SCHREIBER INCIDENT MANAGER;*EndCC*
[2019-01-16 20:00] VITALS: BP 109/61; PULSE 84; RESP 18
[2019-01-16] MEDS: LORAZEPAM 2 MG INJ IV PRN (22:23)
[2019-01-17 02:00] VITALS: BP 91/50; PULSE 78; RESP 16
[2019-01-17] MEDS: HYDROCODONE/APAP (5/325) TAB PO PRN (03:40)
[2019-01-17 08:00] VITALS: BP 125/75; PULSE 61; RESP 18
[2019-01-17] MEDS: MULTIVITAMINS THERAPEUTIC TAB PO SCH (08:09)
[2019-01-17] MEDS: NICOTINE (21 MG/24 HR) PATCH TRANSDERM SCH (08:09)
[2019-01-17] MEDS: RANITIDINE 150 MG TAB PO SCH ×2 (08:09→20:17)
[2019-01-17] MEDS: LACTOBACILLUS RHAMNOSUS CAP PO SCH ×2 (08:09→20:17)
[2019-01-17] MEDS: MEROPENEM 1 GM/50ML(PMX) 50 ML IVPB SCH ×2 (08:10→20:17)
[2019-01-17] MEDS: CLOTRIMAZOLE 1% 30 GM CR TOP SCH ×2 (08:26→20:18)
[2019-01-17] MEDS ORDERED: LACT1CAP28 PO (09:03)
[2019-01-17] MEDS ORDERED: [UNRECOGNIZED DRUG - SUPPLY] (09:03)
[2019-01-17] MEDS ORDERED: MULTI PO (09:03)
[2019-01-17] MEDS ORDERED: [UNRECOGNIZED DRUG - CODE] TP (09:03)
--- NOTE | 2019-01-17 09:15 | PN ---
Date/Time of Note Date/Time of Note DATE: 01/17/19 TIME: 09:13 Assessment/Plan VTE Prophylaxis Risk score (from Ns)>0 risk: 1 SCD applied (from Ns): Yes Pharmacological prophylaxis: NA/contraindicated Pharm contraindication: low risk/ambulating Lines/Catheters IV C[facility]ter Type (from [facility] Peripheral IV Urinary Cath still in place: No Assessment/Plan Hospital Course SUBJECTIVE: No acute overnight episodes. OBJECTIVE: Vital signs-see below PHYSICAL EXAM: Constitutional: Adequately built,not in acute distress. HEENT: Head atraumatic and normocephalic. Eyes: Extraocular muscles intact. Anicteric sclerae. Pupils equal bilaterally, reactive to light. NECK: Supple without lymph node. CHEST: Clear and good breath sounds equally. No wheezing. No rhonchi. HEART: S1, S2. Regular rate and rhythm. ABDOMEN: Soft/non tender with no rebound tenderness. Bowel sounds were present. EXTREMITIES: No cyanosis, clubbing or edema. NEUROLOGIC: Alert and oriented x3. No focal deficit. No sensory deficit. PSYCHOSOCIAL: No signs of depression. INTEGUMENTARY: No open wounds. ASSESSMENT AND PLAN:58 yo M w/ckd,recurrent uti w/MDRO,multiple abx allergies,urinary retntion requiring self cath who a,so stopped doing self cath recently ,tx from [facility] for incontinence.. Bacteremia due to Escherichia coli -Completing the antibiotic course on the as per infectious disease E. coli UTI -Completing antibiotic therapy on the as per ID Urinary retention -Doing self-catheterization. Patient's insurance will cover supplies. Chronic kidney disease (CKD) stage G3b/A2 -Creatinine slightly went up today. Will request nephrology consultation while patient is in-house. Bilateral nodular goiter -s/p biopsy -benign,oupt observation Homelessness -SW f/u Tobacco dependency -counselled -Nicotine patch Meth/cocaine abuse -counselled DVT prophylaxis: SCDs Disposition - DC planning on Tuesday once abx course completed.Pt homeless and plans to return back to his car. Patient was seen in collaboration with Dr. Brannon. Result Diagram: 01/17/1951001/17/19 0511 Results 24hrs Laboratory Tests Test 01/16/19 13:35 01/17/19 05:11 Urine Color YELLOW Urine Clarity SLIGHTLY CLOUDY A Urine pH 5.0 Urine Specific [place] 1.012 Urine Ketones NEGATIVE Urine Nitrite NEGATIVE Urine Bilirubin NEGATIVE Urine Urobilinogen NEGATIVE Urine Leukocyte Esterase TRACE A Urine Microscopic RBC 1 Urine Microscopic WBC 13 H Urine Hemoglobin NEGATIVE Urine Random Creatinine 52.11 Urine Random Sodium 89 Urine Glucose NEGATIVE Urine Total Protein 19.0 H White Blood Count 14.1 H Red Blood Count 3.63 L Hemoglobin 9.5 L Hematocrit 30.4 L Mean Corpuscular Volume 83.7 Mean Corpuscular Hemoglobin 26.2 L Mean Corpuscular Hemoglobin Concent 31.3 L Red Cell Distribution Width 14.1 Platelet Count 325 Mean Platelet Volume 10.8 H Immature Granulocytes % 2.000 H Neutrophils % 55.7 Lymphocytes % 25.7 Monocytes % 11.9 H Eosinophils % 3.7 Basophils % 1.0 Nucleated Red Blood Cells % 0.0 Immature Granulocytes # 0.280 H Neutrophils # 7.9 H Lymphocytes # 3.6 H Monocytes # 1.7 H Eosinophils # 0.5 Basophils # 0.1 Nucleated Red Blood Cells # 0.0 Sodium Level 140 Potassium Level 4.7 Chloride Level 105 Carbon Dioxide Level 27 Anion Gap 8 Blood Urea Nitrogen 43 H Creatinine 1.74 H Est Glomerular Filtrat Rate mL/min 41 L Glucose Level 106 Calcium Level 9.5 Phosphorus Level 4.3 Magnesium Level 2.0 Exam/Review of Systems Exam Vitals Vital Signs Date Temp Pulse Resp B/P (MAP) Pulse Ox O2 O2 Flow FiO2 Time Delivery Rate 01/17/19 97.9 61 18 125/75 97 08:00 (92) 01/17/19 Room Air 02:00 Intake and Output 01/16/19 01/16/19 01/17/19 1515:00 23:00 07:00 IntakeIntake Total 100 ml OutputOutput Total 575 ml 1450 ml BalanceBalance -575 ml 100 ml -1450 ml Results Results 24hrs Laboratory Tests Test 01/16/19 13:35 01/17/19 05:11 Urine Color YELLOW Urine Clarity SLIGHTLY CLOUDY A Urine pH 5.0 Urine Specific [place] 1.012 Urine Ketones NEGATIVE Urine Nitrite NEGATIVE Urine Bilirubin NEGATIVE Urine Urobilinogen NEGATIVE Urine Leukocyte Esterase TRACE A Urine Microscopic RBC 1 Urine Microscopic WBC 13 H Urine Hemoglobin NEGATIVE Urine Random Creatinine 52.11 Urine Random Sodium 89 Urine Glucose NEGATIVE Urine Total Protein 19.0 H White Blood Count 14.1 H Red Blood Count 3.63 L Hemoglobin 9.5 L Hematocrit 30.4 L Mean Corpuscular Volume 83.7 Mean Corpuscular Hemoglobin 26.2 L Mean Corpuscular Hemoglobin Concent 31.3 L Red Cell Distribution Width 14.1 Platelet Count 325 Mean Platelet Volume 10.8 H Immature Granulocytes % 2.000 H Neutrophils % 55.7 Lymphocytes % 25.7 Monocytes % 11.9 H Eosinophils % 3.7 Basophils % 1.0 Nucleated Red Blood Cells % 0.0 Immature Granulocytes # 0.280 H Neutrophils # 7.9 H Lymphocytes # 3.6 H Monocytes # 1.7 H Eosinophils # 0.5 Basophils # 0.1 Nucleated Red Blood Cells # 0.0 Sodium Level 140 Potassium Level 4.7 Chloride Level 105 Carbon Dioxide Level 27 Anion Gap 8 Blood Urea Nitrogen 43 H Creatinine 1.74 H Est Glomerular Filtrat Rate mL/min 41 L Glucose Level 106 Calcium Level 9.5 Phosphorus Level 4.3 Magnesium Level 2.0 Medications Medication Current Medications Nicotine (Nicoderm 21 Mg/ 24hr) 1 patch DAILY TRANSDERM Last administered on 01/17/19 08:09; Admin Dose 1 PATCH; Start 01/06/19 at 01:00 Acetaminophen (Tylenol Tab) 650 mg Q6H PRN PO MILD PAIN(1-3)OR ELEVATED TEMP; Start 01/06/19 at 01:00 Acetaminophen/ Hydrocodone Bitart ([place] (5/325)) 1 tab Q6H PRN PO MODERATE PAIN LEVEL 4-6 Last administered on 01/17/19 03:40; Admin Dose 1 TAB; Start 01/06/19 at 01:00 Lorazepam (Ativan) 1 mg Q6H PRN IV ANXIETY Last administered on 01/16/19at 22:23; Admin Dose 1 MG; Start 01/06/19 at 01:00 Ondansetron HCl (Zofran Inj) 4 mg Q6H PRN IV NAUSEA AND/OR VOMITING; Start 01/06/19 at 01:00 Ranitidine HCl (Zantac) 150 mg BID PO Last administered on 01/17/19 08:09; Admin Dose 150 MG; Start 01/06/19 at 02:01 Meropenem/Sodium Chloride 50 ml @ 100 mls/hr Q12 IVPB Last administered on 01/17/19 08:10; Admin Dose 100 MLS/HR; Start 01/06/19 at 12:00 Calamine/Pramoxine (Caladryl Lotion) 1 applic Q2H PRN TOP itching; Start 01/08/19 at 11:30 Clotrimazole (Lotrimin Cr) 1 applic BID TOP Last administered on 01/15/19at 09:18; Admin Dose 1 APPLIC; Start 01/08/19 at 21:00 Nicotine Polacrilex (Nicorette) 4 mg Q2H PRN BUCCAL cravings Last administered on 01/12/19at 17:31; Admin Dose 4 MG; Start 01/10/19 at 11:00 Lactobacillus Acidophilus/ Rhamnosus (Culturelle) 1 cap BID PO Last adminis tered on 01/17/19 08:09; Admin Dose 1 CAP; Start 01/11/19 at 21:00 Albuterol (Ventolin Hfa) 2 puff Q6H RESP THERAPY PRN INH SHORTNESS OF BREATH; Start 01/11/19 at 15:00 Bisacodyl (Dulcolax) 10 mg DAILY PRN PO CONSTIPATION; Start 01/11/19 at 15:00 Multivitamins Therapeutic (Theragran) 1 tab DAILY PO Last administered on 01/17/19 08:09; Admin Dose 1 TAB; Start 01/11/19 at 20:30 COLLINS SCHREIBER NP Jan 17, 2019 09:15
--- NOTE | 2019-01-17 10:44 | CONS ---
Assessment/Plan Assessment/Plan Hospital Course (Demo Recall) No acute changes per report Microbiology: Blood cultures negative since admission blood culture from another facility grew E. coli, resistant to Cipro and Levaquin Allergy: Penicillin, sulfa Antimicrobials: Meropenem Physical examination: This is well-developed middle-aged white man who is alert in no distress. Head atraumatic normocephalic sclera nonicteric. Neck is supple. Chest rise symmetrical breath sounds clear. Heart: S1-S2. Abdomen obese soft bowel sounds present. Extremities without cyanosis Assessment: 1. S/p E coli bacteremia per report from [facility] 2. Urinary retention 3. Chronic kidney disease 4. Homelessness 5. Polysubstance abuse 6. COPD 7. Thyroid goiter Plan: Patient remains stable, nephrology rec-s noted, renal US noted, continue abx for 2 more days Consultation Date/Type/Reason Admit Date/Time Jan 05, 2019 at 22:58 Initial Consult Date 01/06/19 Type of Consult id Requesting Provider: HOLLY MINER Date/Time of Note DATE: 01/17/19 TIME: 10:41 Exam/Review of Systems Exam Vitals Vital Signs Date Temp Pulse Resp B/P (MAP) Pulse Ox O2 O2 Flow FiO2 Time Delivery Rate 01/17/19 97.9 61 18 125/75 97 08:00 (92) 01/17/19 Room Air 02:00 Intake and Output 01/16/19 01/16/19 01/17/19 1515:00 23:00 07:00 IntakeIntake Total 100 ml OutputOutput Total 575 ml 1450 ml BalanceBalance -575 ml 100 ml -1450 ml Results Result Diagram: 01/17/19 0511 01/17/19 0511 Results 24hrs Laboratory Tests Test 01/16/19 13:35 01/17/19 05:11 Urine Color YELLOW Urine Clarity SLIGHTLY CLOUDY A Urine pH 5.0 Urine Specific [place] 1.012 Urine Ketones NEGATIVE Urine Nitrite NEGATIVE Urine Bilirubin NEGATIVE Urine Urobilinogen NEGATIVE Urine Leukocyte Esterase TRACE A Urine Microscopic RBC 1 Urine Microscopic WBC 13 H Urine Hemoglobin NEGATIVE Urine Random Creatinine 52.11 Urine Random Sodium 89 Urine Glucose NEGATIVE Urine Total Protein 19.0 H White Blood Count 14.1 H Red Blood Count 3.63 L Hemoglobin 9.5 L Hematocrit 30.4 L Mean Corpuscular Volume 83.7 Mean Corpuscular Hemoglobin 26.2 L Mean Corpuscular Hemoglobin Concent 31.3 L Red Cell Distribution Width 14.1 Platelet Count 325 Mean Platelet Volume 10.8 H Immature Granulocytes % 2.000 H Neutrophils % 55.7 Lymphocytes % 25.7 Monocytes % 11.9 H Eosinophils % 3.7 Basophils % 1.0 Nucleated Red Blood Cells % 0.0 Immature Granulocytes # 0.280 H Neutrophils # 7.9 H Lymphocytes # 3.6 H Monocytes # 1.7 H Eosinophils # 0.5 Basophils # 0.1 Nucleated Red Blood Cells # 0.0 Sodium Level 140 Potassium Level 4.7 Chloride Level 105 Carbon Dioxide Level 27 Anion Gap 8 Blood Urea Nitrogen 43 H Creatinine 1.74 H Est Glomerular Filtrat Rate mL/min 41 L Glucose Level 106 Calcium Level 9.5 Phosphorus Level 4.3 Magnesium Level 2.0 Medications Medication Current Medications Nicotine (Nicoderm 21 Mg/ 24hr) 1 patch DAILY TRANSDERM Last administered on 01/17/19at 08:09; Admin Dose 1 PATCH; Start 01/06/19 at 01:00 Acetaminophen (Tylenol Tab) 650 mg Q6H PRN PO MILD PAIN(1-3)OR ELEVATED TEMP; Start 01/06/19 at 01:00 Acetaminophen/ Hydrocodone Bitart ([place] (5/325)) 1 tab Q6H PRN PO MODERATE PAIN LEVEL 4-6 Last administered on 01/17/19at 03:40; Admin Dose 1 TAB; Start 01/06/19 at 01:00 Lorazepam (Ativan) 1 mg Q6H PRN IV ANXIETY Last administered on 01/16/19at 22:23; Admin Dose 1 MG; Start 01/06/19 at 01:00 Ondansetron HCl (Zofran Inj) 4 mg Q6H PRN IV NAUSEA AND/OR VOMITING; Start 01/06/19 at 01:00 Ranitidine HCl (Zantac) 150 mg BID PO Last administered on 01/17/19at 08:09; Admin Dose 150 MG; Start 01/06/19 at 02:01 Meropenem/Sodium Chloride 50 ml @ 100 mls/hr Q12 IVPB Last administered on 01/17/19at 08:10; Admin Dose 100 MLS/HR; Start 01/06/19 at 12:00 Calamine/Pramoxine (Caladryl Lotion) 1 applic Q2H PRN TOP itching; Start 01/08/19 at 11:30 Clotrimazole (Lotrimin Cr) 1 applic BID TOP Last administered on 01/15/19at 09:18; Admin Dose 1 APPLIC; Start 01/08/19 at 21:00 Nicotine Polacrilex (Nicorette) 4 mg Q2H PRN BUCCAL cravings Last administered on 01/12/19at 17:31; Admin Dose 4 MG; Start 01/10/19 at 11:00 Lactobacillus Acidophilus/ Rhamnosus (Culturelle) 1 cap BID PO Last administered on 01/17/19 08:09; Admin Dose 1 CAP; Start 01/11/19 at 21:00 Albuterol (Ventolin Hfa) 2 puff Q6H RESP THERAPY PRN INH SHORTNESS OF BREATH; Start 01/11/19 at 15:00 Bisacodyl (Dulcolax) 10 mg DAILY PRN PO CONSTIPATION; Start 01/11/19 at 15:00 Multivitamins Therapeutic (Theragran) 1 tab DAILY PO Last administered on 12/30 04/19at 08:09; Admin Dose 1 TAB; Start 01/11/19 at 20:30 JYOTI CRONIN NP Jan 17, 2019 10:44
--- NOTE | 2019-01-17 12:37 | PN ---
DATE: 01/17/2019 SUBJECTIVE: The patient is stable, no events overnight. OBJECTIVE: VITAL SIGNS: Blood pressure is 125/75, pulse 61, respirations 18, temperature 97.9. HEENT: Head is normocephalic. NECK: Supple. HEART: Regular rate. LUNGS: Show diminished breath sounds at the base. ABDOMEN: Soft, nontender to palpation without rebound or guarding. EXTREMITIES: Negative for clubbing, cyanosis. No edema. DERMATOLOGIC: No rashes. MUSCULOSKELETAL: No joint effusion. NEUROLOGIC: No change in exam. MEDICATIONS: Reviewed. LABORATORY DATA: Reviewed. IMAGING STUDIES: Reviewed. ASSESSMENT AND PLAN: 1. Nonoliguric acute kidney injury with unknown baseline creatinine. Etiology of acute kidney injur y is secondary to obstructive uropathy, possible hemodynamics. The patient's renal function has been fluctuating, but overall improved. The patient's renal ultrasound continues to show stable bilatera l hydronephrosis. The patient is undergoing intermittent catheterization. At this point, continue t o monitor closely. Continue supportive care, renally dose all medications. We may consider permanen t Saunders catheter placement if renal function should further decline. 2. Bilateral hydronephrosis. Etiology is likely secondary to urinary retention. Continue intermitt ent catheterization. Follow up with urology. 3. Anemia. Continue to monitor hemoglobin and hematocrit levels. 4. Mineral bone disorder. Monitor calcium and phosphorus levels. 5. Sepsis secondary to E. coli. Continue current antibiotic regimen. 6. Thyroid nodule. Continue to monitor. Workup is ongoing. 7. Urinary tract infection, multidrug resistant. Continue current antibiotic regimen. Dictated By: YESSENIA BROTHERS DO NR/NTS Conf#: [id number] DID#: [id number] CC: MADISON GOODE MD; YESSENIA BROTHERS DO; HOLLY MINER MD;*EndCC*
[2019-01-17 13:48] VITALS: BP 127/75; PULSE 77; RESP 18
[2019-01-17 19:30] VITALS: BP 115/65; PULSE 85; RESP 19
[2019-01-18 02:15] VITALS: BP 107/66; PULSE 69; RESP 18
[2019-01-18] MEDS: HYDROCODONE/APAP (5/325) TAB PO PRN (03:21)
[2019-01-18 07:28] VITALS: BP 118/74; PULSE 64; RESP 18
[2019-01-18] MEDS: RANITIDINE 150 MG TAB PO SCH ×2 (08:40→21:33)
[2019-01-18] MEDS: LACTOBACILLUS RHAMNOSUS CAP PO SCH ×2 (08:40→21:33)
[2019-01-18] MEDS: NICOTINE (21 MG/24 HR) PATCH TRANSDERM SCH (08:40)
[2019-01-18] MEDS: MULTIVITAMINS THERAPEUTIC TAB PO SCH (08:40)
[2019-01-18] MEDS: CLOTRIMAZOLE 1% 30 GM CR TOP SCH ×2 (08:40→21:00)
[2019-01-18] MEDS: MEROPENEM 1 GM/50ML(PMX) 50 ML IVPB SCH ×2 (09:18→22:22)
--- NOTE | 2019-01-18 10:28 | PN ---
DATE: 01/18/2019 SUBJECTIVE: The patient is stable. No events overnight. OBJECTIVE: VITAL SIGNS: Blood pressure is 118/74, pulse 64, respiration 18, temperature 97.9. HEENT: Head is normocephalic. NECK: Supple. HEART: Regular rate. LUNGS: Show diminished breath sounds at the base. ABDOMEN: Soft, nontender to palpation without rebound or guarding. EXTREMITIES: Negative for clubbing, cyanosis, no edema. DERMATOLOGIC: No rashes. MUSCULOSKELETAL: No joint effusion. NEUROLOGIC: No change in exam. MEDICATIONS: The patient's medications have been reviewed. LABORATORY DATA: Has been reviewed. IMAGING STUDIES: Have been reviewed. ASSESSMENT AND PLAN: 1. Nonoliguric acute kidney injury with unknown baseline creatinine. Etiology of LADAN is secondary t o obstructive uropathy hemodynamics. The patient's renal function has slowly been improving. Contin ue current treatment plans, supportive care, renally dose all meds. Continue intermittent catheteriza tion. 2. Bilateral hydronephrosis secondary to urinary retention. The patient will require continuous int ermittent catheterization. Continue to monitor. Follow up with urology. 3. Anemia. Continue to monitor hemoglobin and hematocrit levels. 4. Mineral bone disorder, monitor calcium and phosphorus levels. 5. Sepsis secondary to Escherichia coli. Continue current antibiotic regimen. 6. Thyroid nodule status post biopsy. Workup ongoing. Continue to monitor. Dictated By: YESSENIA LOWRY/MICHAEL Conf#: [id number] DID#: [id number] CC: MADISON GOODE MD; HOLLY MINER MD;*EndCC*
[2019-01-18] MEDS: LORAZEPAM 2 MG INJ IV PRN (10:45)
--- NOTE | 2019-01-18 13:03 | PN ---
Date/Time of Note Date/Time of Note DATE: 01/18/19 TIME: 13:02 Assessment/Plan VTE Prophylaxis Risk score (from Ns)>0 risk: 1 SCD applied (from Ns): Yes Pharmacological prophylaxis: NA/contraindicated Pharm contraindication: low risk/ambulating Lines/Catheters [facility] Saline Lock Urinary Cath still in place: No Assessment/Plan Hospital Course SUBJECTIVE: No acute overnight episodes. OBJECTIVE: Vital signs-see below PHYSICAL EXAM: Constitutional: Adequately built,not in acute distress. HEENT: Head atraumatic and normocephalic. Eyes: Extraocular muscles intact. Anicteric sclerae. Pupils equal bilaterally, reactive to light. NECK: Supple without lymph node. CHEST: Clear and good breath sounds equally. No wheezing. No rhonchi. HEART: S1, S2. Regular rate and rhythm. ABDOMEN: Soft/non tender with no rebound tenderness. Bowel sounds were present. EXTREMITIES: No cyanosis, clubbing or edema. NEUROLOGIC: Alert and oriented x3. No focal deficit. No sensory deficit. PSYCHOSOCIAL: No signs of depression. INTEGUMENTARY: No open wounds. ASSESSMENT AND PLAN:58 yo M w/ckd,recurrent uti w/MDRO,multiple abx allergies,urinary retntion requiring self cath who a,so stopped doing self cath recently ,tx from osh for incontinence.. Bacteremia due to Escherichia coli -Completing the antibiotic course on the as per infectious disease E. coli UTI -Completing antibiotic therapy on the as per ID Urinary retention -Doing self-catheterization. Patient's insurance will cover supplies. Chronic kidney disease (CKD) stage G3b/A2 -Creatinine slightly went up today. Will request nephrology consultation while patient is in-house. Bilateral nodular goiter -s/p biopsy -benign,oupt observation Homelessness -SW f/u Tobacco dependency -counselled -Nicotine patch Meth/cocaine abuse -counselled DVT prophylaxis: SCDs Disposition - DC planning on Tuesday once abx course completed.Pt homeless ,SW to assist w/nursing home info. Patient was seen in collaboration with Dr. Brannon. Result Diagram: 01/18/19 0617 01/18/19 0617 Results 24hrs Laboratory Tests Test 01/18/19 06:17 White Blood Count 12.6 H Red Blood Count 3.62 L Hemoglobin 9.6 L Hematocrit 29.9 L Mean Corpuscular Volume 82.6 Mean Corpuscular Hemoglobin 26.5 L Mean Corpuscular Hemoglobin Concent 32.1 Red Cell Distribution Width 14.3 Platelet Count 300 Mean Platelet Volume 10.9 H Immature Granulocytes % 1.800 H Neutrophils % 51.1 Lymphocytes % 29.3 Monocytes % 12.1 H Eosinophils % 4.3 Basophils % 1.4 Nucleated Red Blood Cells % 0.0 Immature Granulocytes # 0.230 H Neutrophils # 6.4 Lymphocytes # 3.7 H Monocytes # 1.5 H Eosinophils # 0.5 Basophils # 0.2 H Nucleated Red Blood Cells # 0.0 Sodium Level 141 Potassium Level 4.8 Chloride Level 107 Carbon Dioxide Level 27 Anion Gap 7 Blood Urea Nitrogen 41 H Creatinine 1.63 H Est Glomerular Filtrat Rate mL/min 44 L Glucose Level 113 Calcium Level 9.1 Phosphorus Level 4.6 Magnesium Level 2.1 Exam/Review of Systems Exam Vitals Vital Signs Date Temp Pulse Resp B/P (MAP) Pulse Ox O2 O2 Flow FiO2 Time Delivery Rate 01/18/19 97.9 64 18 118/74 96 07:28 (89) 01/17/19 Room Air 13:48 Intake and Output 01/17/19 01/17/19 01/18/19 1515:00 23:00 07:00 IntakeIntake Total 50 ml 50 ml OutputOutput Total 1290 ml 525 ml 625 ml BalanceBalance -1240 ml -475 ml -625 ml Results Results 24hrs Laboratory Tests Test 01/18/19 06:17 White Blood Count 12.6 H Red Blood Count 3.62 L Hemoglobin 9.6 L Hematocrit 29.9 L Mean Corpuscular Volume 82.6 Mean Corpuscular Hemoglobin 26.5 L Mean Corpuscular Hemoglobin Concent 32.1 Red Cell Distribution Width 14.3 Platelet Count 300 Mean Platelet Volume 10.9 H Immature Granulocytes % 1.800 H Neutrophils % 51.1 Lymphocytes % 29.3 Monocytes % 12.1 H Eosinophils % 4.3 Basophils % 1.4 Nucleated Red Blood Cells % 0.0 Immature Granulocytes # 0.230 H Neutrophils # 6.4 Lymphocytes # 3.7 H Monocytes # 1.5 H Eosinophils # 0.5 Basophils # 0.2 H Nucleated Red Blood Cells # 0.0 Sodium Level 141 Potassium Level 4.8 Chloride Level 107 Carbon Dioxide Level 27 Anion Gap 7 Blood Urea Nitrogen 41 H Creatinine 1.63 H Est Glomerular Filtrat Rate mL/min 44 L Glucose Level 113 Calcium Level 9.1 Phosphorus Level 4.6 Magnesium Level 2.1 Medications Medication Current Medications Nicotine (Nicoderm 21 Mg/ 24hr) 1 patch DAILY TRANSDERM Last administered on 01/18/19 08:40; Admin Dose 1 PATCH; Start 01/06/19 at 01:00 Acetaminophen (Tylenol Tab) 650 mg Q6H PRN PO MILD PAIN(1-3)OR ELEVATED TEMP; Start 01/06/19 at 01:00 Acetaminophen/ Hydrocodone Bitart ([place] (5/325)) 1 tab Q6H PRN PO MODERATE PAIN LEVEL 4-6 Last administered on 01/18/19 03:21; Admin Dose 1 TAB; Start 01/06/19 at 01:00 Lorazepam (Ativan) 1 mg Q6H PRN IV ANXIETY Last administered on 01/18/19 10:45; Admin Dose 1 MG; Start 01/06/19 at 01:00 Ondansetron HCl (Zofran Inj) 4 mg Q6H PRN IV NAUSEA AND/OR VOMITING; Start 01/06/19 at 01:00 Ranitidine HCl (Zantac) 150 mg BID PO Last administered on 01/18/19 08:40; Admin Dose 150 MG; Start 01/06/19 at 02:01 Meropenem/Sodium Chloride 50 ml @ 100 mls/hr Q12 IVPB Last administered on 01/18/19 09:18; Admin Dose 100 MLS/HR; Start 01/06/19 at 12:00 Calamine/Pramoxine (Caladryl Lotion) 1 applic Q2H PRN TOP itching; Start 01/08/19 at 11:30 Clotrimazole (Lotrimin Cr) 1 applic BID TOP Last administered on 01/18/19 08:40; Admin Dose 1 APPLIC; Start 01/08/19 at 21:00 Nicotine Polacrilex (Nicorette) 4 mg Q2H PRN BUCCAL cravings Last administered on 01/12/19 17:31; Admin Dose 4 MG; Start 01/10/19 at 11:00 Lactobacillus Acidophilus/ Rhamnosus (Culturelle) 1 cap BID PO Last administered on 01/18/19 08:40; Admin Dose 1 CAP; Start 01/11/19 at 21:00 Albuterol (Ventolin Hfa) 2 puff Q6H RESP THERAPY PRN INH SHORTNESS OF BREATH; Start 01/11/19 at 15:00 Bisacodyl (Dulcolax) 10 mg DAILY PRN PO CONSTIPATION; Start 01/11/19 at 15:00 Multivitamins Therapeutic (Theragran) 1 tab DAILY PO Last administered on 01/18/19at 08:40; Admin Dose 1 TAB; Start 01/11/19 at 20:30 COLLINS SCHREIBER NP Jan 18, 2019 13:03
--- NOTE | 2019-01-18 13:42 | CONS ---
Assessment/Plan Assessment/Plan Hospital Course (Demo Recall) No acute changes per report. Patient is sleeping, looks comfortable, no fevers overnight Microbiology: Blood cultures negative since admission blood culture from another facility grew E. coli, resistant to Cipro and Levaquin Allergy: Penicillin, sulfa Antimicrobials: Meropenem Physical examination: This is well-developed middle-aged white man who is alert in no distress. Head atraumatic normocephalic sclera nonicteric. Neck is supple. Chest rise symmetrical breath sounds clear. Heart: S1-S2. Abdomen obese soft bowel sounds present. Extremities without cyanosis Assessment: 1. S/p E coli bacteremia per report from [facility] 2. Urinary retention 3. Chronic kidney disease 4. Homelessness 5. Polysubstance abuse 6. COPD 7. Thyroid goiter Plan: Patient remains stable, completing antibiotics, last dose tomorrow Consultation Date/Type/Reason Admit Date/Time Jan 05, 2019 at 22:58 Initial Consult Date 01/06/19 Type of Consult id Requesting Provider: HOLLY MINER Date/Time of Note DATE: 01/18/19 TIME: 13:41 Exam/Review of Systems Exam Vitals Vital Signs Date Temp Pulse Resp B/P (MAP) Pulse Ox O2 O2 Flow FiO2 Time Delivery Rate 01/18/19 97.9 64 18 118/74 96 07:28 (89) 01/17/19 Room Air 13:48 Intake and Output 01/17/19 01/17/19 01/18/19 1515:00 23:00 07:00 IntakeIntake Total 50 ml 50 ml OutputOutput Total 1290 ml 525 ml 625 ml BalanceBalance -1240 ml -475 ml -625 ml Results Result Diagram: 01/18/19 0617 01/18/19 0617 Results 24hrs Laboratory Tests Test 01/18/19 06:17 White Blood Count 12.6 H Red Blood Count 3.62 L Hemoglobin 9.6 L Hematocrit 29.9 L Mean Corpuscular Volume 82.6 Mean Corpuscular Hemoglobin 26.5 L Mean Corpuscular Hemoglobin Concent 32.1 Red Cell Distribution Width 14.3 Platelet Count 300 Mean Platelet Volume 10.9 H Immature Granulocytes % 1.800 H Neutrophils % 51.1 Lymphocytes % 29.3 Monocytes % 12.1 H Eosinophils % 4.3 Basophils % 1.4 Nucleated Red Blood Cells % 0.0 Immature Granulocytes # 0.230 H Neutrophils # 6.4 Lymphocytes # 3.7 H Monocytes # 1.5 H Eosinophils # 0.5 Basophils # 0.2 H Nucleated Red Blood Cells # 0.0 Sodium Level 141 Potassium Level 4.8 Chloride Level 107 Carbon Dioxide Level 27 Anion Gap 7 Blood Urea Nitrogen 41 H Creatinine 1.63 H Est Glomerular Filtrat Rate mL/min 44 L Glucose Level 113 Calcium Level 9.1 Phosphorus Level 4.6 Magnesium Level 2.1 Medications Medication Current Medications Nicotine (Nicoderm 21 Mg/ 24hr) 1 patch DAILY TRANSDERM Last administered on 01/18/19 08:40; Admin Dose 1 PATCH; Start 01/06/19 at 01:00 Acetaminophen (Tylenol Tab) 650 mg Q6H PRN PO MILD PAIN(1-3)OR ELEVATED TEMP; Start 01/06/19 at 01:00 Acetaminophen/ Hydrocodone Bitart ([place] (5/325)) 1 tab Q6H PRN PO MODERATE PAIN LEVEL 4-6 Last administered on 01/18/19 03:21; Admin Dose 1 TAB; Start 01/06/19 at 01:00 Lorazepam (Ativan) 1 mg Q6H PRN IV ANXIETY Last administered on 01/18/19at 10:45; Admin Dose 1 MG; Start 01/06/19 at 01:00 Ondansetron HCl (Zofran Inj) 4 mg Q6H PRN IV NAUSEA AND/OR VOMITING; Start 01/06/19 at 01:00 Ranitidine HCl (Zantac) 150 mg BID PO Last administered on 01/18/19 08:40; Admin Dose 150 MG; Start 01/06/19 at 02:01 Meropenem/Sodium Chloride 50 ml @ 100 mls/hr Q12 IVPB Last administered on 01/18/19 09:18; Admin Dose 100 MLS/HR; Start 01/06/19 at 12:00 Calamine/Pramoxine (Caladryl Lotion) 1 applic Q2H PRN TOP itching; Start 01/08/19 at 11:30 Clotrimazole (Lotrimin Cr) 1 applic BID TOP Last administered on 01/18/19at 08:40; Admin Dose 1 APPLIC; Start 01/08/19 at 21:00 Nicotine Polacrilex (Nicorette) 4 mg Q2H PRN BUCCAL cravings Last administered on 01/12/19at 17:31; Admin Dose 4 MG; Start 01/10/19 at 11:00 Lactobacillus Acidophilus/ Rhamnosus (Culturelle) 1 cap BID PO Last administered on 01/18/19at 08:40; Admin Dose 1 CAP; Start 01/11/19 at 21:00 Albuterol (Ventolin Hfa) 2 puff Q6H RESP THERAPY PRN INH SHORTNESS OF BREATH; Start 01/11/19 at 15:00 Bisacodyl (Dulcolax) 10 mg DAILY PRN PO CONSTIPATION; Start 01/11/19 at 15:00 Multivitamins Therapeutic (Theragran) 1 tab DAILY PO Last administered on 01/18/19at 08:40; Admin Dose 1 TAB; Start 01/11/19 at 20:30 JYOTI CRONIN NP Jan 18, 2019 13:42
[2019-01-18 14:00] VITALS: BP 124/68; PULSE 81; RESP 18
--- NOTE | 2019-01-18 18:51 | CONS ---
Consult Date/Type/Reason Admit Date/Time Jan 05, 2019 at 22:58 Initial Consult Date 01/06/19 Type of Consultation: Urology Reason for Consultation Urinary retention and bilateral hydronephrosis. Requesting Provider: HOLLY MINER Date/Time of Note DATE: 01/18/19 TIME: 18:48 Subjective Patient is comfortable and has no complaints. Objective Vitals Vital Signs Date Temp Pulse Resp B/P (MAP) Pulse Ox O2 O2 Flow FiO2 Time Delivery Rate 01/18/19 97.9 81 18 124/68 98 14:00 (86) 01/17/19 Room Air 13:48 Intake and Output 01/17/19 01/17/19 01/18/19 1515:00 23:00 07:00 IntakeIntake Total 50 ml 50 ml OutputOutput Total 1290 ml 525 ml 625 ml BalanceBalance -1240 ml -475 ml -625 ml Exam He is doing much better and is very comfortable doing his self-catheterization Results/Medications Result Diagram: 01/18/19 0617 01/18/19 0617 Results 24 hrs Laboratory Tests Test 01/18/19 06:17 White Blood Count 12.6 H Red Blood Count 3.62 L Hemoglobin 9.6 L Hematocrit 29.9 L Mean Corpuscular Volume 82.6 Mean Corpuscular Hemoglobin 26.5 L Mean Corpuscular Hemoglobin Concent 32.1 Red Cell Distribution Width 14.3 Platelet Count 300 Mean Platelet Volume 10.9 H Immature Granulocytes % 1.800 H Neutrophils % 51.1 Lymphocytes % 29.3 Monocytes % 12.1 H Eosinophils % 4.3 Basophils % 1.4 Nucleated Red Blood Cells % 0.0 Immature Granulocytes # 0.230 H Neutrophils # 6.4 Lymphocytes # 3.7 H Monocytes # 1.5 H Eosinophils # 0.5 Basophils # 0.2 H Nucleated Red Blood Cells # 0.0 Sodium Level 141 Potassium Level 4.8 Chloride Level 107 Carbon Dioxide Level 27 Anion Gap 7 Blood Urea Nitrogen 41 H Creatinine 1.63 H Est Glomerular Filtrat Rate mL/min 44 L Glucose Level 113 Calcium Level 9.1 Phosphorus Level 4.6 Magnesium Level 2.1 Home Meds Active Scripts Ethyl Alcohol (Hand Camera Maker) 236 Ml Gel..ml., 236 ML TP PRN for HAND WASH, #1 BOTTLE Prov:COLLINS SCHREIBER V. OVEN BAKER 01/17/19 [Absorbant Pad] No Conflict Check, #150 PAD ULTRASOB ABDORBANT PAD FOR INCONTINENCE Prov:SCHREIBER,COLLINS V. OVEN BAKER 01/17/19 Multivitamins* (Theragran*) 1 Tab Tab, 1 TAB PO DAILY, #30 TAB Prov:SCHREIBER,COLLINS V. OVEN BAKER 01/17/19 Lactobacillus Rhamnosus GG (Culturelle) 1 Each Capsule, 1 CAP PO BID, #60 CAP Prov:SCHREIBER,COLLINS V. OVEN BAKER 01/17/19 Medications Current Medications Nicotine (Nicoderm 21 Mg/ 24hr) 1 patch DAILY TRANSDERM Last administered on 01/18/19at 08:40; Admin Dose 1 PATCH; Start 01/06/19 at 01:00 Acetaminophen (Tylenol Tab) 650 mg Q6H PRN PO MILD PAIN(1-3)OR ELEVATED TEMP; Start 01/06/19 at 01:00 Acetaminophen/ Hydrocodone Bitart ([place] (5/325)) 1 tab Q6H PRN PO MODERATE PAIN LEVEL 4-6 Last administered on 01/18/19at 03:21; Admin Dose 1 TAB; Start 01/06/19 at 01:00 Lorazepam (Ativan) 1 mg Q6H PRN IV ANXIETY Last administered on 01/18/19at 10:45; Admin Dose 1 MG; Start 01/06/19 at 01:00 Ondansetron HCl (Zofran Inj) 4 mg Q6H PRN IV NAUSEA AND/OR VOMITING; Start 01/06/19 at 01:00 Ranitidine HCl (Zantac) 150 mg BID PO Last administered on 01/18/19at 08:40; Admin Dose 150 MG; Start 01/06/19 at 02:01 Meropenem/Sodium Chloride 50 ml @ 100 mls/hr Q12 IVPB Last administered on 01/18/19at 09:18; Admin Dose 100 MLS/HR; Start 01/06/19 at 12:00 Calamine/Pramoxine (Caladryl Lotion) 1 applic Q2H PRN TOP itching; Start at 11:30 Clotrimazole (Lotrimin Cr) 1 applic BID TOP Last administered on 01/18/19at 08:40; Admin Dose 1 APPLIC; Start 01/08/19 at 21:00 Nicotine Polacrilex (Nicorette) 4 mg Q2H PRN BUCCAL cravings Last administered on 01/12/19at 17:31; Admin Dose 4 MG; Start 01/10/19 at 11:00 Lactobacillus Acidophilus/ Rhamnosus (Culturelle) 1 cap BID PO Last administered on 01/18/19at 08:40; Admin Dose 1 CAP; Start 01/11/19 at 21:00 Albuterol (Ventolin Hfa) 2 puff Q6H RESP THERAPY PRN INH SHORTNESS OF BREATH; Start 01/11/19 at 15:00 Bisacodyl (Dulcolax) 10 mg DAILY PRN PO CONSTIPATION; Start 01/11/19 at 15:00 Multivitamins Therapeutic (Theragran) 1 tab DAILY PO Last administered on 01/18/19at 08:40; Admin Dose 1 TAB; Start 01/11/19 at 20:30 Assessment/Plan Hospital Course (Demo Recall) 58-year-old male was sent to the emergency room by his primary care physician because of recurrent urinary tract infection that could not be treated as an outpatient as he does have multidrug-resistant organisms and he has multiple allergies to oral antibiotics. Patient is known to have a history of hypospadias and underwent surgeries for that. That was complicated by urethral strictures. The patient was seen here in 2013 with urinary retention. He was taught to do self-catheterization. After his discharge he did it for 5 days and then he stopped. He states that his housing condition did change and that is the reason why he did not continue to do it. Over time he started having urinary incontinence and wetting himself. He recently also was evicted from his apartment and now is living in his car. He went to the emergency room at [place] and they were able to insert a 10 American Saunders catheter for him and drained over 2 L of urine. Patient was transferred here because of his insurance. Presently the patient is doing better. During his stay here we were able to insert a larger size catheter. He is able to do self-catheterization with a 14 American and even a 16 American catheter. He He is doing his own self-catheterization and he is doing cath without any problem. He should continue doing the catheterization every 6 hours and try to manage his oral intake to keep the volume of the urine about 500 mL every 6 hours. KELSI PARKER MD Jan 18, 2019 18:51
[2019-01-18 20:26] VITALS: BP 118/75; PULSE 76; RESP 18
[2019-01-18 22:00] VITALS: BP 111/52; PULSE 79; RESP 18
[2019-01-19 01:58] VITALS: BP 127/74; PULSE 85; RESP 18
[2019-01-19] MEDS: LORAZEPAM 2 MG INJ IV PRN (02:02)
[2019-01-19 07:37] VITALS: BP 101/56; PULSE 65; RESP 18
[2019-01-19] MEDS: CLOTRIMAZOLE 1% 30 GM CR TOP SCH (08:31)
[2019-01-19] MEDS: RANITIDINE 150 MG TAB PO SCH (08:36)
[2019-01-19] MEDS: NICOTINE (21 MG/24 HR) PATCH TRANSDERM SCH (08:36)
[2019-01-19] MEDS: MULTIVITAMINS THERAPEUTIC TAB PO SCH (08:36)
[2019-01-19] MEDS: LACTOBACILLUS RHAMNOSUS CAP PO SCH (08:36)
[2019-01-19] MEDS: MEROPENEM 1 GM/50ML(PMX) 50 ML IVPB SCH (08:36)
--- NOTE | 2019-01-19 09:23 | PN ---
DATE: 01/19/2019 SUBJECTIVE: The patient is stable, no events overnight. No fevers, chills, nausea or vomiting. OBJECTIVE: VITAL SIGNS: Blood pressure is 101/56, respirations 18, pulse 55, temperature 97.8. HEENT: Head is normocephalic. NECK: Supple. HEART: Regular rate. LUNGS: Show diminished breath sounds at the base. ABDOMEN: Soft, nontender to palpation without rebound or guarding. EXTREMITIES: Negative for clubbing, cyanosis, no edema. DERMATOLOGIC: No rashes. MUSCULOSKELETAL: No joint effusion. NEUROLOGIC: No change in exam. MEDICATIONS: Reviewed. LABORATORY DATA: Reviewed. IMAGING STUDIES: Reviewed. ASSESSMENT AND PLAN: 1. Nonoliguric acute kidney injury with known baseline creatinine. Etiology of acute kidney injury is secondary to obstructive uropathy and hemodynamics. Renal function has slowly been improving. Co ntinue current treatment plans, supportive care, renally dose all medications. Continue intermittent catheterization. 2. Bilateral hydronephrosis secondary to urinary retention. Continue intermittent catheterization. Follow up with urology. 3. Anemia. Monitor hemoglobin and hematocrit levels. 4. Mineral bone disorder, monitor calcium and phosphorus levels. 5. Sepsis secondary to E. coli. Continue current antibiotic regimen. 6. Thyroid nodule status post biopsy. Continue to monitor. Dictated By: YESSENIA BROTHERS DO NR/NTS Conf#: [id number] DID#: [id number] CC: MADISON GOODE MD; HOLLY MINER MD; YESSENIA BROTHERS DO;*EndCC*
--- NOTE | 2019-01-19 10:02 | PDOCDIS ---
Discharge Instructions CONDITION [id number] Patient Condition: [id number] Stable HOME CARE INSTRUCTIONS: [id number] Diet Instructions: [id number] Regular [id number] Special Diet: [id number] avoid greasy food FOLLOW UP/APPOINTMENTS Follow-up Plan Follow Up with primary care physician in 1 week COLLINS SCHREIBER NP Jan 19, 2019 10:02
--- NOTE | 2019-01-19 10:11 | DS ---
Date/Time of Note Date/Time of Note DATE: 01/19/19 TIME: 10:06 Discharge Summary Admission/Discharge Info Admit Date/Time Jan 05, 2019 at 22:58 Discharge Date/Time Discharge Diagnosis Bacteremia due to Escherichia coli E. coli UTI Urinary retention/self cath Chronic kidney disease (CKD) stage G3b/A2 COPD Bilateral nodular goiter Homelessness Tobacco dependency Meth/cocaine abuse Patient Condition: Stable Consults Dr. Thompson, nephrology Dr. Cervantes, urology Dr. Hale, infectious disease Hospital Course 58 yo M w/ckd,recurrent uti w/MDRO,multiple abx allergies,urinary retention requiring self cath,COPD who also stopped doing self cath recently ,tx from osh for incontinence.. Outside hospital cultures showed E. coli UTI with bacteremia secondary to UTI. Patient completed IV antibiotic course per infectious disease recommendations. Patient was being followed by urologist and he was continued on self- catheterization which he used to do prior admission. Patient was provided with supplies for self-catheterization. Patient was also being followed by weed eradicator for underlying chronic kidney disease. His creatinine remained stable without much fluctuations. Patient also underwent a thyroid biopsy and showed benign bilateral nodular goiter, does not need any further intervention. He was counseled on cessation of tobacco products. He was counseled on cessation of meth/cocaine abuse. Patient is also homeless. He was seen by social services aide and was provided with correction assistance. At this time, patient does not need any further inpatient work-up and he is able for discharge with outpatient follow-up. Approximately 60-minute was spent in coordinating the discharge on this patient. Patient was seen in collaboration with Dr. Brannon. Home Meds Active Scripts Ethyl Alcohol (Hand Unix Manager) 236 Ml Gel..ml., 236 ML TP PRN for HAND WASH, #1 BOTTLE Prov:SCHREIBER,COLLINS V. PRODUCTION CONTROL TECHNOLOGIST 01/17/19 [Absorbant Pad] No Conflict Check, #150 PAD ULTRASOB ABDORBANT PAD FOR INCONTINENCE Prov:SCHREIBER,COLLINS V. PRODUCTION CONTROL TECHNOLOGIST 01/17/19 Multivitamins* (Theragran*) 1 Tab Tab, 1 TAB PO DAILY, #30 TAB Prov:SCHREIBER,COLLINS V. PRODUCTION CONTROL TECHNOLOGIST 01/17/19 Lactobacillus Rhamnosus GG (Culturelle) 1 Each Capsule, 1 CAP PO BID, #60 CAP Prov:SCHREIBER,COLLINS V. PRODUCTION CONTROL TECHNOLOGIST 01/17/19 Follow-up Plan Follow Up with primary care physician in 1 week Primary Care Provider [facility] Pending Labs Laboratory Tests Test 01/19/19 07:30 Sodium Level 144 mmol/L (135-144) Potassium Level 4.7 mmol/L (3.5-5.1) Chloride Level 106 mmol/L (97-110) Carbon Dioxide Level 28 mmol/L (21-31) Anion Gap 10 (5-13) Blood Urea Nitrogen 41 mg/dl (7-20) Creatinine 1.74 mg/dl (0.61-1.24) Est Glomerular Filtrat Rate mL/min 41 mL/min (>60) Glucose Level 99 mg/dl (70-220) Calcium Level 9.5 mg/dl (8.4-10.2) Phosphorus Level 4.6 mg/dl (2.5-4.9) Magnesium Level 2.2 mg/dl (1.7-2.5) COLLINS SCHREIBER NP Jan 19, 2019 10:11
[2019-01-19] MEDS ORDERED: ALBU8.5H8 INH (10:24)
--- NOTE | 2019-01-19 11:47 | CONS ---
Assessment/Plan Assessment/Plan Hospital Course (Demo Recall) All noted, no acute events Microbiology: Blood cultures negative since admission blood culture from another facility grew E. coli, resistant to Cipro and Levaquin Allergy: Penicillin, sulfa Antimicrobials: Meropenem Physical examination: This is well-developed middle-aged white man who is alert in no distress. Head atraumatic normocephalic sclera nonicteric. Neck is supple. Chest rise symmetrical breath sounds clear. Heart: S1-S2. Abdomen obese soft bowel sounds present. Extremities without cyanosis Assessment: 1. S/p E coli bacteremia per report from [facility] 2. Urinary retention 3. Chronic kidney disease 4. Homelessness 5. Polysubstance abuse 6. COPD 7. Thyroid goiter Plan: Patient remains stable, last dose of Merrem today Consultation Date/Type/Reason Admit Date/Time Jan 05, 2019 at 22:58 Initial Consult Date 01/06/19 Type of Consult id Requesting Provider: HOLLY MINER Date/Time of Note DATE: 01/19/19 TIME: 11:46 Exam/Review of Systems Exam Vitals Vital Signs Date Temp Pulse Resp B/P (MAP) Pulse Ox O2 O2 Flow FiO2 Time Delivery Rate 01/19/19 97.8 65 18 101/56 94 Room Air 07:37 (71) Intake and Output 01/18/19 01/18/19 01/19/19 1515:00 23:00 07:00 IntakeIntake Total 1730 ml 650 ml OutputOutput Total 575 ml BalanceBalance 1730 ml 75 ml Results Result Diagram: 01/18/19 0617 01/19/19 0730 Results 24hrs Laboratory Tests Test 01/19/19 07:30 Sodium Level 144 Potassium Level 4.7 Chloride Level 106 Carbon Dioxide Level 28 Anion Gap 10 Blood Urea Nitrogen 41 H Creatinine 1.74 H Est Glomerular Filtrat Rate mL/min 41 L Glucose Level 99 Calcium Level 9.5 Phosphorus Level 4.6 Magnesium Level 2.2 Medications Medication Current Medications Nicotine (Nicoderm 21 Mg/ 24hr) 1 patch DAILY TRANSDERM Last administered on 01/19/19at 08:36; Admin Dose 1 PATCH; Start 01/06/19 at 01:00 Acetaminophen (Tylenol Tab) 650 mg Q6H PRN PO MILD PAIN(1-3)OR ELEVATED TEMP; Start 01/06/19 at 01:00 Acetaminophen/ Hydrocodone Bitart ([place] (5/325)) 1 tab Q6H PRN PO MODERATE PAIN LEVEL 4-6 Last administered on 01/18/19 03:21; Admin Dose 1 TAB; Start 01/06/19 at 01:00 Lorazepam (Ativan) 1 mg Q6H PRN IV ANXIETY Last administered on 01/19/19 02:02; Admin Dose 1 MG; Start 01/06/19 at 01:00 Ondansetron HCl (Zofran Inj) 4 mg Q6H PRN IV NAUSEA AND/OR VOMITING; Start 01/06/19 at 01:00 Ranitidine HCl (Zantac) 150 mg BID PO Last administered on 01/19/19 08:36; Admin Dose 150 MG; Start 01/06/19 at 02:01 Meropenem/Sodium Chloride 50 ml @ 100 mls/hr Q12 IVPB Last administered on 01/19/19 08:36; Admin Dose 100 MLS/HR; Start 01/06/19 at 12:00 Calamine/Pramoxine (Caladryl Lotion) 1 applic Q2H PRN TOP itching; Start 01/08/19 at 11:30 Clotrimazole (Lotrimin Cr) 1 applic BID TOP Last administered on 01/18/19 08:40; Admin Dose 1 APPLIC; Start 01/08/19 at 21:00 Nicotine Polacrilex (Nicorette) 4 mg Q2H PRN BUCCAL cravings Last administered on 01/12/19 17:31; Admin Dose 4 MG; Start 01/10/19 at 11:00 Lactobacillus Acidophilus/ Rhamnosus (Culturelle) 1 cap BID PO Last administered on 01/19/19 08:36; Admin Dose 1 CAP; Start 01/11/19 at 21:00 Albuterol (Ventolin Hfa) 2 puff Q6H RESP THERAPY PRN INH SHORTNESS OF BREATH Last administered on 01/19/19 10:06; Admin Dose 2 PUFF; Start 01/11/19 at 15:00 Bisacodyl (Dulcolax) 10 mg DAILY PRN PO CONSTIPATION; Start 01/11/19 at 15:00 Multivitamins Therapeutic (Theragran) 1 tab DAILY PO Last administered on 01/19/19 08:36; Admin Dose 1 TAB; Start 01/11/19 at 20:30 JYOTI CRONIN NP Jan 19, 2019 11:47
== END 2019-01-19 12:55 | disposition home or self-care (01) | DRG 872 ==
LOC: 6WM 22:58 → 5EC 01-10 17:23
PROVIDERS: ADMIT Internal Medicine; ATTEND Internal Medicine
PROC: 0GBG3ZX Excision of Left Thyroid Gland Lobe, Percutaneous Approach, Diagnostic (ICD-10-PCS; principal; 2019-01-15)
PROC: 0GBH3ZX Excision of Right Thyroid Gland Lobe, Percutaneous Approach, Diagnostic (ICD-10-PCS; 2019-01-15)
DX: A41.9 Sepsis, unspecified organism (principal); N39.0 Urinary tract infection, site not specified; N17.9 Acute kidney failure, unspecified; N13.30 Unspecified hydronephrosis; Q54.9 Hypospadias, unspecified; F19.90 Other psychoactive substance use, unspecified, uncomplicated; F17.200 Nicotine dependence, unspecified, uncomplicated; R33.9 Retention of urine, unspecified; J44.9 Chronic obstructive pulmonary disease, unspecified; B96.20 Unspecified Escherichia coli [E. coli] as the cause of diseases classified elsewhere; I12.9 Hypertensive chronic kidney disease with stage 1 through stage 4 chronic kidney disease, or unspecified chronic kidney disease; N18.3 Chronic kidney disease, stage 3 (moderate); D64.9 Anemia, unspecified; K59.00 Constipation, unspecified; E04.9 Nontoxic goiter, unspecified; Z59.0 Homelessness
CPT/HCPCS: 71250; 74018; 76536; 76775; 80048; 80053; 80061; 80069; 80307; 81001; 81003; 82043; 82565; 82728; 82962; 83036; 83540; 83735; 83880; 84100; 84155; 84300; 84443; 84520; 85025; 85610; 85651; 86592; 86800; 86803; 87081; 87086; 87340; 88104; 88305; 88313; A4310; J1650; J1815; J2060; J2185; J3370; J7050; J7120

== ENCOUNTER 2019-03-05 03:15 | Inpatient (IN) | payer OTHER ==
[~2019-03-05] VITALS: Ht 175.3 cm; Wt 79.1 kg
[~2019-03-05 03:15] MED LIST: ALBU8.5H8 INH; FERR325T5 PO; LACT1CAP28 PO; MELA2.5T PO; MULTI PO; NICO-546 TRANSDERM; [UNRECOGNIZED DRUG - CODE] TP; [UNRECOGNIZED DRUG - SUPPLY]
[2019-03-05 03:20] VITALS: Ht 175.3 cm; Wt 79.1 kg
[2019-03-05] MEDS ORDERED: CIPROFLOXACIN 400MG/D5W 200 ML IVPB STA (04:31)
[2019-03-05] MEDS ORDERED: ONDANSETRON 4 MG INJ IV PRN ×2 (05:30→06:30)
[2019-03-05] MEDS ORDERED: ACETAMINOPHEN 325 MG TAB PO PRN ×2 (05:30→06:30)
[2019-03-05] MEDS: SOD CHLORIDE 0.9% 1,000 ML IV SCH ×3 (06:07→21:09)
[2019-03-05] MEDS ORDERED: ALBUTEROL 0.083% (NEB) 2.5 MG/3 ML AMP NEB PRN (06:30)
[2019-03-05] MEDS ORDERED: NACL 0.9% 3 ML SYG IV SCH (06:30)
[2019-03-05 08:40] VITALS: BP 114/70; PULSE 73; RESP 18
[2019-03-05] MEDS: HEPARIN 5,000 UNIT/1 ML VIAL SC SCH ×2 (08:44→21:08)
[2019-03-05 14:33] VITALS: BP 118/71; PULSE 77; RESP 19
[2019-03-05] MEDS: morphine 2 MG INJ IV PRN (15:03)
[2019-03-05] MEDS ORDERED: RANITIDINE 150 MG TAB PO SCH (16:28)
[2019-03-05 20:03] VITALS: BP 118/63; PULSE 95; RESP 18
[2019-03-05] MEDS: NICOTINE (21 MG/24 HR) PATCH TRANSDERM SCH (21:08)
[2019-03-05] MEDS: HYDROCODONE/APAP (10/325) TAB PO PRN (22:20)
[2019-03-06 01:49] VITALS: BP 89/53; PULSE 77; RESP 18
[2019-03-06] MEDS ORDERED: SOD CHLORIDE 0.9% 500 ML IV ONE (03:00)
[2019-03-06 04:09] VITALS: BP 112/59; PULSE 71; RESP 18
[2019-03-06] MEDS: CIPROFLOXACIN 400MG/D5W 200 ML IVPB SCH (04:30)
[2019-03-06] MEDS ORDERED: DIPHENHYDRAMINE 50 MG CAP PO PRN (05:30)
[2019-03-06 07:59] VITALS: BP 114/70; PULSE 74; RESP 18
[2019-03-06] MEDS: SOD CHLORIDE 0.9% 1,000 ML IV SCH ×2 (08:47→15:52)
[2019-03-06] MEDS: HEPARIN 5,000 UNIT/1 ML VIAL SC SCH ×2 (10:20→21:07)
[2019-03-06] MEDS: NICOTINE (21 MG/24 HR) PATCH TRANSDERM SCH (10:20)
[2019-03-06] MEDS: CALCIUM CARBONATE 500 MG CHEW TAB PO PRN ×2 (10:31→16:08)
[2019-03-06] MEDS: HYDROCODONE/APAP (10/325) TAB PO PRN (12:16)
[2019-03-06 13:50] VITALS: BP 106/64; PULSE 68; RESP 18
[2019-03-06] MEDS: RANITIDINE 150 MG TAB PO SCH (16:59)
[2019-03-06 20:24] VITALS: BP 133/78; PULSE 75; RESP 18
[2019-03-07] MEDS: LORAZEPAM 2 MG INJ IV PRN ×2 (00:32→21:04)
[2019-03-07 02:34] VITALS: BP 120/60; PULSE 73; RESP 20
[2019-03-07] MEDS: CIPROFLOXACIN 400MG/D5W 200 ML IVPB SCH (04:26)
[2019-03-07] MEDS: SOD CHLORIDE 0.9% 1,000 ML IV SCH ×2 (05:27→14:29)
[2019-03-07 07:35] VITALS: BP 96/58; PULSE 64; RESP 18
[2019-03-07] MEDS: NICOTINE (21 MG/24 HR) PATCH TRANSDERM SCH (08:55)
[2019-03-07] MEDS: RANITIDINE 150 MG TAB PO SCH (08:55)
[2019-03-07] MEDS: HEPARIN 5,000 UNIT/1 ML VIAL SC SCH ×2 (08:56→21:06)
[2019-03-07] MEDS: SOD FERRIC GLUC COMPLX 125 MG in SOD CHLORIDE 0.9% 100 ML IVPB SCH (12:38)
[2019-03-07 14:00] VITALS: BP 105/67; PULSE 65; RESP 20
[2019-03-07] MEDS ORDERED: MEROPENEM 500MG/50 ML (PMX) 50 ML IVPB SCH (15:00)
[2019-03-07] MEDS: MEROPENEM 500MG/50 ML (PMX) 50 ML IVPB SCH (16:50)
[2019-03-07 21:32] VITALS: BP 110/65; PULSE 75; RESP 18
[2019-03-08 02:39] VITALS: BP 106/64; PULSE 73; RESP 18
[2019-03-08 08:27] VITALS: BP 108/71; RESP 16
[2019-03-08] MEDS: NICOTINE (21 MG/24 HR) PATCH TRANSDERM SCH (09:19)
[2019-03-08] MEDS: RANITIDINE 150 MG TAB PO SCH (09:19)
[2019-03-08] MEDS: MEROPENEM 500MG/50 ML (PMX) 50 ML IVPB SCH ×2 (09:19→20:57)
[2019-03-08] MEDS: HEPARIN 5,000 UNIT/1 ML VIAL SC SCH ×2 (09:21→21:02)
[2019-03-08] MEDS: SOD CHLORIDE 0.9% 1,000 ML IV SCH ×2 (13:33→21:52)
[2019-03-08] MEDS: SOD FERRIC GLUC COMPLX 125 MG in SOD CHLORIDE 0.9% 100 ML IVPB SCH (14:41)
[2019-03-08 20:00] VITALS: BP 107/63; PULSE 66; RESP 17
[2019-03-08] MEDS: LORAZEPAM 2 MG INJ IV PRN (23:38)
[2019-03-09 02:36] VITALS: BP 110/68; PULSE 62; RESP 18
[2019-03-09 08:00] VITALS: BP 105/66; PULSE 65; RESP 14
[2019-03-09] MEDS: MEROPENEM 500MG/50 ML (PMX) 50 ML IVPB SCH ×2 (08:36→20:25)
[2019-03-09] MEDS: RANITIDINE 150 MG TAB PO SCH (08:36)
[2019-03-09] MEDS: HEPARIN 5,000 UNIT/1 ML VIAL SC SCH ×2 (08:37→20:30)
[2019-03-09] MEDS: NICOTINE (21 MG/24 HR) PATCH TRANSDERM SCH (08:42)
[2019-03-09] MEDS: SOD FERRIC GLUC COMPLX 125 MG in SOD CHLORIDE 0.9% 100 ML IVPB SCH (12:34)
[2019-03-09 14:00] VITALS: BP 90/63; PULSE 75; RESP 20
[2019-03-09] MEDS: HYDROCODONE/APAP (10/325) TAB PO PRN (20:24)
[2019-03-09 22:11] VITALS: BP 117/71; PULSE 73; RESP 17
[2019-03-10 02:09] VITALS: BP 108/66; PULSE 68; RESP 18
[2019-03-10] MEDS: SOD CHLORIDE 0.9% 1,000 ML IV SCH (02:26)
[2019-03-10] MEDS: LORAZEPAM 2 MG INJ IV PRN ×3 (02:41→20:49)
[2019-03-10 08:00] VITALS: BP 100/66; PULSE 65; RESP 18
[2019-03-10] MEDS: MEROPENEM 500MG/50 ML (PMX) 50 ML IVPB SCH ×2 (08:26→20:37)
[2019-03-10] MEDS: NICOTINE (21 MG/24 HR) PATCH TRANSDERM SCH (08:26)
[2019-03-10] MEDS: RANITIDINE 150 MG TAB PO SCH (08:26)
[2019-03-10] MEDS: HEPARIN 5,000 UNIT/1 ML VIAL SC SCH ×2 (08:31→20:38)
[2019-03-10] MEDS: SOD FERRIC GLUC COMPLX 125 MG in SOD CHLORIDE 0.9% 100 ML IVPB SCH (13:31)
[2019-03-10 14:00] VITALS: BP 106/62; PULSE 75; RESP 18
[2019-03-10 19:35] VITALS: BP 107/63; PULSE 73; RESP 17
[2019-03-11 01:46] VITALS: BP 92/52; PULSE 70; RESP 18
[2019-03-11 07:31] VITALS: BP 104/63; PULSE 64; RESP 18
[2019-03-11] MEDS: RANITIDINE 150 MG TAB PO SCH (08:45)
[2019-03-11] MEDS: MEROPENEM 500MG/50 ML (PMX) 50 ML IVPB SCH ×2 (08:45→20:30)
[2019-03-11] MEDS: NICOTINE (21 MG/24 HR) PATCH TRANSDERM SCH (08:46)
[2019-03-11] MEDS: HEPARIN 5,000 UNIT/1 ML VIAL SC SCH ×2 (08:48→20:34)
[2019-03-11] MEDS: MULTIVIT/CA CARB/B CMPLX/FA TAB PO SCH (12:24)
[2019-03-11] MEDS: SOD FERRIC GLUC COMPLX 125 MG in SOD CHLORIDE 0.9% 100 ML IVPB SCH (12:24)
[2019-03-11 13:58] VITALS: BP 107/68; PULSE 71; RESP 18
[2019-03-11] MEDS: LORAZEPAM 2 MG INJ IV PRN (18:02)
[2019-03-11 20:40] VITALS: BP 97/54; PULSE 70; RESP 16
[2019-03-11] MEDS: morphine 2 MG INJ IV PRN (20:47)
[2019-03-12] MEDS: LORAZEPAM 2 MG INJ IV PRN (00:08)
[2019-03-12 02:09] VITALS: BP 90/42; PULSE 76; RESP 18
[2019-03-12] MEDS: HYDROCODONE/APAP (10/325) TAB PO PRN (04:40)
[2019-03-12 07:40] VITALS: BP 80/53; PULSE 57; RESP 18
[2019-03-12] MEDS: MEROPENEM 500MG/50 ML (PMX) 50 ML IVPB SCH ×2 (08:50→20:03)
[2019-03-12] MEDS: RANITIDINE 150 MG TAB PO SCH (08:51)
[2019-03-12] MEDS: NICOTINE (21 MG/24 HR) PATCH TRANSDERM SCH (08:51)
[2019-03-12] MEDS: MULTIVIT/CA CARB/B CMPLX/FA TAB PO SCH (08:51)
[2019-03-12] MEDS: HEPARIN 5,000 UNIT/1 ML VIAL SC SCH ×2 (08:55→20:07)
[2019-03-12] MEDS ORDERED: SOD CHLORIDE 0.9% 500 ML IV ONE (09:00)
[2019-03-12 09:47] VITALS: BP 97/57
[2019-03-12] MEDS: LORAZEPAM 0.5 MG TAB PO PRN ×2 (14:14→20:06)
[2019-03-12 14:21] VITALS: BP 106/66; PULSE 67; RESP 17
[2019-03-12 20:08] VITALS: BP 91/51; PULSE 74; RESP 18
[2019-03-13] MEDS: HYDROCODONE/APAP (10/325) TAB PO PRN (01:18)
[2019-03-13 01:37] VITALS: BP 91/55; PULSE 65; RESP 18
[2019-03-13 07:18] VITALS: BP 86/50; PULSE 60; RESP 18
[2019-03-13] MEDS: MEROPENEM 500MG/50 ML (PMX) 50 ML IVPB SCH ×2 (08:22→22:11)
[2019-03-13] MEDS: MULTIVIT/CA CARB/B CMPLX/FA TAB PO SCH (08:22)
[2019-03-13] MEDS: RANITIDINE 150 MG TAB PO SCH (08:22)
[2019-03-13] MEDS: NICOTINE (21 MG/24 HR) PATCH TRANSDERM SCH (08:23)
[2019-03-13] MEDS: HEPARIN 5,000 UNIT/1 ML VIAL SC SCH ×2 (08:34→21:54)
[2019-03-13 11:00] VITALS: BP 106/64
[2019-03-13] MEDS: LORAZEPAM 0.5 MG TAB PO PRN ×2 (12:04→21:54)
[2019-03-13 14:00] VITALS: BP_SYST 115; BP_SYST 129; BP_DIAS 55; BP_DIAS 75; PULSE 84; RESP 16; RESP 18
[2019-03-13 19:35] VITALS: BP 94/57; PULSE 81; RESP 18
[2019-03-14] MEDS: HYDROCODONE/APAP (10/325) TAB PO PRN (00:29)
[2019-03-14 02:30] VITALS: BP 90/50; PULSE 6; RESP 17
[2019-03-14] MEDS: CALCIUM CARBONATE 500 MG CHEW TAB PO PRN (04:56)
[2019-03-14 07:17] VITALS: BP 96/64; PULSE 58; RESP 18
[2019-03-14] MEDS: MULTIVIT/CA CARB/B CMPLX/FA TAB PO SCH (09:27)
[2019-03-14] MEDS: RANITIDINE 150 MG TAB PO SCH (09:27)
[2019-03-14] MEDS: HEPARIN 5,000 UNIT/1 ML VIAL SC SCH ×2 (09:28→21:24)
[2019-03-14] MEDS: NICOTINE (21 MG/24 HR) PATCH TRANSDERM SCH (09:28)
[2019-03-14] MEDS: MEROPENEM 500MG/50 ML (PMX) 50 ML IVPB SCH ×2 (09:30→21:15)
[2019-03-14] MEDS: LORAZEPAM 0.5 MG TAB PO PRN ×2 (10:08→21:15)
[2019-03-14 14:37] VITALS: BP 100/62; PULSE 71; RESP 14
[2019-03-14 20:00] VITALS: BP 116/70; PULSE 74; RESP 18
[2019-03-15] MEDS: morphine 2 MG INJ IV PRN (00:25)
[2019-03-15 02:00] VITALS: BP 116/72; PULSE 68; RESP 17
[2019-03-15] MEDS: CALCIUM CARBONATE 500 MG CHEW TAB PO PRN (02:14)
[2019-03-15 08:00] VITALS: BP 108/66; PULSE 70; RESP 14
[2019-03-15] MEDS: MULTIVIT/CA CARB/B CMPLX/FA TAB PO SCH (08:16)
[2019-03-15] MEDS: RANITIDINE 150 MG TAB PO SCH (08:16)
[2019-03-15] MEDS: HEPARIN 5,000 UNIT/1 ML VIAL SC SCH ×2 (08:17→20:01)
[2019-03-15] MEDS: NICOTINE (21 MG/24 HR) PATCH TRANSDERM SCH (08:18)
[2019-03-15 14:00] VITALS: BP 113/73; PULSE 77; RESP 15
[2019-03-15] MEDS: LORAZEPAM 0.5 MG TAB PO PRN ×2 (14:04→23:20)
[2019-03-15 20:01] VITALS: BP 110/69; PULSE 76; RESP 17
[2019-03-16 01:43] VITALS: BP 104/59; PULSE 70; RESP 18
[2019-03-16 08:00] VITALS: BP 106/62; PULSE 76; RESP 20
[2019-03-16] MEDS: RANITIDINE 150 MG TAB PO SCH (09:06)
[2019-03-16] MEDS: MULTIVIT/CA CARB/B CMPLX/FA TAB PO SCH (09:06)
[2019-03-16] MEDS: NICOTINE (21 MG/24 HR) PATCH TRANSDERM SCH (09:06)
[2019-03-16] MEDS: HEPARIN 5,000 UNIT/1 ML VIAL SC SCH ×2 (09:10→20:18)
[2019-03-16 14:00] VITALS: BP 106/67; PULSE 70; RESP 18
[2019-03-16] MEDS: CALCIUM CARBONATE 500 MG CHEW TAB PO PRN (18:53)
[2019-03-16 19:50] VITALS: BP 116/75; PULSE 74; RESP 18
[2019-03-16] MEDS: LORAZEPAM 0.5 MG TAB PO PRN (22:37)
[2019-03-17] MEDS: HYDROCODONE/APAP (10/325) TAB PO PRN (01:38)
[2019-03-17 01:42] VITALS: BP 110/68; PULSE 78; RESP 18
[2019-03-17 08:17] VITALS: BP 111/69; PULSE 73; RESP 16
[2019-03-17] MEDS: RANITIDINE 150 MG TAB PO SCH (08:36)
[2019-03-17] MEDS: MULTIVIT/CA CARB/B CMPLX/FA TAB PO SCH (08:36)
[2019-03-17] MEDS: NICOTINE (21 MG/24 HR) PATCH TRANSDERM SCH (08:37)
[2019-03-17] MEDS: HEPARIN 5,000 UNIT/1 ML VIAL SC SCH ×2 (08:37→20:00)
[2019-03-17 14:14] VITALS: BP 109/66; PULSE 80; RESP 16
[2019-03-17 19:52] VITALS: BP 118/73; PULSE 72; RESP 16
[2019-03-17] MEDS: LORAZEPAM 0.5 MG TAB PO PRN (23:37)
[2019-03-18] MEDS: HYDROCODONE/APAP (10/325) TAB PO PRN ×3 (00:39→23:21)
[2019-03-18 01:12] VITALS: BP 113/66; PULSE 73; RESP 16
[2019-03-18 07:30] VITALS: BP 124/58; PULSE 83; RESP 18
[2019-03-18] MEDS: RANITIDINE 150 MG TAB PO SCH (08:58)
[2019-03-18] MEDS: MULTIVIT/CA CARB/B CMPLX/FA TAB PO SCH (08:58)
[2019-03-18] MEDS: NICOTINE (21 MG/24 HR) PATCH TRANSDERM SCH (08:59)
[2019-03-18] MEDS: HEPARIN 5,000 UNIT/1 ML VIAL SC SCH ×2 (09:00→20:07)
[2019-03-18] MEDS: LORAZEPAM 0.5 MG TAB PO PRN ×2 (11:41→20:05)
[2019-03-18 15:00] VITALS: BP 118/68; PULSE 72; RESP 17
[2019-03-18 19:50] VITALS: BP 103/62; PULSE 73; RESP 20
[2019-03-19 01:20] VITALS: BP 106/59; PULSE 68; RESP 19
[2019-03-19 07:53] VITALS: BP 108/68; PULSE 72; RESP 18
[2019-03-19] MEDS: MULTIVIT/CA CARB/B CMPLX/FA TAB PO SCH (08:09)
[2019-03-19] MEDS: HEPARIN 5,000 UNIT/1 ML VIAL SC SCH ×2 (08:10→21:08)
[2019-03-19] MEDS: RANITIDINE 150 MG TAB PO SCH (08:10)
[2019-03-19] MEDS: NICOTINE (21 MG/24 HR) PATCH TRANSDERM SCH (08:10)
[2019-03-19 14:18] VITALS: BP 136/77; PULSE 80; RESP 18
[2019-03-19] MEDS ORDERED: ZOLPIDEM 5 MG TAB PO PRN (20:00)
[2019-03-19 20:35] VITALS: BP 115/70; PULSE 81; RESP 19
[2019-03-20] MEDS: LORAZEPAM 0.5 MG TAB PO PRN ×2 (00:05→12:23)
[2019-03-20 01:44] VITALS: BP 114/58; PULSE 75; RESP 19
[2019-03-20] MEDS: CALCIUM CARBONATE 500 MG CHEW TAB PO PRN (03:47)
[2019-03-20 08:00] VITALS: BP 98/59; PULSE 70; RESP 16
[2019-03-20] MEDS: MULTIVIT/CA CARB/B CMPLX/FA TAB PO SCH (08:57)
[2019-03-20] MEDS: NICOTINE (21 MG/24 HR) PATCH TRANSDERM SCH (08:57)
[2019-03-20] MEDS: RANITIDINE 150 MG TAB PO SCH (08:57)
[2019-03-20] MEDS: HEPARIN 5,000 UNIT/1 ML VIAL SC SCH (08:58)
== END 2019-03-20 14:55 | disposition home or self-care (01) | DRG 690 ==
LOC: E/R 03:15 → MS3 05:22
PROVIDERS: ADMIT Internal Medicine; ATTEND Internal Medicine
DX: N13.6 Pyonephrosis (principal); N11.1 Chronic obstructive pyelonephritis; E87.2 Acidosis; N17.9 Acute kidney failure, unspecified; I12.9 Hypertensive chronic kidney disease with stage 1 through stage 4 chronic kidney disease, or unspecified chronic kidney disease; N18.4 Chronic kidney disease, stage 4 (severe); Z87.710 Personal history of (corrected) hypospadias; Z59.0 Homelessness; R33.9 Retention of urine, unspecified; E04.1 Nontoxic single thyroid nodule; D63.1 Anemia in chronic kidney disease; Z72.0 Tobacco use; B96.5 Pseudomonas (aeruginosa) (mallei) (pseudomallei) as the cause of diseases classified elsewhere; B96.89 Other specified bacterial agents as the cause of diseases classified elsewhere; N31.2 Flaccid neuropathic bladder, not elsewhere classified; Z16.24 Resistance to multiple antibiotics
CPT/HCPCS: 36415; 71045; 76775; 78806; 80048; 80053; 80069; 81001; 81003; 82043; 82436; 82728; 83540; 83605; 83735; 83880; 84100; 84133; 84145; 84153; 84154; 84155; 84300; 85025; 87086; 94664; 96374; A9570; J0744; J1644; J2060; J2185; J2270; J2916; J7030; J7040